=== PATIENT | male | born 1955 | race Caucasian/White ===

== ENCOUNTER 2020-05-14 10:18 | Outpatient (REF) | payer OTHER, SELFPAY ==
[2020-05-14 10:55] LABS: Estimated Average Glucose 203 mg/dL; Hemoglobin A1c % 8.7 %
[2020-05-14 10:59] LABS: Hematocrit 45.4 % (42-52); Hemoglobin 14.9 g/dl (14.0-18.0); Mean Corpuscular HGB Conc 32.8 g/dl (31.0-36.0); Mean Corpuscular Hemoglobin 29.9 pg (27.0-33.0); Mean Corpuscular Volume 91.2 fL (80-98); Mean Platelet Volume 10.9 fL (9.4-12.4); Platelet Count 226 X10*3/uL (160-400); Red Blood Count 4.98 X10*6/uL (4.60-5.80); Red Cell Distribution Width 12.8 % (11.0-16.0); White Blood Count 10.4 X10*3/uL (4.8-10.8)
[2020-05-14 11:17] LABS: Alanine Aminotransferase 12 U/L (0-40); Alkaline Phosphatase 54 U/L (39-117); Anion Gap 12 (12-20); Aspartate Amino Transferase 12 U/L (5-37); Bilirubin Direct 0.2 mg/dL (0.0-0.5); Bilirubin Total 0.5 mg/dL (0.0-1.0); Blood Urea Nitrogen 17 mg/dL (9-16); Calcium 9.2 mg/dL (8.4-10.2); Carbon Dioxide 31 mmol/L (22-29); Chloride 102 mmol/L (96-108); Cholesterol 140 mg/dL; Estimated Glomerular Filt Rate > 60; Glucose Random 136 mg/dL (60-115); HDL Cholesterol 31 mg/dL; LDL Cholesterol Calculated 84 mg/dl; Potassium 4.4 mmol/L (3.3-5.1); Sodium 141 mmol/L (135-145); Triglycerides 128 mg/dL
[2020-05-14 11:25] LABS: Thyroid Stimulating Hormone 2.67 uIU/mL (0.32-4.0)
[2020-05-19 13:22] LABS: Vitamin D 25-OH, D2 <4 ng/mL; Vitamin D 25-OH, D3 13 ng/mL; Vitamin D 25-OH, Total 13 ng/mL (30-100)
== END 2020-05-14 10:19 | disposition home or self-care (01) ==
LOC: HO.LAB 10:18
PROVIDERS: PCP Internal Medicine; Visit Provider Internal Medicine
DX: I10 Essential (primary) hypertension (principal); E11.39 Type 2 diabetes mellitus with other diabetic ophthalmic complication; E11.65 Type 2 diabetes mellitus with hyperglycemia; F41.9 Anxiety disorder, unspecified; K21.9 Gastro-esophageal reflux disease without esophagitis
CPT/HCPCS: 36415; 80048; 80061; 80076; 82306; 83036; 84443; 85027

== ENCOUNTER → 2020-06-28 08:31 | Outpatient (BNVA) | payer OTHER, SELFPAY | PROVIDERS: PCP Internal Medicine; Visit Provider Internal Medicine | DX: S50.11XA Contusion of right forearm, initial encounter (principal); S50.811A Abrasion of right forearm, initial encounter; W22.8XXA Striking against or struck by other objects, initial encounter | CPT/HCPCS: 73090; 99203 ==

== ENCOUNTER 2020-07-30 16:01 | Outpatient (REF) | payer OTHER, SELFPAY ==
[2020-07-31 11:27] LABS: Immunoglobulin A 297 mg/dL (70-320)
[2020-08-01 21:51] LABS: Transglutaminase Ab IgG 1 U/mL; Transglutaminase IgA 1 U/mL
[2020-08-01 22:42] LABS: Gliadin Deamidated IgA Ab 4 Units; Gliadin Deamidated IgG Ab 2 Units
[2020-08-05 12:06] LABS: Endomysial IgA Antibody Negative (Negative)
== END 2020-07-30 16:02 | disposition home or self-care (01) ==
LOC: HO.LAB 16:01
PROVIDERS: PCP Internal Medicine; Visit Provider Internal Medicine
DX: R19.7 Diarrhea, unspecified (principal)
CPT/HCPCS: 36415; 82784; 83516; 86255; 86256

== ENCOUNTER 2020-08-23 10:14 | Day surgery (SDC) | payer OTHER, SELFPAY ==
--- NOTE | 2020-08-22 10:27 | P.CONAN_ITS ---
Documented by User: Alondra Monzon 08/22/20 10:29 HPI - Anesthesia Eval Consult details Narrative: 65yo M for Upper Endoscopy with Balloon Dilitation and Colonoscopy Eliquis for afib PMFSH Active Problems Active Problems: All Active Problems (Updated 08/19/20 @ 11:42 by Viviane Sneed) Preoperative clearance (Acute) Abrasion forearm (Acute) Fecal incontinence (Acute) GERD (gastroesophageal reflux disease) (Acute) Anxiety (Acute) Benign essential HTN (Acute) Past Medical History Medical History (Updated 08/22/20 @ 10:28 by Alondra Monzon) AA (alcohol abuse) Anxiety B12 deficiency Benign essential HTN Benign prostatic hyperplasia without lower urinary tract symptoms Body mass index [BMI] 38.0-38.9, adult DM (diabetes mellitus) type II uncontrolled with eye manifestation Fecal incontinence GERD (gastroesophageal reflux disease) Hiatal hernia History of cardioversion Hypercholesterolemia Morbid (severe) obesity due to excess calories On anticoagulant therapy On beta nga at home FLORES (obstructive sleep apnea) Paroxysmal atrial fibrillation Type 2 diabetes mellitus with diabetic autonomic (poly)neuropathy Family History Family History Father No problems noted. Mother Asthma Brother No problems noted. Brother No problems noted. Brother No problems noted. Sister No problems noted. Sister No problems noted. Surgical History Surgical History (Updated 08/19/20 @ 11:35 by Viviane Sneed) Deficient knowledge of leg surgery H/O left inguinal hernia repair History of amputation of toe History of cataract surgery History of esophagogastroduodenoscopy (EGD) History of hip surgery History of surgery History of tonsillectomy Hx of colonoscopy Social History Social History Alcohol intake: former Patient Tobacco Use Status: Never used Tobacco Second Hand Smoke Exposure: No Use of substances other than those prescribed or required for medical reasons: Yes Are you DNR?: No Advance Directives: No Advance Directives Information Provided: Yes Advance Directives on File: No Meds Allergies Allergy/AdvReac Type Severity Reaction Status Date / Time No Known Allergies Allergy Unknown unknown Verified 05/14/20 09:15 [NO KNOWN ALLERGIES] Home Medications Medication Instructions Recorded Confirmed Last Taken Type atorvastatin 10 mg tablet 10 mg PO DAILY 12/19/19 08/19/20 Unknown History omeprazole 20 mg capsule,delayed 20 mg PO QAM 12/19/19 08/19/20 Unknown History release pen needle, diabetic 31 gauge x #1200 ea 12/19/19 05/14/20 Unknown History 07/21 trazodone 100 mg tablet 100 mg PO BEDTIME 12/19/19 08/19/20 Unknown History Exam Exam Date and Time: August 22, 2020 1027 Pertinent Lab Results Pertinent Lab Results: Laboratory Tests 05/14/20 05/14/20 10:26 10:26 WBC 10.4 Hgb 14.9 Hct 45.4 Plt Count 226 Sodium 141 Potassium 4.4 Chloride 102 Carbon Dioxide 31 H BUN 17 H Creatinine 1.02 Assessment and Plan Assessment Anesthesia Assessment: Chart Reviewed Documented by User: Dyana Arrington 08/23/20 11:49 [facility] Past Medical History Medical History (Updated 08/22/20 @ 10:28 by Alondra Monzon) AA (alcohol abuse) Anxiety B12 deficiency Benign essential HTN Benign prostatic hyperplasia without lower urinary tract symptoms Body mass index [BMI] 38.0-38.9, adult DM (diabetes mellitus) type II uncontrolled with eye manifestation Fecal incontinence GERD (gastroesophageal reflux disease) Hiatal hernia History of cardioversion Hypercholesterolemia Morbid (severe) obesity due to excess calories On anticoagulant therapy On beta nga at home FLORES (obstructive sleep apnea) Paroxysmal atrial fibrillation Type 2 diabetes mellitus with diabetic autonomic (poly)neuropathy Family History Family History Father No problems noted. Mother Asthma Brother No problems noted. Brother No problems noted. Brother No problems noted. Sister No problems noted. Sister No problems noted. Surgical History Surgical History (Updated 08/19/20 @ 11:35 by Viviane Sneed) Deficient knowledge of leg surgery H/O left inguinal hernia repair History of amputation of toe History of cataract surgery History of esophagogastroduodenoscopy (EGD) History of hip surgery History of surgery History of tonsillectomy Hx of colonoscopy Social History Social History Alcohol intake: former Patient Tobacco Use Status: Never used Tobacco Second Hand Smoke Exposure: No Use of substances other than those prescribed or required for medical reasons: Yes Are you DNR?: No Advance Directives: No Advance Directives Information Provided: Yes Advance Directives on File: No Meds Allergies Allergy/AdvReac Type Severity Reaction Status Date / Time No Known Allergies Allergy Unknown unknown Verified 05/14/20 09:15 [NO KNOWN ALLERGIES] Home Medications Medication Instructions Recorded Confirmed Last Taken Type atorvastatin 10 mg tablet 10 mg PO DAILY 12/19/19 08/19/20 Unknown History omeprazole 20 mg capsule,delayed 20 mg PO QAM 12/19/19 08/19/20 Unknown History release pen needle, diabetic 31 gauge x #1200 ea 12/19/19 05/14/20 Unknown History 16 trazodone 100 mg tablet 100 mg PO BEDTIME 12/19/19 08/19/20 Unknown History Exam Airway Mallampati Class: II (Missing multiple teeth) TM Dist: >3cm Neck ROM: Full Heart: rrr Lungs: cta Assessment and Plan Assessment Anesthesia Assessment: Anesthesia Plan Discussed and Chart Reviewed Final Anesthetic Review NPO: Yes ASA Class: III Final Preanesthetic Review: No Changes in Pt Med Stat and Consent Obtaine d/Reviewed Patient Risk: Intermediate Procedure Risk: Intermediate Anesthetic Plan Anesthetic Plan: MAC: Disposition: Standard PACU
[2020-08-23 10:28] VITALS: BMI 33.4
[2020-08-23 10:44] VITALS: BP 140/87; PULSE 101; RESP 20; TEMP 36.3; O2SAT 95
[2020-08-23 10:47] LABS: Glucose, Whole Blood 103 mg/dL (60-115)
[2020-08-23] MEDS: Lactated Ringers 1,000 ML 100 ML IVCONT (10:51)
[2020-08-23 12:53] VITALS: BP 141/82; PULSE 105; RESP 16; TEMP 36.7; O2SAT 93
--- NOTE | 2020-08-23 12:59 | P.BOP_ITS ---
Brief Operative Note Date of Service: 08/23/20 Pre-op diagnosis: GERD, Dysphagia, Diarrhea, Rectal Bleeding Post-op diagnosis: other (Esophageal stricture, Hiatal hernia, Diverticulosis, Internal hemorrhoids) Procedure: EGD with Balloon dilation and biopsies, Colonoscopy to the cecum and TI with biopsies Surgeon: Erik Gong Anesthesia: MAC Was an Fixture Builder used for this Procedure?: No Estimated blood loss (mL): 4.0 Pathology: other (A. Descending duodenum B. Ascending colon C. Descending colon) Condition: stable Disposition: PACU
[2020-08-23 13:11] VITALS: BP 130/86; PULSE 91; RESP 18; TEMP 36.7; O2SAT 96
--- NOTE | 2020-08-23 14:30 | OP_ITS ---
SURGEON: Erik Gong MD INDICATIONS: Full consent has been obtained from him for this, including risks of bleeding and perforation. PREOPERATIVE DIAGNOSIS: POSTOPERATIVE DIAGNOSIS: PROCEDURE PERFORMED: Esophagogastroduodenoscopy with biopsies and balloon dilation of esophageal stricture, and colonoscopy to cecum and terminal ileum with biopsies. ESTIMATED BLOOD LOSS: COMPLICATIONS: ANESTHESIA: Monitored anesthesia care. ASSISTANTS: SPECIMENS: PREOPERATIVE DIAGNOSES: Gastroesophageal reflux, dysphagia, change in bowel habits with associated rectal bleeding and diarrhea. POSTOPERATIVE DIAGNOSES: Gastroesophageal reflux, dysphagia, change in bowel habits with associated rectal bleeding and diarrhea, hiatal hernia, mild distal esophageal stricture, rule out celiac disease, rule out microscopic colitis, diverticulosis, and internal hemorrhoids. DESCRIPTION OF PROCEDURE: The patient was placed in the left lateral decubitus position. The Olympus video gastroscope was passed in the posterior oropharynx and upper esophagus under direct vision. The scope was passed slowly into the distal esophagus. The gastroesophageal junction appeared at 35 cm. With insufflation of air, this opened well, although there did appear to be a very mild fibrotic esophageal stricture. The scope easily passed this into a moderate-sized hiatal hernia. The scope was advanced to the pylorus and the duodenum was cannulated to the descending portion. The duodenum including the bulb appeared normal without mass or ulceration. Biopsies were obtained from the descending portion of the duodenum to rule out celiac disease. The scope was withdrawn back into the stomach. The gastric antrum and body appeared normal with good peristalsis. The scope was retroflexed visualizing the proximal stomach carefully, which appeared normal, without any sign of mass or ulceration. The scope was straightened out and withdrawn back into the esophagus. I did use a [employer] incremental balloon to dilate the mild stricture at 35 cm with an 18 mm and 19 mm balloon at the recommended pressure for between 30 and 60 seconds each. Post dilation, the ring was definitely disrupted. The esophageal mucosa proximal to this appeared normal. The scope was withdrawn from the patient. He was turned around for the colonoscopy. The digital rectal exam revealed no abnormalities. The Olympus video pediatric colonoscope was entered into the rectum and advanced easily to the cecum. Once in the cecum, I did identify normal-appearing cecal pouch with appendiceal orifice and a normal-appearing ileocecal valve. The terminal ileum was cannulated and appeared normal. The scope was withdrawn back in the colon. The entire cecum and ileocecal valve appeared normal. The scope was then slowly withdrawn assessing all mucosal surfaces carefully. Preparation was excellent. I did not visualize any sign of polyps, colitis, nor angiodysplasia. There was a mild amount of sigmoid diverticulosis. I did obtain random biopsies in the ascending and descending colon. In the rectum, scope was retroflexed visualizing internal hemorrhoids, but no other pathology. The rectal mucosa appeared normal. The scope was straightened out and withdrawn from the patient. He tolerated the procedure well and was returned to the recovery area in stable condition. IMPRESSION: 1. Hiatal hernia. 2. Esophageal stricture, status post balloon dilation. 3. Rule out celiac disease. 4. Diverticulosis. 5. Rule out microscopic colitis. 6. Internal hemorrhoids. PLAN: The results of the biopsies will be checked. He will continue his daily omeprazole. He will continue his Imodium for relief of any loose bowel movements. He does report that since eliminating dairy from his diet, he has been feeling better in regard to the loose bowel movements. I did advise him to stay on a relatively lactose-free diet. I would recommend a repeat colonoscopy in 10 years for further screening given an otherwise negative exam today and the negative exam in 2015. He was advised not to use any aspirin and NSAIDs for 1 week. If things are stable, he will see me on a p.r.n. basis. MD AKBAR Michaels/BONITA / [phone]
== END 2020-08-23 14:05 | disposition home or self-care (01) ==
PROVIDERS: PCP Internal Medicine; Visit Provider Internal Medicine
PROC: (CPT 45380; principal; 2020-08-23 11:30)
PROC: 0DJD8ZZ Inspection of Lower Intestinal Tract, Via Natural or Artificial Opening Endoscopic (ICD-10-PCS; CPT 45378; 2020-08-23 11:30)
DX: K62.5 Hemorrhage of anus and rectum (principal); R19.7 Diarrhea, unspecified; K57.30 Diverticulosis of large intestine without perforation or abscess without bleeding; K64.8 Other hemorrhoids; K22.2 Esophageal obstruction; K44.9 Diaphragmatic hernia without obstruction or gangrene; K21.9 Gastro-esophageal reflux disease without esophagitis; I10 Essential (primary) hypertension; E11.9 Type 2 diabetes mellitus without complications; I48.0 Paroxysmal atrial fibrillation; G47.33 Obstructive sleep apnea (adult) (pediatric); Z79.01 Long term (current) use of anticoagulants; Z79.4 Long term (current) use of insulin; Z79.899 Other long term (current) drug therapy
CPT/HCPCS: 45380; 43249; 43239; 82947; 88305; C1726; J3010

== ENCOUNTER 2020-08-27 16:22 | Outpatient (REF) | payer OTHER, SELFPAY ==
[2020-08-27 16:56] LABS: Hematocrit 42.8 % (42-52); Hemoglobin 14.2 g/dl (14.0-18.0); Mean Corpuscular HGB Conc 33.2 g/dl (31.0-36.0); Mean Corpuscular Volume 90.3 fL (80-98); Mean Platelet Volume 10.7 fL (9.4-12.4); Platelet Count 225 X10*3/uL (160-400); Red Blood Count 4.74 X10*6/uL (4.60-5.80); Red Cell Distribution Width 13.2 % (11.0-16.0); White Blood Count 10.7 X10*3/uL (4.8-10.8)
[2020-08-27 17:03] LABS: Estimated Average Glucose 186 mg/dL; Hemoglobin A1c % 8.1 %
[2020-08-27 17:25] LABS: Alanine Aminotransferase 9 U/L (0-40); Albumin Level 4.1 g/dL (3.5-5.0); Alkaline Phosphatase 60 U/L (39-117); Aspartate Amino Transferase 16 U/L (5-37); Bilirubin Direct 0.3 mg/dL (0.0-0.5); Bilirubin Total 0.8 mg/dL (0.0-1.0); Cholesterol 132 mg/dL; HDL Cholesterol 30 mg/dL; LDL Cholesterol Calculated 75 mg/dl; Triglycerides 137 mg/dL
[2020-08-27 17:33] LABS: Creatinine Urine 246.99 mg/dL; Microalbum/Creatinine Ratio Ur 25.5 ug/mg cr
[2020-08-31 16:37] LABS: Testosterone, Free 67.6 pg/mL (35.0-155.0); Testosterone, Total 457 ng/dL (250-1100)
== END 2020-08-27 16:23 | disposition home or self-care (01) ==
LOC: HO.LAB 16:22
PROVIDERS: PCP Internal Medicine; Visit Provider Internal Medicine
DX: E11.621 Type 2 diabetes mellitus with foot ulcer (principal); L97.529 Non-pressure chronic ulcer of other part of left foot with unspecified severity; E11.39 Type 2 diabetes mellitus with other diabetic ophthalmic complication; E11.65 Type 2 diabetes mellitus with hyperglycemia
CPT/HCPCS: 36415; 80061; 80076; 82043; 83036; 84402; 84403; 85027

== ENCOUNTER 2020-08-29 08:29 | Outpatient (RCR) | payer OTHER, SELFPAY | END 2020-09-18 14:00 | disposition home or self-care (01) | LOC: HO.WCC 08:29 | PROVIDERS: PCP Internal Medicine; Visit Provider Surgery | DX: E11.622 Type 2 diabetes mellitus with other skin ulcer (principal); L97.322 Non-pressure chronic ulcer of left ankle with fat layer exposed; E11.59 Type 2 diabetes mellitus with other circulatory complications; E11.40 Type 2 diabetes mellitus with diabetic neuropathy, unspecified; E11.51 Type 2 diabetes mellitus with diabetic peripheral angiopathy without gangrene; F12.90 Cannabis use, unspecified, uncomplicated; I10 Essential (primary) hypertension; Z79.4 Long term (current) use of insulin | CPT/HCPCS: 11042; 97597; 99212; 99213; 99214 ==

== ENCOUNTER → 2020-11-18 12:12 | Outpatient (BNVA) | payer OTHER, SELFPAY | PROVIDERS: PCP Internal Medicine; Referring Provider Internal Medicine; Visit Provider Internal Medicine | DX: I48.19 Other persistent atrial fibrillation (principal); I10 Essential (primary) hypertension; G47.33 Obstructive sleep apnea (adult) (pediatric) | CPT/HCPCS: 93005 ==

== ENCOUNTER 2021-03-01 04:36 | Emergency (ER) | payer OTHER, SELFPAY ==
--- NOTE | 2021-03-01 | ECG_ITS ---
Test Reason : DIZZINESS Blood Pressure : / mmHG Vent. Rate : 082 BPM Atrial Rate : 000 BPM P-R Int : 000 ms QRS Dur : 080 ms QT Int : 356 ms P-R-T Axes : 000 028 027 degrees QTc Int : 415 ms Atrial fibrillation Abnormal ECG When compared with ECG of 05-MAR-2019 20:54, Atrial fibrillation has replaced Atrial flutter Referred By: Generic ED Physician Electronically Signed By:TIO SEQUEIRA
--- NOTE | ~2021-03-01 | CT_ITS ---
EXAMINATION: CT HEAD WITHOUT CONTRAST CLINICAL INFORMATION: Fall with right-sided head injury. COMPARISON: CT head 03/06/2019. TECHNIQUE: Contiguous axial imaging was performed from the skull base to vertex without intravenous administration of contrast. This CT examination was performed using dose optimization techniques as appropriate, variously including the following: *Automated exposure control *Adjustment of mA and/or kV according to patient size (this includes techniques or standardized protocols for targeted exams where dose is matched to indication/reason for exam; i.e. extremities or head) *Use of iterative reconstruction technique DLP: 780 mGy-cm FINDINGS: Mild diffuse commensurate prominence of ventricles and sulci is noted. Mild periventricular and subcortical white matter patchy hypodensities are visualized and may represent mild chronic microangiopathic ischemic changes. No intracranial hemorrhage, tumors or acute infarcts are noted. Bilateral ocular lens extractions are noted. No orbital emphysema noted. No significant opacification of the visualized paranasal sinuses, mastoid air cells and middle ear cavities. CT/CT head/brain wo con IMPRESSION: *No acute intracranial abnormalities.
[2021-03-01 04:45] VITALS: BP 119/61; PULSE 89; RESP 18; TEMP 36.6; O2SAT 96; BMI 38.0
[2021-03-01 06:33] LABS: Basophils Percent Auto 0.3 % (0-2); Eosinophils Absolute Auto 0.1 X10*3/uL (0.0-0.4); Eosinophils Percent Auto 1.6 % (0-4); Hematocrit 40.3 % (42.0-52.0); Hemoglobin 13.1 g/dl (14.0-18.0); Imm Gran Abs Auto 0.09 X10*3/uL (0.00-0.03); Lymphocytes Absolute Auto 1.7 X10*3/uL (1.2-4.9); Lymphocytes Percent Auto 18.7 % (20-40); MANUAL DIFF FLAG NO; Mean Corpuscular HGB Conc 32.5 g/dl (31.0-36.0); Mean Corpuscular Hemoglobin 31.5 pg (27.0-33.0); Mean Corpuscular Volume 96.9 fL (80.0-98.0); Mean Platelet Volume 10.2 fL (9.4-12.4); Monocytes Absolute Auto 0.9 X10*3/uL (0.1-1.2); Monocytes Percent Auto 10.2 % (2-11); Neutrophils Absolute Auto 6.1 x10*3/uL (2.0-8.3); Neutrophils Percent Auto 68.2 % (45-73); Platelet Count 210 X10*3/uL (160-400); Red Blood Count 4.16 X10*6/uL (4.60-5.80); Red Cell Distribution Width 13.7 % (11.0-16.0)
[2021-03-01 06:56] LABS: Troponin-I High Sensitivity 4.4 ng/L (<3.5-35.0)
[2021-03-01 07:03] LABS: Alanine Aminotransferase 18 U/L (0-40); Albumin Level 3.7 g/dL (3.5-5.0); Alkaline Phosphatase 55 U/L (39-117); Anion Gap 13 (12-20); Aspartate Amino Transferase 17 U/L (5-37); Bilirubin Total 0.4 mg/dL (0.0-1.0); Blood Urea Nitrogen 23 mg/dL (9-16); Calcium 9.3 mg/dL (8.4-10.2); Carbon Dioxide 31 mmol/L (22-29); Chloride 104 mmol/L (96-108); Creatinine Clr Calc Pharmacy 72.8; Estimated Glomerular Filt Rate 57; Glucose Random 183 mg/dL (60-115); Potassium 5.4 mmol/L (3.3-5.1); Sodium 143 mmol/L (135-145); Total Protein 6.6 g/dL (6.5-8.0)
[2021-03-01 07:14] LABS: Influenza A PCR NEGATIVE (Negative); Influenza B PCR NEGATIVE (Negative); Resp Syncy Virus RNA Qual PCR NEGATIVE (Negative); SARS COV2 PCR INHOUSE NEGATIVE (Negative)
--- NOTE | 2021-03-01 07:43 | ED_ITS ---
HPI - General Adult General Chief complaint: General Medical Stated complaint: diabetic, stroke concerns ? Time Seen by Provider: 03/01/21 07:43 Source: patient Mode of arrival: ambulatory Limitations: no limitations History of Present Illness HPI narrative: 65-year-old male who presents emergency department for evaluation of dizziness, feeling off balance, nausea and weakness. The patient states that he felt fine yesterday. He states that at 2:00 a.m. on the day of arrival he woke up and felt very dizzy. He states that he had difficulty walking had to hold onto dick. He also felt like he was going to pass out. He had associated nausea but no vomiting. He states that he had a similar presentation 2 years prior and was told that was secondary to his alcohol use. Patient states that does drink alcohol mainly on the weekends. He states that he did have 3-4 beers to drink last night. The patient states that he did drink too much a week prior and fell striking the right side of his head. He states that he had bleeding from a small laceration but does not believe that he passed out. He was not seen at that time from the fall. He denied associated chest pain but he states that his right arm did feel tingly and numb and this is resolved. He did get diaphoretic with his symptoms. He denied fever, chills, states that he has a cough it is unchanged from his baseline, he denied change in his bowel movements or change in his urinary frequency. Patient states he has received a 2 shot COVID vaccine. Related Data Home Medications Medication Instructions Recorded Confirmed omeprazole 20 mg capsule,delayed 20 mg PO QAM 12/19/19 11/18/20 release pen needle, diabetic 31 gauge x #1200 ea 12/19/19 11/18/2007/21 trazodone 100 mg tablet 100 mg PO BEDTIME 12/19/19 11/18/20 cholecalciferol (vitamin D3) 25 25 mcg PO DAILY 10/14/20 11/18/20 mcg (1,000 unit) tablet Previous Rx's Medication Instructions Recorded pen needle, diabetic 29 gauge x #100 ea 12/12/1903/09 (Ultra-Thin II Insulin Pen [place]) folic acid 1 mg tablet 1 mg PO DAILY #90 tab 09/04/20 pioglitazone 30 mg tablet 30 mg PO DAILY #90 tab 09/11/20 citalopram 10 mg tablet 10 mg PO DAILY #90 tab 10/29/20 metoprolol tartrate 100 mg tablet 100 mg PO BID #180 cap 12/02/20 simvastatin 20 mg tablet 20 mg PO QPM #90 cap 01/04/21 metformin 1,000 mg tablet 1,000 mg PO BID #180 cap 01/10/21 blood sugar diagnostic #100 ea 01/11/21 apixaban 5 mg tablet (Eliquis) 5 mg PO BID 90 Days #180 tab 01/23/21 insulin glargine 100 unit/mL (3 40 unit (0.4 mL) SUBCUT BEDTIME 02/12/21 mL) subcutaneous pen (Lantus #15 ml Solostar U-100 Insulin) Allergies Allergy/AdvReac Type Severity Reaction Status Date / Time No Known Allergies Allergy Unknown unknown Verified 03/01/21 06:34 [NO KNOWN ALLERGIES] Review of Systems Review of Systems: Yes all other systems are reviewed and are negative [facility] Past Medical History [facility] Narrative: Past social history: The patient denies tobacco use. He does drink he states he mainly drinks on the weekend. He did have at least 3-4 beers to drink last night. He states that he smokes 2 joints of marijuana daily. Medical History AA (alcohol abuse) Anxiety B12 deficiency Benign essential HTN Benign prostatic hyperplasia without lower urinary tract symptoms Body mass index [BMI] 38.0-38.9, adult DM (diabetes mellitus) type II uncontrolled with eye manifestation Fecal incontinence Foot ulcer, left GERD (gastroesophageal reflux disease) Hiatal hernia History of cardioversion Hypercholesterolemia Morbid (severe) obesity due to excess calories On anticoagulant therapy On beta nga at home FLORES (obstructive sleep apnea) Paroxysmal atrial fibrillation Type 2 diabetes mellitus with diabetic autonomic (poly)neuropathy Surgical History Deficient knowledge of leg surgery H/O left inguinal hernia repair History of amputation of toe History of cataract surgery History of esophagogastroduodenoscopy (EGD) History of hip surgery History of surgery History of tonsillectomy Hx of colonoscopy Family History Family History Father No problems noted. Mother Asthma Brother No problems noted. Brother No problems noted. Brother No problems noted. Sister No problems noted. Sister No problems noted. Social History Social History Housing: Apartment Alcohol intake: current Alcohol intake frequency: 3 or more drinks per day Alcohol type: beer Patient Tobacco Use Status: Never used Tobacco e-Cigarette/Vaping Use: Never Used Second Hand Smoke Exposure: No Use of substances other than those prescribed or required for medical reasons: Yes Substance Use Type: Marijuana Advance Directives: No Advance Directives Information Provided: Yes service: No Current occupational status: retired Cognitive needs: No Hearing needs: No Vision needs: Yes (Reading Glasses) Physical Exam Vital Signs: Vital Signs: Last Vital Signs Temp 97.9 F 03/01/21 04:45 Pulse 84 03/01/21 08:21 Resp 20 03/01/21 08:21 BP 147/82 H 03/01/21 08:21 Pulse Ox 96 03/01/21 08:21 BMI result Body Mass Index 38.0 Const: General: cooperative and no acute distress Orientation/consciousness: oriented to person and oriented to place Limitations: no limitations HENMT: Other: Abrasion to right forehead with a small hematoma, this is old and is healing, there is no tenderness palpation of this area Head: Yes normal to inspection and Yes normocephalic Ears: external ears normal General nose exam: Normal external nose present Face and sinus: Yes normal facial exam Mouth: Normal oral and palatal mucosa present Throat: Yes posterior oropharynx normal Eyes: General: appearance normal, both eyes and all related structures Pupils: Equal, round and reactive pupils present Neck: Neck: Yes normal visual inspection, Yes no lymphadenopathy, Yes trachea midline and Yes supple Chest: Chest palpation & inspection: normal inspection of the chest and normal palpation of entire chest wall Resp: Effort & Inspection: normal respiratory effort and able to speak in complete sentences Auscultation: clear to auscultation bilaterally Cardio: Rate: regular rate Rhythm: regular rhythm Heart sounds: S1 normal heart sound present, S2 normal heart sound present and no murmurs GI: Inspection: Yes normal to inspection Palpation (GI): Soft to palpation, nontender and no guarding Auscultation: normal bowel sounds : General: Yes no CVA tenderness Back/Spine/Pelvis: Back: no CVA tenderness Skin: General skin exam: no rashes or lesions noted Neuro: General: oriented to person and oriented to place Cranial nerves: Yes CN's II-XII intact bilaterally and Yes Equal, round and reactive pupils present Cognition (Neuro): normal cognition Motor exam (neuro): 5/5 motor strength present throughout Coordination: [id number] test normal and [id number] test normal Extrem: General: Yes normal to inspection Psych: Appearance: grossly normal Speech and movement: Normal speech and movement present Affect: normal affect Attitude: cooperative Thought process: Normal thought process present Thought content: Normal thought content present Course Course Course Narrative: 65-year-old male who presents emergency department for evaluation of sudden onset dizziness with off balance sensation which occurred at 2:00 a.m.. He had associated diaphoresis, nausea and right arm tingling otherwise no other symptoms. The patient states that his symptoms have resolved. The patient did have a fall 1 week prior with a head injury. He states that he had similar symptoms 2 years prior and was told that it was secondary to his alcohol consumption. The patient's vital signs were normal. Physical examination did reveal an abrasion with the healing hematoma to the right forehead from his fall 1 week prior. His neurologic exam was otherwise nonfocal with good finger to nose finger and heel to palmer. I ordered a CBC, CM P, troponin, COVID/influenza/RSV test, CT scan of the brain without IV contrast. Patient was ordered to get normal saline IV x1 L and Zofran 4 mg IV. 0815: Laboratory evaluation: CBC normal. CMP elevated potassium 5.4, elevated bicarb 31, elevated BUN 23 with a normal creatinine of 1.27, elevated glucose 183. High sensitivity troponin I was detectable but not elevated at 4.4. COVID-19/influenza/RSV were negative. Twelve EKG was unremarkable. 1051: The patient's repeat 3 hour troponin was lower at 3.6. Patient is feeling better after receiving IV fluid. Patient's symptoms are most likely secondary to dehydration/volume depletion. I did discuss this with him. He was advised to increase his fluid intake today, increase his fluid intake and to follow-up his glucose. The patient was given printed and verbal instructions. Medical Decision Making Lab Data Result diagrams: 03/01/21 06:27 03/01/21 06:27 Labs: Lab Results 03/01/21 03/01/21 03/01/21 Range/Units 06:27 06:27 06:27 WBC 9.0 (4.8-10.8) X10*3/uL RBC 4.16 L (4.60-5.80) X10*6/uL Hgb 13.1 L (14.0-18.0) g/dl Hct 40.3 L (42.0-52.0) % MCV 96.9 (80.0-98.0) fL MCH 31.5 (27.0-33.0) pg MCHC 32.5 (31.0-36.0) g/dl RDW 13.7 (11.0-16.0) % Plt Count 210 (160-400) X10*3/uL MPV 10.2 (9.4-12.4) fL Immature Gran % (Auto) 1.0 H (0.0-0.4) % Neut % (Auto) 68.2 (45-73) % Lymph % (Auto) 18.7 L (20-40) % [place] % (Auto) 10.2 (2-11) % Eos % (Auto) 1.6 (0-4) % Baso % (Auto) 0.3 (0-2) % Lymph # (Auto) 1.7 (1.2-4.9) X10*3/uL [place] # (Auto) 0.9 (0.1-1.2) X10*3/uL Eos # (Auto) 0.1 (0.0-0.4) X10*3/uL Baso # (Auto) 0.0 (0.0-0.2) X10*3/uL Abs Immat Gran (auto) 0.09 H (0.00-0.03) X10*3/uL Absolute Neuts (auto) 6.1 (2.0-8.3) x10*3/uL Absolute Nucleated RBC 0.000 (0.0-0.012) X10*3/uL Nucleated RBC % (auto) 0.0 (0.0-0.2) /100WBC Sodium 143 (135-145) mmol/L Potassium 5.4 H D (3.3-5.1) mmol/L Chloride 104 (96-108) mmol/L Carbon Dioxide 31 H (22-29) mmol/L Anion Gap 13 (12-20) BUN 23 H (9-16) mg/dL Creatinine 1.27 (0.5-1.4) mg/dL Estim Creat Clear Calc 72.8 Estimated GFR 57 Random Glucose 183 H (60-115) mg/dL Calcium 9.3 (8.4-10.2) mg/dL Total Bilirubin 0.4 (0.0-1.0) mg/dL AST 17 (5-37) U/L ALT 18 (0-40) U/L Alkaline Phosphatase 55 (39-117) U/L Troponin I High Sens (<3.5-35.0) ng/L Total Protein 6.6 (6.5-8.0) g/dL Albumin 3.7 (3.5-5.0) g/dL Influenza Type A (PCR) NEGATIVE (Negative) Influenza Type B (PCR) NEGATIVE (Negative) RSV RNA Qual (PCR) NEGATIVE (Negative) SARS-CoV-2 RNA (RT-PCR) NEGATIVE (Negative) 03/01/21 03/01/21 Range/Units 06:27 10:08 WBC (4.8-10.8) X10*3/uL RBC (4.60-5.80) X10*6/uL Hgb (14.0-18.0) g/dl Hct (42.0-52.0) % MCV (80.0-98.0) fL MCH (27.0-33.0) pg MCHC (31.0-36.0) g/dl RDW (11.0-16.0) % Plt Count (160-400) X10*3/uL MPV (9.4-12.4) fL Immature Gran % (Auto) (0.0-0.4) % Neut % (Auto) (45-73) % Lymph % (Auto) (20-40) % [place] % (Auto) (2-11) % Eos % (Auto) (0-4) % Baso % (Auto) (0-2) % Lymph # (Auto) (1.2-4.9) X10*3/uL [place] # (Auto) (0.1-1.2) X10*3/uL Eos # (Auto) (0.0-0.4) X10*3/uL Baso # (Auto) (0.0-0.2) X10*3/uL Abs Immat Gran (auto) (0.00-0.03) X10*3/uL Absolute Neuts (auto) (2.0-8.3) x10*3/uL Absolute Nucleated RBC (0.0-0.012) X10*3/uL Nucleated RBC % (auto) (0.0-0.2) /100WBC Sodium (135-145) mmol/L Potassium (3.3-5.1) mmol/L Chloride (96-108) mmol/L Carbon Dioxide (22-29) mmol/L Anion Gap (12-20) BUN (9-16) mg/dL Creatinine (0.5-1.4) mg/dL Estim Creat Clear Calc Estimated GFR Random Glucose (60-115) mg/dL Calcium (8.4-10.2) mg/dL Total Bilirubin (0.0-1.0) mg/dL AST (5-37) U/L ALT (0-40) U/L Alkaline Phosphatase (39-117) U/L Troponin I High Sens 4.4 3.6 (<3.5-35.0) ng/L Total Protein (6.5-8.0) g/dL Albumin (3.5-5.0) g/dL Influenza Type A (PCR) (Negative) Influenza Type B (PCR) (Negative) RSV RNA Qual (PCR) (Negative) SARS-CoV-2 RNA (RT-PCR) (Negative) ECG Data Attestation: I personally reviewed and interpreted this ECG as follows: Interpretation: 0630: Atrial fibrillation with a rate of 82, normal QRS duration and QTC interval. no ST segment elevation, no ST segment depression, no PVCs, inverted T-wave in lead 3. Normal QRS and QTC intervals. Discharge Plan Discharge Clinical Impression: Dizziness, Acute dehydration Patient Disposition: Home, Self-Care Instructions: Dehydration (ED) Additional Instructions: Your laboratory evaluation revealed a detectable but not elevated troponin (marker of heart damage/heart attack) Your troponin initially was 4.4 and then 3 hours later who was only 3.6, this is reassuring and suggests that you did not have a heart attack is the cause of your symptoms. Usually with heart damage last heart attack your troponin is greater than 30. Your other blood work was unremarkable. The CT scan of your head revealed no fracture and no bleeding in your head from your fall last week. Your COVID-19, influenza and RSV virus tests were all negative. At this time, I believe that your symptoms are caused by dehydration. Make sure you increase your fluid intake throughout the day today. You should also follow your glucose 2 to 3 times a day and if it is low you need to eat more food or drink juice to increase your sugar. Follow-up with your doctor in 2 days. Please return to the emergency department if your symptoms get worse or if you develop any symptoms that are concerning to you. Prescriptions: No Action (DME) pen needle, diabetic [Ultra-Thin II Ins Pen [place]] 29 gauge x 1/2 needle See Rx Instructions .ROUTE .MEDSUPPLY Qty: 100 RF: 1 folic acid 1 mg tablet 1 mg PO DAILY Qty: 90 RF: 1 pioglitazone 30 mg tablet 30 mg PO DAILY Qty: 90 RF: 1 citalopram 10 mg tablet 10 mg PO DAILY Qty: 90 RF: 1 metoprolol tartrate 100 mg tablet 100 mg PO BID Qty: 180 RF: 1 simvastatin 20 mg tablet 20 mg PO QPM Qty: 90 RF: 1 metformin 1,000 mg tablet 1,000 mg PO BID Qty: 180 RF: 1 (DME) blood sugar diagnostic Strip See Rx Instructions ea .ROUTE TID Qty: 100 RF: 6 Lantus Solostar U-100 Insulin 100 unit/mL (3 mL) insulin pen 40 unit subcut BEDTIME Qty: 15 RF: 1 cholecalciferol (vitamin D3) 25 mcg (1,000 unit) tablet 25 mcg PO DAILY RF: 0 Eliquis 5 mg tablet 5 mg PO BID 90 Days Qty: 180 RF: 0 Hold Instructions: Doctor's Order omeprazole 20 mg capsule,delayed release(DR/EC) 20 mg PO QAM RF: 0 trazodone 100 mg tablet 100 mg PO BEDTIME RF: 0 (DME) pen needle, diabetic 31 gauge x 5/16 needle See Rx Instructions ea subcut DAILY Qty: 1200 RF: 0
[2021-03-01] MEDS: ondansetron HCL 4 MG/2 ML VIAL IVPUSH (08:20)
[2021-03-01] MEDS: 0.9 % Sodium Chloride 1,000 ML 999 ML IV (08:20)
[2021-03-01 08:21] VITALS: BP 147/82; PULSE 84; RESP 20; O2SAT 96
[2021-03-01 10:34] LABS: Troponin-I High Sensitivity 3.6 ng/L (<3.5-35.0)
[2021-03-01 11:03] VITALS: BP 144/71; PULSE 778; RESP 18; O2SAT 96
[2021-03-03 09:09] LABS: Glucose, Whole Blood 131 mg/dL (60-115)
== END 2021-03-01 11:05 | disposition home or self-care (01) ==
PROVIDERS: Emergency Provider Emergency Medicine Emergency Medical Services; PCP Internal Medicine
DX: R42 Dizziness and giddiness (principal); E86.0 Dehydration; I48.0 Paroxysmal atrial fibrillation; I10 Essential (primary) hypertension; E11.9 Type 2 diabetes mellitus without complications; Z79.01 Long term (current) use of anticoagulants; Z79.899 Other long term (current) drug therapy; Z20.822 Contact with and (suspected) exposure to COVID-19
CPT/HCPCS: 0241U; 36415; 70450; 80053; 82947; 84484; 85025; 93005; 96361; 96374; 99284; J2405

== ENCOUNTER 2021-04-24 08:43 | Outpatient (REF) | payer OTHER, SELFPAY ==
--- NOTE | ~2021-04-24 | XR_ITS ---
EXAMINATION: XR HIP, RIGHT CLINICAL INFORMATION: Unilateral lateral primary osteoarthritis right hip COMPARISON: None TECHNIQUE: Two views of the right hip. FINDINGS: AP pelvis, AP and frog-leg views right hip reveals a 18 link metal plate stabilizing posterior acetabular rim fracture. There is no acute fracture or dislocation seen. The soft tissues are normal. Right foot: There is no visible acute fracture, dislocation or subluxation seen. The soft tissues are normal. The ankle mortise and subtalar joints are normal. XR/XR hip RT w [id number] IMPRESSION: Unremarkable AP pelvis exam. Unremarkable right foot exam
[2021-04-24 09:52] LABS: Hematocrit 40.4 % (42.0-52.0); Hemoglobin 12.8 g/dl (14.0-18.0); Mean Corpuscular HGB Conc 31.7 g/dl (31.0-36.0); Mean Corpuscular Hemoglobin 30.5 pg (27.0-33.0); Mean Corpuscular Volume 96.2 fL (80.0-98.0); Mean Platelet Volume 10.2 fL (9.4-12.4); Platelet Count 250 X10*3/uL (160-400); Red Cell Distribution Width 13.3 % (11.0-16.0); White Blood Count 8.6 X10*3/uL (4.8-10.8)
[2021-04-24 10:19] LABS: Estimated Average Glucose 146 mg/dL; Hemoglobin A1c % 6.7 %
[2021-04-24 10:34] LABS: Thyroid Stimulating Hormone 5.19 uIU/mL (0.32-4.0)
[2021-04-24 10:40] LABS: Alanine Aminotransferase 15 U/L (0-40); Albumin Level 3.8 g/dL (3.5-5.0); Alkaline Phosphatase 55 U/L (39-117); Aspartate Amino Transferase 20 U/L (5-37); Bilirubin Direct 0.2 mg/dL (0.0-0.5); Bilirubin Total 0.5 mg/dL (0.0-1.0); Cholesterol 129 mg/dL; HDL Cholesterol 31 mg/dL; LDL Cholesterol Calculated 69 mg/dl; Total Protein 6.8 g/dL (6.5-8.0); Triglycerides 148 mg/dL
[2021-04-29 11:42] LABS: Vitamin D 25-OH, D2 <4 ng/mL; Vitamin D 25-OH, D3 23 ng/mL; Vitamin D 25-OH, Total 23 ng/mL (30-100)
== END 2021-04-24 08:44 | disposition home or self-care (01) ==
LOC: HO.LAB 08:43
PROVIDERS: PCP Internal Medicine; Visit Provider Internal Medicine
DX: M16.11 Unilateral primary osteoarthritis, right hip (principal); E11.39 Type 2 diabetes mellitus with other diabetic ophthalmic complication; E11.65 Type 2 diabetes mellitus with hyperglycemia; E66.01 Morbid (severe) obesity due to excess calories; I10 Essential (primary) hypertension; I48.19 Other persistent atrial fibrillation; M16.12 Unilateral primary osteoarthritis, left hip
CPT/HCPCS: 36415; 73502; 80061; 80076; 82306; 83036; 84443; 85027

== ENCOUNTER 2021-05-12 14:50 | Emergency (ER) | payer OTHER, SELFPAY ==
--- NOTE | ~2021-05-12 | CT_ITS ---
EXAMINATION: CT HEAD WITHOUT CONTRAST CLINICAL INFORMATION: Headache and dizziness COMPARISON: Previous head CT February 2021 TECHNIQUE: Contiguous axial imaging was performed from the skull base to vertex without intravenous administration of contrast. This CT examination was performed using dose optimization techniques as appropriate, variously including the following: *Automated exposure control *Adjustment of mA and/or kV according to patient size (this includes techniques or standardized protocols for targeted exams where dose is matched to indication/reason for exam; i.e. extremities or head) *Use of iterative reconstruction technique DLP: 793 mGy-cm FINDINGS: There is no evidence of an extra-axial collection. There is no evidence of intra-axial or extra-axial hemorrhage. There is age-related prominence of the ventricles and extra-axial CSF spaces. There is mild nonspecific periventricular white matter disease. No mass, mass effect or infarct is seen. Review of bone windows is normal. No skull fracture is seen. Visualized paranasal sinuses, mastoid air cells and middle ears are clear. CT/CT head/brain wo con IMPRESSION: No acute intracranial pathology.
--- NOTE | ~2021-05-12 | XR_ITS ---
EXAMINATION: XR CHEST CLINICAL INFORMATION: Shortness of breath COMPARISON: 03/05/2019 TECHNIQUE: Frontal view of the chest was obtained. FINDINGS: The cardiomediastinal silhouette is stable. No vascular congestion or edema. The lungs are mildly hypoexpanded. No consolidation. There is a small left pleural effusion. No pneumothorax. There is a possible nondisplaced fracture of the left there is a nondisplaced fracture of the left seventh rib. XR/XR chest 1V IMPRESSION: Question nondisplaced fracture of the left seventh rib and small left pleural effusion. No pneumothorax.
[2021-05-12 14:53] VITALS: BP 129/83; PULSE 94; RESP 19; TEMP 36.8; O2SAT 97; BMI 39.5
--- NOTE | 2021-05-12 15:09 | PC.NURSE ---
Addendum entered by Gabriel Garcia RN 05/12/21 15:22: pt given aspirin by ems during transport to ed, no effect on the reported chest pain. Original Note: pt alert and oriented, vss, he reports 4/10 sharp chest pain that comes and goes. he also reports sob with exertion. pt states that the pain started after he got off the bus and began walking home from probation. he also reports headache/dizziness and general weakness. he reports past history of the same.
--- NOTE | 2021-05-12 15:10 | ED_ITS ---
HPI - Chest Pain General Chief Complaint: Chest Pain Stated Complaint: WEAK,DIZZY,CP X'S 3 HOURS PER EMS Time Seen by Provider: 05/12/21 15:10 Source: patient and EMS Mode of arrival: EMS Limitations: no limitations History of Present Illness HPI narrative: This is a 65-year-old male past medical history significant for hypertension, atrial fibrillation on eliquis, diabetes, GERD presenting to the emergency depar tment with dizziness, chest pain, headache and shortness of breath all for 1 day. Patient tells me this started after he was walking out of court he had been walking for a few minutes and all these symptoms came on suddenly. He tells me the dizziness is described as disequilibrium, he can not catch his balance he feels like he is falling over. Chest pain substernal and nonradiating, he describes as a pressure/discomfort. He tells me he has a generalized headache feels like his typical. And he feels short of breath particularly with exertion. He denies weakness, nausea, vomiting, vision c hanges, neck pain, fevers, chills. MD complaint: chest pain Onset (ago): hour(s) (1) Related Data Home Medications Medication Instructions Recorded Confirmed omeprazole 20 mg capsule,delayed 20 mg PO QAM 12/19/19 05/12/21 release pen needle, diabetic 31 gauge x #1200 ea 12/19/19 11/18/2007/21 cholecalciferol (vitamin D3) 25 25 mcg PO DAILY 10/14/20 05/12/21 mcg (1,000 unit) tablet Previous Rx's Medication Instructions Recorded pen needle, diabetic 29 gauge x #100 ea 12/12/1903/09 (Ultra-Thin II Insulin Pen [place]) metoprolol tartrate 100 mg tablet 100 mg PO BID #180 cap 12/02/20 metformin 1,000 mg tablet 1,000 mg PO BID #180 cap 01/10/21 blood sugar diagnostic #100 ea 01/11/21 insulin glargine 100 unit/mL (3 40 unit (0.4 mL) SUBCUT BEDTIME 02/12/21 mL) subcutaneous pen (Lantus #15 ml Solostar U-100 Insulin) apixaban 5 mg tablet (Eliquis) 5 mg PO BID 90 Days #180 tab 03/03/21 folic acid 1 mg tablet 1 mg PO DAILY #90 tab 03/18/21 pioglitazone 30 mg tablet 30 mg PO DAILY #90 tab 03/18/21 simvastatin 20 mg tablet 20 mg PO QPM #90 cap 04/07/21 levothyroxine 25 mcg tablet 25 mcg PO DAILY #90 tab 04/25/21 (Synthroid) citalopram 10 mg tablet 10 mg PO DAILY #90 tab 05/07/21 Allergies Allergy/AdvReac Type Severity Reaction Status Date / Time No Known Allergies Allergy Unknown unknown Verified 04/24/21 08:09 [NO KNOWN ALLERGIES] Review of Systems Review of Systems: Constitutional : No Weight loss, No Fever, No Chills, No Fatigue, No Malaise ENT/Mouth : No sore throat, No Rhinorrhea Eyes: No Eye Pain, No Swelling, No Redness Cardiovascular : No Chest Pain, No SOB, No Dyspnea on Exertion, No Orthopnea, No Edema, No Palpitations Respiratory : No Cough, No Sputum, No Wheezing Gastrointestinal : No Nausea, No Vomiting, No Diarrhea, No Constipation, No a bdominal Pain, No Hematochezia, No Melena Genitourinary : No Dysuria, No Urinary Frequency, No Hematuria, Musculoskeletal : No joint pain, No Myalgias, No Joint Swelling Skin : No Skin Lesions, No rash Neuro : No Weakness, No Numbness, No Dizziness, No Headache Psych : No Anxiety/Panic, No Depression All other systems reviewed and are negative Yes all other systems are reviewed and are negative [facility] Past Medical History Attestation statement: The following information was validated with the patient. Source: old records reviewed and nursing notes reviewed Medical History AA (alcohol abuse) Anxiety B12 deficiency Benign essential HTN Benign prostatic hyperplasia without lower urinary tract symptoms Body mass index [BMI] 38.0-38.9, adult DM (diabetes mellitus) type II uncontrolled with eye manifestation Fecal incontinence Foot ulcer, left GERD (gastroesophageal reflux disease) Hiatal hernia History of cardioversion Hypercholesterolemia Morbid (severe) obesity due to excess calories On anticoagulant therapy On beta nga at home FLORES (obstructive sleep apnea) Paroxysmal atrial fibrillation Type 2 diabetes mellitus with diabetic autonomic (poly)neuropathy Surgical History Deficient knowledge of leg surgery H/O left inguinal hernia repair History of amputation of toe History of cataract surgery History of esophagogastroduodenoscopy (EGD) History of hip surgery History of surgery History of tonsillectomy Hx of colonoscopy Family History Family History Father No problems noted. Mother Asthma Brother No problems noted. Brother No problems noted. Brother No problems noted. Sister No problems noted. Sister No problems noted. Social History Social History Housing: Apartment Alcohol intake: current Alcohol intake frequency: 3 or more drinks per day Alc ohol type: beer Patient Tobacco Use Status: Never used Tobacco e-Cigarette/Vaping Use: Never Used Second Hand Smoke Exposure: No Substance Use Type: Marijuana Advance Directives: No Advance Directives Information Provided: No service: No Current occupational status: retired Cognitive needs: No Hearing needs: No Vision needs: Yes (Reading Glasses) Physical Exam Vital Signs: Vital Signs: Last Vital Signs Temp 98.7 F 05/12/21 16:40 Pulse 87 05/12/21 16:40 Resp 20 05/12/21 16:40 BP 138/69 05/12/21 16:40 Pulse Ox 95 05/12/21 21:34 BMI result Body Mass Index 39.5 VSS Appearance: Alert.? Oriented X3.? No acute distress.? Head: Normocephalic, atraumatic, no step-offs or deformities Eyes: Pupils equal, round and reactive to light.? ENT: Pharynx normal.? Neck: Normal inspection.? Neck supple.? CVS: Normal heart rate and rhythm.? Pulses normal.? Respiratory: No respiratory distress.?+ diminished breath sounds Abdomen: Soft and nontender.?+ distention Skin: Skin warm and dry.? Normal skin color.? Normal skin turgor.? Extremities: No lower extremity edema.? No calf ttp. 5/5 strength to bilateral upper and lower extremities Back: No midline tenderness, no C-spine tenderness, full range of motion, no CVA tenderness bilaterally Neuro: Oriented X 3.? No motor deficit.? No sensory deficit. CN 2-12 intact Course Reevaluation(s) Reevaluation #1: Patient has a slight leukocytosis, a baseline anemia. Patient's BUN slightly elevated likely secondary to poor p.o. intake. Magnesium low 1.0 will be repleted at this time with IV magnesium. Troponin 4.3. BNP slightly elevated 141. Spoke to patient has some or any tells me that he did have a fall yesterday, he fell and hit his side and maybe his head on a curb. He tells me he was feeling dizzy at that time as well. Time: 17:56 Reevaluation #2: Ambulatory O2 steadily at 95% on room air. X-ray shows small left pleural effusion, and question nondisplaced left 7th rib. Patient has no pain to p alpation of left thorax/ribs. Patient telling me feels much better. She 2nd troponin negative. Unlikely that this is ACS. Unlikely CHF. Head CT with no acute intracranial pathology. Time: 22:05 Reevaluation #3: Patient is refusing to stay for magnesium level, and possible hospitalization if needed. I explained to patient that this could potentially be life- threatening, could cause lethal dysrhythmia as, good decreased quality of life could cause heart attack, stroke and potentially . Patient agrees to leaving against medical advice at this time. Patient tells me he is feeling better and does not feel like he needs to be hospitalized. At this time I do not feel comfortable with patient going home however patient will be leaving against medical advice. Time: 22:17 MDM - Chest Pain MDM Narrative Medical decision making narrative: 1511 65 yo m pmhx hypertension, atrial fibrillation on eliquis, diabetes, GERD presenting to the emergency department with disequilibrium, chest pain, headache and shortness of breath all for 1 day, began while ambulating PE at for diminished breath sounds bilaterally, distended abdomen. Plan at this time labs, imaging, troponin, EKG, UA. Medical Records Data Attestation: I reviewed the patient's medical records. Lab Data Attestation: I reviewed the patient's lab results. Result diagrams: 05/12/21 16:39 05/12/21 19:48 Labs: Lab Results 05/12/21 05/12/21 05/12/21 Range/Units 16:39 16:39 16:39 WBC 11.0 H (4.8-10.8) X10*3/uL RBC 4.13 L (4.60-5.80) X10*6/uL Hgb 12.5 L (14.0-18.0) g/dl Hct 38.5 L (42.0-52.0) % MCV 93.2 (80.0-98.0) fL MCH 30.3 (27.0-33.0) pg MCHC 32.5 (31.0-36.0) g/dl RDW 13.2 (11.0-16.0) % Plt Count 195 (160-400) X10*3/uL MPV 10.6 (9.4-12.4) fL Immature Gran % (Auto) 0.8 H (0.0-0.4) % Neut % (Auto) 65.2 (45-73) % Lymph % (Auto) 22.4 (20-40) % [place] % (Auto) 10.0 (2-11) % Eos % (Auto) 1.3 (0-4) % Baso % (Auto) 0.3 (0-2) % Lymph # (Auto) 2.5 (1.2-4.9) X10*3/uL [place] # (Auto) 1.1 (0.1-1.2) X10*3/uL Eos # (Auto) 0.1 (0.0-0.4) X10*3/uL Baso # (Auto) 0.0 (0.0-0.2) X10*3/uL Abs Immat Gran (auto) 0.09 H (0.00-0.03) X10*3/uL Absolute Neuts (auto) 7.2 (2.0-8.3) x10*3/uL Absolute Nucleated RBC 0.000 (0.0-0.012) X10*3/uL Nucleated RBC % (auto) 0.0 (0.0-0.2) /100WBC Sodium 137 (135-145) mmol/L Potassium 4.2 D (3.3-5.1) mmol/L Chloride 98 (96-108) mmol/L Carbon Dioxide 31 H (22-29) mmol/L Anion Gap 12 (12-20) BUN 22 H (9-16) mg/dL Creatinine 1.14 (0.5-1.4) mg/dL Estim Creat Clear Calc 82.7 Estimated GFR > 60 POC Glucose (60-115) mg/dL Random Glucose 123 H (60-115) mg/dL Calcium 9.0 (8.4-10.2) mg/dL Magnesium 1.0 L* (1.6-2.6) mg/dL Total Bilirubin 0.6 (0.0-1.0) mg/dL AST 18 (5-37) U/L ALT 14 (0-40) U/L Alkaline Phosphatase 51 (39-117) U/L Troponin I High Sens 4.3 (<3.5-35.0) ng/L B-Natriuretic Peptide (<100) pg/mL Total Protein 6.7 (6.5-8.0) g/dL Albumin 3.9 (3.5-5.0) g/dL Urine Color Urine Appearance Urine pH (5.0-8.0) Ur Specific [place] (1.005-1.025) Urine Protein (NEG-TRACE) MG/DL Urine Glucose (UA) (NEG) MG/DL Urine Ketones (NEG) MG/DL Urine Blood (NEG) Urine Nitrite (NEG) Ur Leukocyte Esterase (NEG) Urine RBC (0) /HPF Urine WBC (0-4) /HPF Ur Squamous Epith Cells /LPF Urine Bacteria /LPF Urine Opiates Screen (Not Detect) Urine Fentanyl Screen (Not Detect) Ur Barbiturates Screen (Not Detect) Ur Phencyclidine Scrn (Not Detect) Ur Amphetamines Screen (Not Detect) U Benzodiazepines Scrn (Not Detect) Urine Cocaine Screen (Not Detect) U Marijuana (THC) Screen (Not Detect) Ethyl Alcohol mg/dL COVID-19 (RONNI) (Negative) COVID-19 Clin Com 05/12/21 05/12/21 05/12/21 Range/Units 16:39 16:39 16:39 WBC (4.8-10.8) X10*3/uL RBC (4.60-5.80) X10*6/uL Hgb (14.0-18.0) g/dl Hct (42.0-52.0) % MCV (80.0-98.0) fL MCH (27.0-33.0) pg MCHC (31.0-36.0) g/dl RDW (11.0-16.0) % Plt Count (160-400) X10*3/uL MPV (9.4-12.4) fL Immature Gran % (Auto) (0.0-0.4) % Neut % (Auto) (45-73) % Lymph % (Auto) (20-40) % [place] % (Auto) (2-11) % Eos % (Auto) (0-4) % Baso % (Auto) (0-2) % Lymph # (Auto) (1.2-4.9) X10*3/uL [place] # (Auto) (0.1-1.2) X10*3/uL Eos # (Auto) (0.0-0.4) X10*3/uL Baso # (Auto) (0.0-0.2) X10*3/uL Abs Immat Gran (auto) (0.00-0.03) X10*3/uL Absolute Neuts (auto) (2.0-8.3) x10*3/uL Absolute Nucleated RBC (0.0-0.012) X10*3/uL Nucleated RBC % (auto) (0.0-0.2) /100WBC Sodium (135-145) mmol/L Potassium (3.3-5.1) mmol/L Chloride (96-108) mmol/L Carbon Dioxide (22-29) mmol/L Anion Gap (12-20) BUN (9-16) mg/dL Creatinine (0.5-1.4) mg/dL Estim Creat Clear Calc Estimated GFR POC Glucose (60-115) mg/dL Random Glucose (60-115) mg/dL Calcium (8.4-10.2) mg/dL Magnesium (1.6-2.6) mg/dL Total Bilirubin (0.0-1.0) mg/dL AST (5-37) U/L ALT (0-40) U/L Alkaline Phosphatase (39-117) U/L Troponin I High Sens (<3.5-35.0) ng/L B-Natriuretic Peptide 141 H (<100) pg/mL Total Protein (6.5-8.0) g/dL Albumin (3.5-5.0) g/dL Urine Color Urine Appearance Urine pH (5.0-8.0) Ur Specific [place] (1.005-1.025) Urine Protein (NEG-TRACE) MG/DL Urine Glucose (UA) (NEG) MG/DL Urine Ketones (NEG) MG/DL Urine Blood (NEG) Urine Nitrite (NEG) Ur Leukocyte Esterase (NEG) Urine RBC (0) /HPF Urine WBC (0-4) /HPF Ur Squamous Epith Cells /LPF Urine Bacteria /LPF Urine Opiates Screen (Not Detect) Urine Fentanyl Screen (Not Detect) Ur Barbiturates Screen (Not Detect) Ur Phencyclidine Scrn (Not Detect) Ur Amphetamines Screen (Not Detect) U Benzodiazepines Scrn (Not Detect) Urine Cocaine Screen (Not Detect) U Marijuana (THC) Screen (Not Detect) Ethyl Alcohol < 10 mg/dL COVID-19 (RONNI) Negative (Negative) COVID-19 Clin Com See Note 05/12/21 05/12/21 05/12/21 Range/Units 18:23 19:48 19:48 WBC (4.8-10.8) X10*3/uL RBC (4.60-5.80) X10*6/uL Hgb (14.0-18.0) g/dl Hct (42.0-52.0) % MCV (80.0-98.0) fL MCH (27.0-33.0) pg MCHC (31.0-36.0) g/dl RDW (11.0-16.0) % Plt Count (160-400) X10*3/uL MPV (9.4-12.4) fL Immature Gran % (Auto) (0.0-0.4) % Neut % (Auto) (45-73) % Lymph % (Auto) (20-40) % [place] % (Auto) (2-11) % Eos % (Auto) (0-4) % Baso % (Auto) (0-2) % Lymph # (Auto) (1.2-4.9) X10*3/uL [place] # (Auto) (0.1-1.2) X10*3/uL Eos # (Auto) (0.0-0.4) X10*3/uL Baso # (Auto) (0.0-0.2) X10*3/uL Abs Immat Gran (auto) (0.00-0.03) X10*3/uL Absolute Neuts (auto) (2.0-8.3) x10*3/uL Absolute Nucleated RBC (0.0-0.012) X10*3/uL Nucleated RBC % (auto) (0.0-0.2) /100WBC Sodium 137 (135-145) mmol/L Potassium 3.8 (3.3-5.1) mmol/L Chloride 98 (96-108) mmol/L Carbon Dioxide 30 H (22-29) mmol/L Anion Gap 13 (12-20) BUN 21 H (9-16) mg/dL Creatinine 1.22 (0.5-1.4) mg/dL Estim Creat Clear Calc 77.3 Estimated GFR 60 POC Glucose 94 (60-115) mg/dL Random Glucose 195 H D (60-115) mg/dL Calcium 8.8 (8.4-10.2) mg/dL Magnesium (1.6-2.6) mg/dL Total Bilirubin (0.0-1.0) mg/dL AST (5-37) U/L ALT (0-40) U/L Alkaline Phosphatase (39-117) U/L Troponin I High Sens 4.8 (<3.5-35.0) ng/L B-Natriuretic Peptide (<100) pg/mL Total Protein (6.5-8.0) g/dL Albumin (3.5-5.0) g/dL Urine Color Urine Appearance Urine pH (5.0-8.0) Ur Specific [place] (1.005-1.025) Urine Protein (NEG-TRACE) MG/DL Urine Glucose (UA) (NEG) MG/DL Urine Ketones (NEG) MG/DL Urine Blood (NEG) Urine Nitrite (NEG) Ur Leukocyte Esterase (NEG) Urine RBC (0) /HPF Urine WBC (0-4) /HPF Ur Squamous Epith Cells /LPF Urine Bacteria /LPF Urine Opiates Screen (Not Detect) Urine Fentanyl Screen (Not Detect) Ur Barbiturates Screen (Not Detect) Ur Phencyclidine Scrn (Not Detect) Ur Amphetamines Screen (Not Detect) U Benzodiazepines Scrn (Not Detect) Urine Cocaine Screen (Not Detect) U Marijuana (THC) Screen (Not Detect) Ethyl Alcohol mg/dL COVID-19 (RONNI) (Negative) COVID-19 Clin Com 05/12/21 05/12/21 Range/Units 19:48 19:48 WBC (4.8-10.8) X10*3/uL RBC (4.60-5.80) X10*6/uL Hgb (14.0-18.0) g/dl Hct (42.0-52.0) % MCV (80.0-98.0) fL MCH (27.0-33.0) pg MCHC (31.0-36.0) g/dl RDW (11.0-16.0) % Plt Count (160-400) X10*3/uL MPV (9.4-12.4) fL Immature Gran % (Auto) (0.0-0.4) % Neut % (Auto) (45-73) % Lymph % (Auto) (20-40) % [place] % (Auto) (2-11) % Eos % (Auto) (0-4) % Baso % (Auto) (0-2) % Lymph # (Auto) (1.2-4.9) X10*3/uL [place] # (Auto) (0.1-1.2) X10*3/uL Eos # (Auto) (0.0-0.4) X10*3/uL Baso # (Auto) (0.0-0.2) X10*3/uL Abs Immat Gran (auto) (0.00-0.03) X10*3/uL Absolute Neuts (auto) (2.0-8.3) x10*3/uL Absolute Nucleated RBC (0.0-0.012) X10*3/uL Nucleated RBC % (auto) (0.0-0.2) /100WBC Sodium (135-145) mmol/L Potassium (3.3-5.1) mmol/L Chloride (96-108) mmol/L Carbon Dioxide (22-29) mmol/L Anion Gap (12-20) BUN (9-16) mg/dL Creatinine (0.5-1.4) mg/dL Estim Creat Clear Calc Estimated GFR POC Glucose (60-115) mg/dL Random Glucose (60-115) mg/dL Calcium (8.4-10.2) mg/dL Magnesium (1.6-2.6) mg/dL Total Bilirubin (0.0-1.0) mg/dL AST (5-37) U/L ALT (0-40) U/L Alkaline Phosphatase (39-117) U/L Troponin I High Sens (<3.5-35.0) ng/L B-Natriuretic Peptide (<100) pg/mL Total Protein (6.5-8.0) g/dL Albumin (3.5-5.0) g/dL Urine Color STRAW Urine Appearance CLEAR Urine pH 5.5 (5.0-8.0) Ur Specific [place] 1.010 (1.005-1.025) Urine Protein NEG (NEG-TRACE) MG/DL Urine Glucose (UA) NEG (NEG) MG/DL Urine Ketones NEG (NEG) MG/DL Urine Blood TRACE (NEG) Urine Nitrite NEG (NEG) Ur Leukocyte Esterase NEG (NEG) Urine RBC 0-2 (0) /HPF Urine WBC 0 (0-4) /HPF Ur Squamous Epith Cells TRACE /LPF Urine Bacteria NONE /LPF Urine Opiates Screen Not Detected (Not Detect) Urine Fentanyl Screen Not Detected (Not Detect) Ur Barbiturates Screen Not Detected (Not Detect) Ur Phencyclidine Scrn Not Detected (Not Detect) Ur Amphetamines Screen Not Detected (Not Detect) U Benzodiazepines Scrn Not Detected (Not Detect) Urine Cocaine Screen Not Detected (Not Detect) U Marijuana (THC) Screen Not Detected (Not Detect) Ethyl Alcohol mg/dL COVID-19 (RONNI) (Negative) COVID-19 Clin Com ECG Data ECG #1: Attestation: I personally reviewed and interpreted this ECG as follows: ECG interpretation date: 05/12/21 ECG interpretation time: 17:44 Prior ECG tracings: available for review Interpretation: Ventricular rate of 90, PA varies, QRS normal, QT/QTC normal. EKG shows atrial fibrillation. No significant changes when compared to EKG from February 2021. No signs of acute ischemia. Critical Care Time Critical Care Time Critical Care Time: No Discharge Plan Discharge Clinical Impression: Hypomagnesemia, Chest pain, Dizziness, Headache, Fall, Mild shortness of breath, Left against medical advice Patient Disposition: Left Against Medical Advice Instructions: Chest Pain (DC), Acute Headache (DC), Hypomagnesemia (ED), Dizziness (ED), Fall Prevention (ED) Additional Instructions: Take your medications as prescribed. If you were prescribed antibiotics today, it is important that you take your medication to their entirety, do not skip any doses, do not finish them early. Follow-up with your primary care provider this week. Follow-up with Cardiology if symptoms do not improve within a week. Return to the emergency department with new or worsening symptoms. Such as fevers, chills, chest pain, shortness of breath, nausea, vomiting, dizziness, headache, vision changes, lethargy In case of emergency call 911 You decided to leave against medical advice. Risks include decreased quality of life, worsening pain, infection/sepsis, heart attack, stroke, . If you change your mind and want to come back for re-evaluation I highly recommend this. Prescriptions: No Action (DME) pen needle, diabetic [Ultra-Thin II Ins Pen [place]] 29 gauge x 1/2 needle See Rx Instructions .ROUTE .MEDSUPPLY Qty: 100 1RF Rx Instructions: 1 per day metoprolol tartrate 100 mg tablet 100 mg PO BID Qty: 180 1RF metformin 1,000 mg tablet 1,000 mg PO BID Qty: 180 1RF (DME) blood sugar diagnostic Strip See Rx Instructions ea .ROUTE TID Qty: 100 6RF Rx Instructions: Test 3 times daily Lantus Solostar U-100 Insulin 100 unit/mL (3 mL) insulin pen 40 unit subcut BEDTIME Qty: 15 1RF Eliquis 5 mg tablet 5 mg PO BID 90 Days Qty: 180 0RF Hold Instructions: Doctor's Order Rx Instructions: Must make an appt for refills folic acid 1 mg tablet 1 mg PO DAILY Qty: 90 1RF pioglitazone 30 mg tablet 30 mg PO DAILY Qty: 90 1RF simvastatin 20 mg tablet 20 mg PO QPM Qty: 90 1RF levothyroxine [Synthroid] 25 mcg tablet 25 mcg PO DAILY Qty: 90 0RF citalopram 10 mg tablet 10 mg PO DAILY Qty: 90 1RF cholecalciferol (vitamin D3) 25 mcg (1,000 unit) tablet 25 mcg PO DAILY 0RF omeprazole 20 mg capsule,delayed release(DR/EC) 20 mg PO QAM 0RF (DME) pen needle, diabetic 31 gauge x 5/16 needle See Rx Instructions ea subcut DAILY Qty: 1200 0RF Rx Instructions: As directed Referrals: Tomi Redman MD [Primary Care Provider] - 2 days Stand Alone Forms: Against Medical Advice
--- NOTE | 2021-05-12 15:11 | ECG_ITS ---
Test Reason : CHEST PAIN Blood Pressure : / mmHG Vent. Rate : 090 BPM Atrial Rate : 000 BPM P-R Int : 000 ms QRS Dur : 078 ms QT Int : 366 ms P-R-T Axes : 000 026 007 degrees QTc Int : 447 ms Atrial fibrillation Abnormal ECG When compared with ECG of 01-MAR-2021 06:30, No significant change was found Referred By: Joce Beck Electronically Signed By:TAVON DUQUE MD
[2021-05-12 16:40] VITALS: BP 138/69; PULSE 87; RESP 20; TEMP 37.1; O2SAT 95
[2021-05-12 16:45] LABS: MANUAL DIFF FLAG NO
[2021-05-12 16:56] LABS: Basophils Percent Auto 0.3 % (0-2); Eosinophils Absolute Auto 0.1 X10*3/uL (0.0-0.4); Eosinophils Percent Auto 1.3 % (0-4); Hematocrit 38.5 % (42.0-52.0); Hemoglobin 12.5 g/dl (14.0-18.0); Imm Gran Abs Auto 0.09 X10*3/uL (0.00-0.03); Imm Gran Pct Auto 0.8 % (0.0-0.4); Lymphocytes Absolute Auto 2.5 X10*3/uL (1.2-4.9); Lymphocytes Percent Auto 22.4 % (20-40); Mean Corpuscular HGB Conc 32.5 g/dl (31.0-36.0); Mean Corpuscular Hemoglobin 30.3 pg (27.0-33.0); Mean Corpuscular Volume 93.2 fL (80.0-98.0); Mean Platelet Volume 10.6 fL (9.4-12.4); Monocytes Absolute Auto 1.1 X10*3/uL (0.1-1.2); Neutrophils Absolute Auto 7.2 x10*3/uL (2.0-8.3); Neutrophils Percent Auto 65.2 % (45-73); Platelet Count 195 X10*3/uL (160-400); Red Blood Count 4.13 X10*6/uL (4.60-5.80); Red Cell Distribution Width 13.2 % (11.0-16.0)
[2021-05-12 16:58] LABS: Ethanol < 10 mg/dL
[2021-05-12 17:02] LABS: COVID-19 Test Negative (Negative); IDNOW Serial# 16C4AD1C
[2021-05-12 17:07] LABS: Alanine Aminotransferase 14 U/L (0-40); Albumin Level 3.9 g/dL (3.5-5.0); Alkaline Phosphatase 51 U/L (39-117); Anion Gap 12 (12-20); Aspartate Amino Transferase 18 U/L (5-37); Bilirubin Total 0.6 mg/dL (0.0-1.0); Blood Urea Nitrogen 22 mg/dL (9-16); Carbon Dioxide 31 mmol/L (22-29); Chloride 98 mmol/L (96-108); Creatinine Clr Calc Pharmacy 82.7; Estimated Glomerular Filt Rate > 60; Glucose Random 123 mg/dL (60-115); Potassium 4.2 mmol/L (3.3-5.1); Sodium 137 mmol/L (135-145); Total Protein 6.7 g/dL (6.5-8.0); Troponin-I High Sensitivity 4.3 ng/L (<3.5-35.0)
[2021-05-12 17:08] LABS: B Type Natriuretic Peptide 141 pg/mL (<100)
[2021-05-12] MEDS: Magnesium Sulfate/H2O 2 GM/50 ML PIGGYBACK IV (18:00)
--- NOTE | 2021-05-12 18:14 | PC.NURSE ---
iv med infusing as documented. vss, denies pain. no apparent distress noted, pt resting quietly.
[2021-05-12 18:31] LABS: Glucose, Whole Blood 94 mg/dL (60-115)
--- NOTE | 2021-05-12 18:43 | PC.NURSE ---
poc 94. pt given meal. iv med running as documented.
--- NOTE | 2021-05-12 19:55 | PC.NURSE ---
pt medicated as per emar. Mag infused w/o difficulty. Repeat Troponin drawn to lab. pt denies any complaints will continue to monitor pt. Pt remains alert, respirations easy, n/l. skin w/d.
[2021-05-12 19:56] LABS: Appearance Urine CLEAR; Color Urine STRAW; Glucose Urine UA NEG (NEG); Leukocyte Esterase Urine NEG (NEG); Nitrite Urine NEG (NEG); PH 5.5 (5.0-8.0); UACC Culture Trigger NO; Urine Blood TRACE (NEG); Urine Ketones NEG (NEG); Urine Protein NEG (NEG-TRACE)
[2021-05-12 20:07] LABS: Anion Gap 13 (12-20); Blood Urea Nitrogen 21 mg/dL (9-16); Calcium 8.8 mg/dL (8.4-10.2); Carbon Dioxide 30 mmol/L (22-29); Chloride 98 mmol/L (96-108); Creatinine Clr Calc Pharmacy 77.3; Estimated Glomerular Filt Rate 60; Glucose Random 195 mg/dL (60-115); Potassium 3.8 mmol/L (3.3-5.1); Sodium 137 mmol/L (135-145)
[2021-05-12 20:09] LABS: RBC Urine 0-2 /HPF (0); Squamous Epithelial Cell Urine TRACE /LPF; WBC Urine 0 /HPF (0-4)
[2021-05-12 20:13] LABS: Amphetamine Screen Urine Not Detected (Not Detect); Barbiturates, Urine Not Detected (Not Detect); Benzodiazepines Screen Urine Not Detected (Not Detect); Cannabinoid Screen Urine Not Detected (Not Detect); Cocaine Screen Urine Not Detected (Not Detect); Fentanyl, urine Not Detected (Not Detect); Opiate Screen Urine Not Detected (Not Detect); Phencyclidine Screen Urine Not Detected (Not Detect)
[2021-05-12 20:15] LABS: Troponin-I High Sensitivity 4.8 ng/L (<3.5-35.0)
[2021-05-12 21:34] VITALS: O2SAT 95
[2021-05-12 22:23] LABS: Magnesium 1.6 mg/dL (1.6-2.6)
== END 2021-05-12 22:27 | disposition left against medical advice (07) ==
PROVIDERS: Physician Assistant; Emergency Provider Emergency Medicine; PCP Internal Medicine
DX: R07.9 Chest pain, unspecified (principal); E83.42 Hypomagnesemia; R42 Dizziness and giddiness; R51.9 Headache, unspecified; R06.02 Shortness of breath; Z91.81 History of falling; Z20.822 Contact with and (suspected) exposure to COVID-19; I10 Essential (primary) hypertension; I48.92 Unspecified atrial flutter; I48.0 Paroxysmal atrial fibrillation; E11.9 Type 2 diabetes mellitus without complications; Z79.4 Long term (current) use of insulin; Z79.01 Long term (current) use of anticoagulants; Z79.02 Long term (current) use of antithrombotics/antiplatelets; Z79.899 Other long term (current) drug therapy
CPT/HCPCS: 36415; 70450; 71045; 80048; 80053; 80307; 81001; 82077; 82947; 83735; 83880; 84484; 85025; 87635; 93005; 96365; 96366; 99284; 99285; J3475

== ENCOUNTER 2021-07-31 11:30 | Emergency (ER) | payer OTHER, SELFPAY ==
--- NOTE | ~2021-07-31 | MR_ITS ---
EXAMINATION: MR BRAIN WITHOUT CONTRAST CLINICAL INFORMATION: Mental status change. COMPARISON: Head CT 07/31/2021. TECHNIQUE: Limited sequence brain MRI utilizing axial diffusion axial FLAIR was performed. Some diagnostic information was obtained. MR/MR head/brain wo con FINDINGS/IMPRESSION: There is no acute infarction on the diffusion sequence. On the FLAIR acquisition there are patchy foci of hyperintensity most likely representing changes of chronic microangiopathy. There is no mass effect or midline shift. There are bilateral mastoid effusions and mild paranasal sinus mucosal thickening.
--- NOTE | ~2021-07-31 | XR_ITS ---
EXAMINATION: XR CHEST CLINICAL INFORMATION: Difficulty breathing COMPARISON: 05/12/2021 TECHNIQUE: Frontal view of the chest was obtained. FINDINGS: Poor inspiratory effort. There is minor atelectasis at the lung bases. Lungs otherwise are grossly clear. Heart size borderline with normal caliber pulmonary vessels. XR/XR chest 1V IMPRESSION: No active disease. When clinically feasible, a follow-up PA and lateral view would be helpful to better evaluate the lung bases.
--- NOTE | ~2021-07-31 | CT_ITS ---
EXAMINATION: CT HEAD WITHOUT CONTRAST (STROKE PROTOCOL) CLINICAL INFORMATION: Stroke protocol. Confusion COMPARISON: 05/12/2021 TECHNIQUE: Contiguous axial imaging was performed from the skull base to vertex without intravenous administration of contrast. This CT examination was performed using dose optimization techniques as appropriate, variously including the following: *Automated exposure control *Adjustment of mA and/or kV according to patient size (this includes techniques or standardized protocols for targeted exams where dose is matched to indication/reason for exam; i.e. extremities or head) *Use of iterative reconstruction technique DLP: 812 mGy-cm FINDINGS: No intra or extra-axial fluid collection, hemorrhage, mass, or mass effect. There is prominence to the sulci and ventricles with moderate deep white matter gliosis. Calvarium is intact. No change from the prior exam. CT/CT head for stroke IMPRESSION: No acute intracranial pathology. This critical result was discussed with the emergency room physician Dr. Hood at 11:57 AM hours on 07/31/2021. It was ascertained that the content and urgency of the report was understood at the time of direct communication.
[2021-07-31 11:36] VITALS: BP 110/72; PULSE 98; RESP 18; TEMP 37.1; O2SAT 98; BMI 39.7
[2021-07-31 11:39] LABS: Glucose, Whole Blood 169 mg/dL (60-115)
--- NOTE | 2021-07-31 11:39 | ECG_ITS ---
Test Reason : stroke Blood Pressure : / mmHG Vent. Rate : 111 BPM Atrial Rate : 000 BPM P-R Int : 000 ms QRS Dur : 084 ms QT Int : 344 ms P-R-T Axes : 000 012 007 degrees QTc Int : 467 ms Atrial fibrillation with rapid ventricular response with premature ventricular or aberrantly conducted complexes Abnormal ECG When compared with ECG of 12-MAY-2021 16:42, No significant change was found Referred By: Yunior Hood Electronically Signed By:Tom Carpenter
[2021-07-31 11:40] LABS: Prothrombin Time Whole Bld POC 13.4 sec (11.1-13.5); ~PT, ~INR - Anti Coag Clinic 1.1 (0.9-1.1)
--- NOTE | 2021-07-31 11:44 | ED_ITS ---
HPI - Neuro Symptoms/Deficit General Chief Complaint: Stroke Stated Complaint: stroke symptoms Time Seen by Provider: 07/31/21 11:38 Source: patient and family ( sister) Mode of arrival: ambulatory History of Present Illness HPI Narrative: 66-year-old male came in by his sister for evaluation of acute confusion and change mental status. Patient with history of DM on insulin, atrial fibrillation on Eliquis patient woke up this morning in normal status then sister started to notice around 08:00 the patient is confused and disoriented, sister drove the patient to the ED while in the waiting room patient noticed by triage nurse patient is confused, no focal neurological findings but noted to be pale symptoms improved as patient in the ED, initial blood sugar was 160, primary survey exam showed no acute focal neurological deficit. Patient declined any trauma to his head, complain of a mild headache but no nausea no vomiting. Patient had a long history of alcohol abuse patient quit drinking about 2 months ago, no known liver disease Or cirrhosis. Related Data Home Medications Medication Instructions Recorded Confirmed omeprazole 20 mg capsule,delayed 20 mg PO QAM 12/19/19 07/31/21 release pen needle, diabetic 31 gauge x #1200 ea 12/19/19 11/18/2007/21 cholecalciferol (vitamin D3) 25 25 mcg PO DAILY 10/14/20 07/31/21 mcg (1,000 unit) tablet Previous Rx's Medication Instructions Recorded pen needle, diabetic 29 gauge x #100 ea 12/12/1903/09 (Ultra-Thin II Insulin Pen [place]) blood sugar diagnostic #100 ea 01/11/21 folic acid 1 mg tablet 1 mg PO DAILY #90 tab 03/18/21 pioglitazone 30 mg tablet 30 mg PO DAILY #90 tab 03/18/21 simvastatin 20 mg tablet 20 mg PO QPM #90 cap 04/07/21 levothyroxine 25 mcg tablet 25 mcg PO DAILY #90 tab 04/25/21 (Synthroid) citalopram 10 mg tablet 10 mg PO DAILY #90 tab 05/07/21 metoprolol tartrate 100 mg tablet 100 mg PO BID #180 tab 06/16/21 metformin 1,000 mg tablet 1,000 mg PO BID #180 cap 07/16/21 insulin glargine 100 unit/mL (3 40 unit (0.4 mL) SUBCUT BEDTIME 07/25/21 mL) subcutaneous pen (Lantus #15 ml Solostar U-100 Insulin) apixaban 5 mg tablet (Eliquis) 5 mg PO BID 90 Days #180 tab 07/28/21 Allergies Allergy/AdvReac Type Severity Reaction Status Date / Time No Known Allergies Allergy Unknown unknown Verified 07/31/21 11:36 [NO KNOWN ALLERGIES] Review of Systems Review of Systems: All other systems are reviewed and are negative Constitutional: Reports as per HPI and Reports no additional constitutional complaints Eyes: Reports as per HPI and Reports no additional eye complaints Reports system reviewed and no additional complaints, except as documented Cardiovascular: Reports as per HPI and Reports no additional cardiovascular complaints Respiratory: Reports as per HPI and Reports no additional respiratory complaints Gastrointestinal: Reports as per HPI and Reports no additional gastrointestinal complaints Genitourinary: Reports no additional female genitourinary complaints Musculoskeletal: Reports no additional musculoskeletal complaints Skin/Breast: Reports system reviewed and no additional complaints, except as docu Psychiatric: Reports no additional psychiatric complaints Endocrine: Reports no additional endocrine complaints Hematologic/Lymphatic: Reports no additional hematologic/lymphatic complaints Allergic/Immunologic: Reports no additional allergic/immunologic complaints Reports system reviewed and no additional complaints, except as documented and Reports Abnormal speech present [facility] Past Medical History Medical History AA (alcohol abuse) Anxiety B12 deficiency Benign essential HTN Benign prostatic hyperplasia without lower urinary tract symptoms Body mass index [BMI] 38.0-38.9, adult DM (diabetes mellitus) type II uncontrolled with eye manifestation Fecal incontinence Foot ulcer, left GERD (gastroesophageal reflux disease) Hiatal hernia History of cardioversion Hypercholesterolemia Morbid (severe) obesity due to excess calories On anticoagulant therapy On beta nga at home FLORES (obstructive sleep apnea) Paroxysmal atrial fibrillation Type 2 diabetes mellitus with diabetic autonomic (poly)neuropathy Surgical History Deficient knowledge of leg surgery H/O left inguinal hernia repair History of amputation of toe History of cataract surgery History of esophagogastroduodenoscopy (EGD) History of hip surgery History of surgery History of tonsillectomy Hx of colonoscopy Family History Family History Father No problems noted. Mother Asthma Brother No problems noted. Brother No problems noted. Brother No problems noted. Sister No problems noted. Sister No problems noted. Social History Social History Housing: Apartment Alcohol intake: current Alcohol intake frequency: does not drink Alcohol type: beer Patient Tobacco Use Status: Never used Tobacco e-Cigarette/Vaping Use: Never Used Second Hand Smoke Exposure: No Substance Use Type: Marijuana Advance Directives: Yes Advance Directives Information Provided: No Advance Directives on File: No service: No Current occupational status: retired Cognitive needs: No Hearing needs: No Vision needs: Yes (Reading Glasses) Physical Exam Vital Signs: Vital Signs: Last Vital Signs Temp 98.7 F 07/31/21 11:36 Pulse 98 07/31/21 11:36 Resp 18 07/31/21 11:36 BP 110/72 07/31/21 11:36 Pulse Ox 98 07/31/21 11:36 BMI result Body Mass Index 39.7 vital signs have been reviewed as appeared to be correct. Blood pressure normal. Heart rate normal. Respiration rate normal. Temperature normal. Oxygen saturation normal. Appearance: Alert. Oriented X2 ( person and place). No acute distress. Head: Normal external exam. Normocephalic. Atraumatic. No Turcios signs noted. No raccoon eyes noted Eyes: PERRLA. EOMI. Conjunctiva and sclera normal. Eyelids normal. ENT: TM's Normal. Pharynx normal. Uvula midline. Moist mucous membranes. No trismus noted. No drooling noted. No muffled voice noted. Neck: Normal inspection. Neck supple. FROM. No adenopathy. Thyroid Normal. No meningeal signs. No neck mass noted. CVS: Normal heart rate and rhythm. Heart sound normal. No murmurs noted. Pulses normal throughout. Respiratory: No respiratory distress. Painless inspiration. Breath sounds normal. No wheezes/rales/rhonchi noted. Chest nontender. No accessory muscle usage noted or decreased air movement noted. Abdomen: Soft and nontender. Bowel sounds normal in all 4 quadrants. No distention noted. No organomegaly noted. No visible injury noted. Back: No CVA tenderness. Full range of motion noted. Skin: Skin warm and dry. Normal skin color. Normal skin turgor. No rashes/lesions/lacerations noted. Extremities: No lower extremity edema. Extremities exhibit normal range of motion. Extremities nontender. Neuro: Oriented X 2. Cranial nerve exam: II-XII are grossly intact No motor deficit. No sensory deficit. Reflexes normal. Course Course Course Narrative: Assessment and plan. 66-year-old male came in for change mental status and confusion, NIH score is 0, labs are unremarkable, no history of using new medication, CT head was unremarkable, MRI of the brain and UA is pending, case signed out to Dr. Ma for follow-up and reassess the patient. MDM - Neuro Symptoms/Deficit Lab Data Result diagrams: 07/31/21 12:12 07/31/21 12:12 Labs: Lab Results 07/31/21 07/31/21 07/31/21 Range/Units 11:33 11:36 12:12 WBC 11.8 H (4.8-10.8) X10*3/uL RBC 4.76 (4.60-5.80) X10*6/uL Hgb 14.0 (14.0-18.0) g/dl Hct 43.3 (42.0-52.0) % MCV 91.0 (80.0-98.0) fL MCH 29.4 (27.0-33.0) pg MCHC 32.3 (31.0-36.0) g/dl RDW 13.2 (11.0-16.0) % Plt Count 251 D (160-400) X10*3/uL MPV 10.3 (9.4-12.4) fL Immature Gran % (Auto) 0.6 H (0.0-0.4) % Neut % (Auto) 69.7 (45-73) % Lymph % (Auto) 19.2 L (20-40) % Conway % (Auto) 8.1 (2-11) % Eos % (Auto) 2.2 (0-4) % Baso % (Auto) 0.2 (0-2) % Lymph # (Auto) 2.3 (1.2-4.9) X10*3/uL Conway # (Auto) 1.0 (0.1-1.2) X10*3/uL Eos # (Auto) 0.3 (0.0-0.4) X10*3/uL Baso # (Auto) 0.0 (0.0-0.2) X10*3/uL Abs Immat Gran (auto) 0.07 H (0.00-0.03) X10*3/uL Absolute Neuts (auto) 8.3 (2.0-8.3) x10*3/uL Absolute Nucleated RBC 0.000 (0.0-0.012) X10*3/uL Nucleated RBC % (auto) 0.0 (0.0-0.2) /100WBC PT (9.9-13.0) SEC Whole Blood PT 13.4 (11.1-13.5) sec INR (0.9-1.1) Whole Blood INR 1.1 (0.9-1.1) Sodium (135-145) mmol/L Potassium (3.3-5.1) mmol/L Chloride (96-108) mmol/L Carbon Dioxide (22-29) mmol/L Anion Gap (12-20) BUN (9-16) mg/dL Creatinine (0.5-1.4) mg/dL Estim Creat Clear Calc Estimated GFR POC Glucose 169 H (60-115) mg/dL Random Glucose (60-115) mg/dL Lactic Acid (0.5-2.0) mmol/L Calcium (8.4-10.2) mg/dL Total Bilirubin (0.0-1.0) mg/dL Direct Bilirubin (0.0-0.5) mg/dL AST (5-37) U/L ALT (0-40) U/L Alkaline Phosphatase (39-117) U/L Ammonia (13-55) umol/L Troponin I High Sens (<3.5-35.0) ng/L B-Natriuretic Peptide (<100) pg/mL Total Protein (6.5-8.0) g/dL Albumin (3.5-5.0) g/dL Lipase (8-78) U/L Ethyl Alcohol mg/dL Influenza Type A (PCR) (Negative) Influenza Type B (PCR) (Negative) RSV RNA Qual (PCR) (Negative) SARS-CoV-2 RNA (RT-PCR) (Negative) 07/31/21 07/31/21 07/31/21 Range/Units 12:12 12:12 12:13 WBC (4.8-10.8) X10*3/uL RBC (4.60-5.80) X10*6/uL Hgb (14.0-18.0) g/dl Hct (42.0-52.0) % MCV (80.0-98.0) fL MCH (27.0-33.0) pg MCHC (31.0-36.0) g/dl RDW (11.0-16.0) % Plt Count (160-400) X10*3/uL MPV (9.4-12.4) fL Immature Gran % (Auto) (0.0-0.4) % Neut % (Auto) (45-73) % Lymph % (Auto) (20-40) % Conway % (Auto) (2-11) % Eos % (Auto) (0-4) % Baso % (Auto) (0-2) % Lymph # (Auto) (1.2-4.9) X10*3/uL [place] # (Auto) (0.1-1.2) X10*3/uL Eos # (Auto) (0.0-0.4) X10*3/uL Baso # (Auto) (0.0-0.2) X10*3/uL Abs Immat Gran (auto) (0.00-0.03) X10*3/uL Absolute Neuts (auto) (2.0-8.3) x10*3/uL Absolute Nucleated RBC (0.0-0.012) X10*3/uL Nucleated RBC % (auto) (0.0-0.2) /100WBC PT 14.2 H (9.9-13.0) SEC Whole Blood PT (11.1-13.5) sec INR 1.2 H (0.9-1.1) Whole Blood INR (0.9-1.1) Sodium 140 (135-145) mmol/L Potassium 4.0 (3.3-5.1) mmol/L Chloride 100 (96-108) mmol/L Carbon Dioxide 25 (22-29) mmol/L Anion Gap 19 (12-20) BUN 25 H (9-16) mg/dL Creatinine 1.81 H (0.5-1.4) mg/dL Estim Creat Clear Calc 50.0 Estimated GFR 38 POC Glucose (60-115) mg/dL Random Glucose 173 H (60-115) mg/dL Lactic Acid (0.5-2.0) mmol/L Calcium 10.3 H D (8.4-10.2) mg/dL Total Bilirubin 0.7 (0.0-1.0) mg/dL Direct Bilirubin 0.3 (0.0-0.5) mg/dL AST 20 (5-37) U/L ALT 20 (0-40) U/L Alkaline Phosphatase 58 (39-117) U/L Ammonia 23 (13-55) umol/L Troponin I High Sens (<3.5-35.0) ng/L B-Natriuretic Peptide (<100) pg/mL Total Protein 7.3 (6.5-8.0) g/dL Albumin 4.1 (3.5-5.0) g/dL Lipase 28 (8-78) U/L Ethyl Alcohol mg/dL Influenza Type A (PCR) (Negative) Influenza Type B (PCR) (Negative) RSV RNA Qual (PCR) (Negative) SARS-CoV-2 RNA (RT-PCR) (Negative) 07/31/21 07/31/21 07/31/21 Range/Units 12:13 12:14 13:27 WBC (4.8-10.8) X10*3/uL RBC (4.60-5.80) X10*6/uL Hgb (14.0-18.0) g/dl Hct (42.0-52.0) % MCV (80.0-98.0) fL MCH (27.0-33.0) pg MCHC (31.0-36.0) g/dl RDW (11.0-16.0) % Plt Count (160-400) X10*3/uL MPV (9.4-12.4) fL Immature Gran % (Auto) (0.0-0.4) % Neut % (Auto) (45-73) % Lymph % (Auto) (20-40) % Conway % (Auto) (2-11) % Eos % (Auto) (0-4) % Baso % (Auto) (0-2) % Lymph # (Auto) (1.2-4.9) X10*3/uL Conway # (Auto) (0.1-1.2) X10*3/uL Eos # (Auto) (0.0-0.4) X10*3/uL Baso # (Auto) (0.0-0.2) X10*3/uL Abs Immat Gran (auto) (0.00-0.03) X10*3/uL Absolute Neuts (auto) (2.0-8.3) x10*3/uL Absolute Nucleated RBC (0.0-0.012) X10*3/uL Nucleated RBC % (auto) (0.0-0.2) /100WBC PT (9.9-13.0) SEC Whole Blood PT (11.1-13.5) sec INR (0.9-1.1) Whole Blood INR (0.9-1.1) Sodium (135-145) mmol/L Potassium (3.3-5.1) mmol/L Chloride (96-108) mmol/L Carbon Dioxide (22-29) mmol/L Anion Gap (12-20) BUN (9-16) mg/dL Creatinine (0.5-1.4) mg/dL Estim Creat Clear Calc Estimated GFR POC Glucose (60-115) mg/dL Random Glucose (60-115) mg/dL Lactic Acid 2.2 H* (0.5-2.0) mmol/L Calcium (8.4-10.2) mg/dL Total Bilirubin (0.0-1.0) mg/dL Direct Bilirubin (0.0-0.5) mg/dL AST (5-37) U/L ALT (0-40) U/L Alkaline Phosphatase (39-117) U/L Ammonia (13-55) umol/L Troponin I High Sens 5.3 (<3.5-35.0) ng/L B-Natriuretic Peptide 75 (<100) pg/mL Total Protein (6.5-8.0) g/dL Albumin (3.5-5.0) g/dL Lipase (8-78) U/L Ethyl Alcohol < 10 mg/dL Influenza Type A (PCR) (Negative) Influenza Type B (PCR) (Negative) RSV RNA Qual (PCR) (Negative) SARS-CoV-2 RNA (RT-PCR) (Negative) 07/31/21 Range/Units Unknown WBC (4.8-10.8) X10*3/uL RBC (4.60-5.80) X10*6/uL Hgb (14.0-18.0) g/dl Hct (42.0-52.0) % MCV (80.0-98.0) fL MCH (27.0-33.0) pg MCHC (31.0-36.0) g/dl RDW (11.0-16.0) % Plt Count (160-400) X10*3/uL MPV (9.4-12.4) fL Immature Gran % (Auto) (0.0-0.4) % Neut % (Auto) (45-73) % Lymph % (Auto) (20-40) % Conway % (Auto) (2-11) % Eos % (Auto) (0-4) % Baso % (Auto) (0-2) % Lymph # (Auto) (1.2-4.9) X10*3/uL [place] # (Auto) (0.1-1.2) X10*3/uL Eos # (Auto) (0.0-0.4) X10*3/uL Baso # (Auto) (0.0-0.2) X10*3/uL Abs Immat Gran (auto) (0.00-0.03) X10*3/uL Absolute Neuts (auto) (2.0-8.3) x10*3/uL Absolute Nucleated RBC (0.0-0.012) X10*3/uL Nucleated RBC % (auto) (0.0-0.2) /100WBC PT (9.9-13.0) SEC Whole Blood PT (11.1-13.5) sec INR (0.9-1.1) Whole Blood INR (0.9-1.1) Sodium (135-145) mmol/L Potassium (3.3-5.1) mmol/L Chloride (96-108) mmol/L Carbon Dioxide (22-29) mmol/L Anion Gap (12-20) BUN (9-16) mg/dL Creatinine (0.5-1.4) mg/dL Estim Creat Clear Calc Estimated GFR POC Glucose (60-115) mg/dL Random Glucose (60-115) mg/dL Lactic Acid (0.5-2.0) mmol/L Calcium (8.4-10.2) mg/dL Total Bilirubin (0.0-1.0) mg/dL Direct Bilirubin (0.0-0.5) mg/dL AST (5-37) U/L ALT (0-40) U/L Alkaline Phosphatase (39-117) U/L Ammonia (13-55) umol/L Troponin I High Sens (<3.5-35.0) ng/L B-Natriuretic Peptide (<100) pg/mL Total Protein (6.5-8.0) g/dL Albumin (3.5-5.0) g/dL Lipase (8-78) U/L Ethyl Alcohol mg/dL Influenza Type A (PCR) NEGATIVE (Negative) Influenza Type B (PCR) NEGATIVE (Negative) RSV RNA Qual (PCR) NEGATIVE (Negative) SARS-CoV-2 RNA (RT-PCR) NEGATIVE (Negative) Discharge Plan Discharge Clinical Impression: Altered mental status Prescriptions: No Action (DME) pen needle, diabetic [Ultra-Thin II Ins Pen [place]] 29 gauge x 1/2 needle See Rx Instructions .ROUTE .MEDSUPPLY Qty: 100 1RF Rx Instructions: 1 per day (DME) blood sugar diagnostic Strip See Rx Instructions ea .ROUTE TID Qty: 100 6RF Rx Instructions: Test 3 times daily folic acid 1 mg tablet 1 mg PO DAILY Qty: 90 1RF pioglitazone 30 mg tablet 30 mg PO DAILY Qty: 90 1RF simvastatin 20 mg tablet 20 mg PO QPM Qty: 90 1RF levothyroxine [Synthroid] 25 mcg tablet 25 mcg PO DAILY Qty: 90 0RF citalopram 10 mg tablet 10 mg PO DAILY Qty: 90 1RF metoprolol tartrate 100 mg tablet 100 mg PO BID Qty: 180 0RF metformin 1,000 mg tablet 1,000 mg PO BID Qty: 180 1RF Lantus Solostar U-100 Insulin 100 unit/mL (3 mL) insulin pen 40 unit subcut BEDTIME Qty: 15 1RF Eliquis 5 mg tablet 5 mg PO BID 90 Days Qty: 180 1RF Hold Instructions: Doctor's Order cholecalciferol (vitamin D3) 25 mcg (1,000 unit) tablet 25 mcg PO DAILY 0RF omeprazole 20 mg capsule,delayed release(DR/EC) 20 mg PO QAM 0RF (DME) pen needle, diabetic 31 gauge x 5/16 needle See Rx Instructions ea subcut DAILY Qty: 1200 0RF Rx Instructions: As directed
[2021-07-31 12:24] LABS: MANUAL DIFF FLAG NO
--- NOTE | 2021-07-31 12:24 | PHA.MEDREC ---
Pharmacy Consult ? Medication Reconciliation Pharmacy has completed the medication reconciliation. Patient is confused. Could not remember or recognize names of medications. Used claim history to complete med rec. Syl RouseD
[2021-07-31 12:26] LABS: Basophils Percent Auto 0.2 % (0-2); Eosinophils Absolute Auto 0.3 X10*3/uL (0.0-0.4); Eosinophils Percent Auto 2.2 % (0-4); Hematocrit 43.3 % (42.0-52.0); Imm Gran Abs Auto 0.07 X10*3/uL (0.00-0.03); Imm Gran Pct Auto 0.6 % (0.0-0.4); Lymphocytes Absolute Auto 2.3 X10*3/uL (1.2-4.9); Lymphocytes Percent Auto 19.2 % (20-40); Mean Corpuscular HGB Conc 32.3 g/dl (31.0-36.0); Mean Corpuscular Hemoglobin 29.4 pg (27.0-33.0); Mean Platelet Volume 10.3 fL (9.4-12.4); Monocytes Percent Auto 8.1 % (2-11); Neutrophils Absolute Auto 8.3 x10*3/uL (2.0-8.3); Neutrophils Percent Auto 69.7 % (45-73); Platelet Count 251 X10*3/uL (160-400); Red Blood Count 4.76 X10*6/uL (4.60-5.80); Red Cell Distribution Width 13.2 % (11.0-16.0); White Blood Count 11.8 X10*3/uL (4.8-10.8)
[2021-07-31 12:32] LABS: INTERNATIONAL NORM RATIO 1.2 (0.9-1.1); Prothrombin Time 14.2 SEC (9.9-13.0)
[2021-07-31 12:41] LABS: Ammonia 23 umol/L (13-55)
[2021-07-31 12:52] LABS: Alanine Aminotransferase 20 U/L (0-40); Albumin Level 4.1 g/dL (3.5-5.0); Alkaline Phosphatase 58 U/L (39-117); Anion Gap 19 (12-20); Aspartate Amino Transferase 20 U/L (5-37); Bilirubin Direct 0.3 mg/dL (0.0-0.5); Bilirubin Total 0.7 mg/dL (0.0-1.0); Blood Urea Nitrogen 25 mg/dL (9-16); Calcium 10.3 mg/dL (8.4-10.2); Carbon Dioxide 25 mmol/L (22-29); Chloride 100 mmol/L (96-108); Estimated Glomerular Filt Rate 38; Glucose Random 173 mg/dL (60-115); Lipase 28 U/L (8-78); Sodium 140 mmol/L (135-145); Total Protein 7.3 g/dL (6.5-8.0)
[2021-07-31 12:55] LABS: B Type Natriuretic Peptide 75 pg/mL (<100); Troponin-I High Sensitivity 5.3 ng/L (<3.5-35.0)
[2021-07-31 12:56] LABS: Lactic Acid 2.2 mmol/L (0.5-2.0)
[2021-07-31 13:39] LABS: Influenza A PCR NEGATIVE (Negative); Influenza B PCR NEGATIVE (Negative); Resp Syncy Virus RNA Qual PCR NEGATIVE (Negative); SARS COV2 PCR INHOUSE NEGATIVE (Negative)
[2021-07-31 13:46] LABS: Ethanol < 10 mg/dL
[2021-07-31 14:22] LABS: Reflex Lactate? Lactic Acid Added
[2021-07-31 16:12] LABS: ~Lactic Acid-LAB USE ONLY 2.2 mmol/L (0.5-2.0)
[2021-07-31] MEDS: 0.9 % Sodium Chloride 1,000 ML 999 ML IVCONT (17:33)
[2021-07-31] MEDS: Metoclopramide HCl 10 MG/2 ML VIAL IVPUSH (17:37)
[2021-07-31] MEDS: Morphine Sulfate 2 MG/ML CARTRIDGE 1 MG IVPUSH (17:38)
[2021-07-31 17:50] LABS: Reflex Lactate? 2 Y
[2021-07-31 18:08] VITALS: BP 146/89; PULSE 103; RESP 18; TEMP 36.9; O2SAT 97
[2021-07-31 20:07] LABS: ~Lactic Acid-LAB USE ONLY 1.1 mmol/L (0.5-2.0)
[2021-07-31 20:14] LABS: Appearance Urine CLEAR; Color Urine YELLOW; Glucose Urine UA 100 MG/DL (NEG); Leukocyte Esterase Urine NEG (NEG); Nitrite Urine NEG (NEG); PH 5.5 (5.0-8.0); Specific Gravity - Urine >= 1.030 (1.005-1.025); UACC Culture Trigger NO; Urine Blood TRACE (NEG); Urine Ketones 40 MG/DL (NEG); Urine Protein TRACE MG/DL (NEG-TRACE)
[2021-07-31 20:26] LABS: Mucus Urine TRACE /LPF; Squamous Epithelial Cell Urine TRACE /LPF; WBC Urine 0 /HPF (0-4)
[2021-07-31 20:27] LABS: Glucose, Whole Blood 114 mg/dL (60-115)
[2021-07-31 20:28] LABS: Amphetamine Screen Urine Not Detected (Not Detect); Barbiturates, Urine Not Detected (Not Detect); Benzodiazepines Screen Urine Not Detected (Not Detect); Cannabinoid Screen Urine Not Detected (Not Detect); Cocaine Screen Urine Not Detected (Not Detect); Fentanyl, urine Not Detected (Not Detect); Opiate Screen Urine POSITIVE (Not Detect); Phencyclidine Screen Urine Not Detected (Not Detect)
--- NOTE | 2021-07-31 20:41 | ED_ITS ---
HPI - Neuro Symptoms/Deficit General Chief Complaint: Stroke Stated Complaint: stroke symptoms Time Seen by Provider: 07/31/21 11:38 Source: patient and family ( sister) Mode of arrival: ambulatory Related Data Home Medications Medication Instructions Recorded Confirmed omeprazole 20 mg capsule,delayed 20 mg PO QAM 12/19/19 07/31/21 release pen needle, diabetic 31 gauge x #1200 ea 12/19/19 11/18/2007/21 cholecalciferol (vitamin D3) 25 25 mcg PO DAILY 10/14/20 07/31/21 mcg (1,000 unit) tablet Previous Rx's Medication Instructions Recorded pen needle, diabetic 29 gauge x #100 ea 12/12/1903/09 (Ultra-Thin II Insulin Pen [place]) blood sugar diagnostic #100 ea 01/11/21 folic acid 1 mg tablet 1 mg PO DAILY #90 tab 03/18/21 pioglitazone 30 mg tablet 30 mg PO DAILY #90 tab 03/18/21 simvastatin 20 mg tablet 20 mg PO QPM #90 cap 04/07/21 citalopram 10 mg tablet 10 mg PO DAILY #90 tab 05/07/21 metoprolol tartrate 100 mg tablet 100 mg PO BID #180 tab 06/16/21 metformin 1,000 mg tablet 1,000 mg PO BID #180 cap 07/16/21 insulin glargine 100 unit/mL (3 40 unit (0.4 mL) SUBCUT BEDTIME 07/25/21 mL) subcutaneous pen (Lantus #15 ml Solostar U-100 Insulin) apixaban 5 mg tablet (Eliquis) 5 mg PO BID 90 Days #180 tab 07/28/21 levothyroxine 25 mcg tablet 25 mcg PO DAILY #90 tab 07/31/21 (Synthroid) Allergies Allergy/AdvReac Type Severity Reaction Status Date / Time No Known Allergies Allergy Unknown unknown Verified 07/31/21 11:36 [NO KNOWN ALLERGIES] PMFSH Past Medical History Medical History AA (alcohol abuse) Anxiety B12 deficiency Benign essential HTN Benign prostatic hyperplasia without lower urinary tract symptoms Body mass index [BMI] 38.0-38.9, adult DM (diabetes mellitus) type II uncontrolled with eye manifestation Fecal incontinence Foot ulcer, left GERD (gastroesophageal reflux disease) Hiatal hernia History of cardioversion Hypercholesterolemia Morbid (severe) obesity due to excess calories On anticoagulant therapy On beta nga at home FLOERS (obstructive sleep apnea) Paroxysmal atrial fibrillation Type 2 diabetes mellitus with diabetic autonomic (poly)neuropathy Surgical History Deficient knowledge of leg surgery H/O left inguinal hernia repair History of amputation of toe History of cataract surgery History of esophagogastroduodenoscopy (EGD) History of hip surgery History of surgery History of tonsillectomy Hx of colonoscopy Family History Family History Father No problems noted. Mother Asthma Brother No problems noted. Brother No problems noted. Brother No problems noted. Sister No problems noted. Sister No problems noted. Social History Social History Housing: Apartment Alcohol intake: current Alcohol intake frequency: does not drink Alcohol type: beer Patient Tobacco Use Status: Never used Tobacco e-Cigarette/Vaping Use: Never Used Second Hand Smoke Exposure: No Substance Use Type: Marijuana Advance Directives: Yes Advance Directives Information Provided: No Advance Directives on File: No service: No Current occupational status: retired Cognitive needs: No Hearing needs: No Vision needs: Yes (Reading Glasses) Physical Exam Vital Signs: Vital Signs: Last Vital Signs Temp 98.4 F 07/31/21 18:08 Pulse 103 H 07/31/21 18:08 Resp 18 07/31/21 18:08 BP 146/89 H 07/31/21 18:08 Pulse Ox 97 07/31/21 18:08 BMI result Body Mass Index 39.7 MDM - Neuro Symptoms/Deficit Lab Data Result diagrams: 07/31/21 12:12 07/31/21 12:12 Labs: Lab Results 07/31/21 07/31/21 07/31/21 Range/Units 11:33 11:36 12:12 WBC 11.8 H (4.8-10.8) X10*3/uL RBC 4.76 (4.60-5.80) X10*6/uL Hgb 14.0 (14.0-18.0) g/dl Hct 43.3 (42.0-52.0) % MCV 91.0 (80.0-98.0) fL MCH 29.4 (27.0-33.0) pg MCHC 32.3 (31.0-36.0) g/dl RDW 13.2 (11.0-16.0) % Plt Count 251 D (160-400) X10*3/uL MPV 10.3 (9.4-12.4) fL Immature Gran % (Auto) 0.6 H (0.0-0.4) % Neut % (Auto) 69.7 (45-73) % Lymph % (Auto) 19.2 L (20-40) % Travis % (Auto) 8.1 (2-11) % Eos % (Auto) 2.2 (0-4) % Baso % (Auto) 0.2 (0-2) % Lymph # (Auto) 2.3 (1.2-4.9) X10*3/uL Travis # (Auto) 1.0 (0.1-1.2) X10*3/uL Eos # (Auto) 0.3 (0.0-0.4) X10*3/uL Baso # (Auto) 0.0 (0.0-0.2) X10*3/uL Abs Immat Gran (auto) 0.07 H (0.00-0.03) X10*3/uL Absolute Neuts (auto) 8.3 (2.0-8.3) x10*3/uL Absolute Nucleated RBC 0.000 (0.0-0.012) X10*3/uL Nucleated RBC % (auto) 0.0 (0.0-0.2) /100WBC PT (9.9-13.0) SEC Whole Blood PT 13.4 (11.1-13.5) sec INR (0.9-1.1) Whole Blood INR 1.1 (0.9-1.1) Sodium (135-145) mmol/L Potassium (3.3-5.1) mmol/L Chloride (96-108) mmol/L Carbon Dioxide (22-29) mmol/L Anion Gap (12-20) BUN (9-16) mg/dL Creatinine (0.5-1.4) mg/dL Estim Creat Clear Calc Estimated GFR POC Glucose 169 H (60-115) mg/dL Random Glucose (60-115) mg/dL Lactic Acid (0.5-2.0) mmol/L Lactic Acid F/U @ 2Hr (0.5-2.0) mmol/L Lactic Acid F/U @ 4Hr (0.5-2.0) mmol/L Calcium (8.4-10.2) mg/dL Total Bilirubin (0.0-1.0) mg/dL Direct Bilirubin (0.0-0.5) mg/dL AST (5-37) U/L ALT (0-40) U/L Alkaline Phosphatase (39-117) U/L Ammonia (13-55) umol/L Troponin I High Sens (<3.5-35.0) ng/L B-Natriuretic Peptide (<100) pg/mL Total Protein (6.5-8.0) g/dL Albumin (3.5-5.0) g/dL Lipase (8-78) U/L Urine Color Urine Appearance Urine pH (5.0-8.0) Ur Specific [place] (1.005-1.025) Urine Protein (NEG-TRACE) MG/DL Urine Glucose (UA) (NEG) MG/DL Urine Ketones (NEG) MG/DL Urine Blood (NEG) Urine Nitrite (NEG) Ur Leukocyte Esterase (NEG) Urine RBC (0) /HPF Urine WBC (0-4) /HPF Ur Squamous Epith Cells /LPF Urine Bacteria /LPF Hyaline Casts /LPF Urine Mucus /LPF Urine Opiates Screen (Not Detect) Urine Fentanyl Screen (Not Detect) Ur Barbiturates Screen (Not Detect) Ur Phencyclidine Scrn (Not Detect) Ur Amphetamines Screen (Not Detect) U Benzodiazepines Scrn (Not Detect) Urine Cocaine Screen (Not Detect) U Marijuana (THC) Screen (Not Detect) Ethyl Alcohol mg/dL Influenza Type A (PCR) (Negative) Influenza Type B (PCR) (Negative) RSV RNA Qual (PCR) (Negative) SARS-CoV-2 RNA (RT-PCR) (Negative) 07/31/21 07/31/21 07/31/21 Range/Units 12:12 12:12 12:13 WBC (4.8-10.8) X10*3/uL RBC (4.60-5.80) X10*6/uL Hgb (14.0-18.0) g/dl Hct (42.0-52.0) % MCV (80.0-98.0) fL MCH (27.0-33.0) pg MCHC (31.0-36.0) g/dl RDW (11.0-16.0) % Plt Count (160-400) X10*3/uL MPV (9.4-12.4) fL Immature Gran % (Auto) (0.0-0.4) % Neut % (Auto) (45-73) % Lymph % (Auto) (20-40) % Travis % (Auto) (2-11) % Eos % (Auto) (0-4) % Baso % (Auto) (0-2) % Lymph # (Auto) (1.2-4.9) X10*3/uL Travis # (Auto) (0.1-1.2) X10*3/uL Eos # (Auto) (0.0-0.4) X10*3/uL Baso # (Auto) (0.0-0.2) X10*3/uL Abs Immat Gran (auto) (0.00-0.03) X10*3/uL Absolute Neuts (auto) (2.0-8.3) x10*3/uL Absolute Nucleated RBC (0.0-0.012) X10*3/uL Nucleated RBC % (auto) (0.0-0.2) /100WBC PT 14.2 H (9.9-13.0) SEC Whole Blood PT (11.1-13.5) sec INR 1.2 H (0.9-1.1) Whole Blood INR (0.9-1.1) Sodium 140 (135-145) mmol/L Potassium 4.0 (3.3-5.1) mmol/L Chloride 100 (96-108) mmol/L Carbon Dioxide 25 (22-29) mmol/L Anion Gap 19 (12-20) BUN 25 H (9-16) mg/dL Creatinine 1.81 H (0.5-1.4) mg/dL Estim Creat Clear Calc 50.0 Estimated GFR 38 POC Glucose (60-115) mg/dL Random Glucose 173 H (60-115) mg/dL Lactic Acid (0.5-2.0) mmol/L Lactic Acid F/U @ 2Hr (0.5-2.0) mmol/L Lactic Acid F/U @ 4Hr (0.5-2.0) mmol/L Calcium 10.3 H D (8.4-10.2) mg/dL Total Bilirubin 0.7 (0.0-1.0) mg/dL Direct Bilirubin 0.3 (0.0-0.5) mg/dL AST 20 (5-37) U/L ALT 20 (0-40) U/L Alkaline Phosphatase 58 (39-117) U/L Ammonia 23 (13-55) umol/L Troponin I High Sens (<3.5-35.0) ng/L B-Natriuretic Peptide (<100) pg/mL Total Protein 7.3 (6.5-8.0) g/dL Albumin 4.1 (3.5-5.0) g/dL Lipase 28 (8-78) U/L Urine Color Urine Appearance Urine pH (5.0-8.0) Ur Specific [place] (1.005-1.025) Urine Protein (NEG-TRACE) MG/DL Urine Glucose (UA) (NEG) MG/DL Urine Ketones (NEG) MG/DL Urine Blood (NEG) Urine Nitrite (NEG) Ur Leukocyte Esterase (NEG) Urine RBC (0) /HPF Urine WBC (0-4) /HPF Ur Squamous Epith Cells /LPF Urine Bacteria /LPF Hyaline Casts /LPF Urine Mucus /LPF Urine Opiates Screen (Not Detect) Urine Fentanyl Screen (Not Detect) Ur Barbiturates Screen (Not Detect) Ur Phencyclidine Scrn (Not Detect) Ur Amphetamines Screen (Not Detect) U Benzodiazepines Scrn (Not Detect) Urine Cocaine Screen (Not Detect) U Marijuana (THC) Screen (Not Detect) Ethyl Alcohol mg/dL Influenza Type A (PCR) (Negative) Influenza Type B (PCR) (Negative) RSV RNA Qual (PCR) (Negative) SARS-CoV-2 RNA (RT-PCR) (Negative) 07/31/21 07/31/21 07/31/21 Range/Units 12:13 12:14 13:27 WBC (4.8-10.8) X10*3/uL RBC (4.60-5.80) X10*6/uL Hgb (14.0-18.0) g/dl Hct (42.0-52.0) % MCV (80.0-98.0) fL MCH (27.0-33.0) pg MCHC (31.0-36.0) g/dl RDW (11.0-16.0) % Plt Count (160-400) X10*3/uL MPV (9.4-12.4) fL Immature Gran % (Auto) (0.0-0.4) % Neut % (Auto) (45-73) % Lymph % (Auto) (20-40) % Travis % (Auto) (2-11) % Eos % (Auto) (0-4) % Baso % (Auto) (0-2) % Lymph # (Auto) (1.2-4.9) X10*3/uL [place] # (Auto) (0.1-1.2) X10*3/uL Eos # (Auto) (0.0-0.4) X10*3/uL Baso # (Auto) (0.0-0.2) X10*3/uL Abs Immat Gran (auto) (0.00-0.03) X10*3/uL Absolute Neuts (auto) (2.0-8.3) x10*3/uL Absolute Nucleated RBC (0.0-0.012) X10*3/uL Nucleated RBC % (auto) (0.0-0.2) /100WBC PT (9.9-13.0) SEC Whole Blood PT (11.1-13.5) sec INR (0.9-1.1) Whole Blood INR (0.9-1.1) Sodium (135-145) mmol/L Potassium (3.3-5.1) mmol/L Chloride (96-108) mmol/L Carbon Dioxide (22-29) mmol/L Anion Gap (12-20) BUN (9-16) mg/dL Creatinine (0.5-1.4) mg/dL Estim Creat Clear Calc Estimated GFR POC Glucose (60-115) mg/dL Random Glucose (60-115) mg/dL Lactic Acid 2.2 H* (0.5-2.0) mmol/L Lactic Acid F/U @ 2Hr (0.5-2.0) mmol/L Lactic Acid F/U @ 4Hr (0.5-2.0) mmol/L Calcium (8.4-10.2) mg/dL Total Bilirubin (0.0-1.0) mg/dL Direct Bilirubin (0.0-0.5) mg/dL AST (5-37) U/L ALT (0-40) U/L Alkaline Phosphatase (39-117) U/L Ammonia (13-55) umol/L Troponin I High Sens 5.3 (<3.5-35.0) ng/L B-Natriuretic Peptide 75 (<100) pg/mL Total Protein (6.5-8.0) g/dL Albumin (3.5-5.0) g/dL Lipase (8-78) U/L Urine Color Urine Appearance Urine pH (5.0-8.0) Ur Specific [place] (1.005-1.025) Urine Protein (NEG-TRACE) MG/DL Urine Glucose (UA) (NEG) MG/DL Urine Ketones (NEG) MG/DL Urine Blood (NEG) Urine Nitrite (NEG) Ur Leukocyte Esterase (NEG) Urine RBC (0) /HPF Urine WBC (0-4) /HPF Ur Squamous Epith Cells /LPF Urine Bacteria /LPF Hyaline Casts /LPF Urine Mucus /LPF Urine Opiates Screen (Not Detect) Urine Fentanyl Screen (Not Detect) Ur Barbiturates Screen (Not Detect) Ur Phencyclidine Scrn (Not Detect) Ur Amphetamines Screen (Not Detect) U Benzodiazepines Scrn (Not Detect) Urine Cocaine Screen (Not Detect) U Marijuana (THC) Screen (Not Detect) Ethyl Alcohol < 10 mg/dL Influenza Type A (PCR) (Negative) Influenza Type B (PCR) (Negative) RSV RNA Qual (PCR) (Negative) SARS-CoV-2 RNA (RT-PCR) (Negative) 07/31/21 07/31/21 07/31/21 Range/Units 15:45 19:52 19:56 WBC (4.8-10.8) X10*3/uL RBC (4.60-5.80) X10*6/uL Hgb (14.0-18.0) g/dl Hct (42.0-52.0) % MCV (80.0-98.0) fL MCH (27.0-33.0) pg MCHC (31.0-36.0) g/dl RDW (11.0-16.0) % Plt Count (160-400) X10*3/uL MPV (9.4-12.4) fL Immature Gran % (Auto) (0.0-0.4) % Neut % (Auto) (45-73) % Lymph % (Auto) (20-40) % Travis % (Auto) (2-11) % Eos % (Auto) (0-4) % Baso % (Auto) (0-2) % Lymph # (Auto) (1.2-4.9) X10*3/uL [place] # (Auto) (0.1-1.2) X10*3/uL Eos # (Auto) (0.0-0.4) X10*3/uL Baso # (Auto) (0.0-0.2) X10*3/uL Abs Immat Gran (auto) (0.00-0.03) X10*3/uL Absolute Neuts (auto) (2.0-8.3) x10*3/uL Absolute Nucleated RBC (0.0-0.012) X10*3/uL Nucleated RBC % (auto) (0.0-0.2) /100WBC PT (9.9-13.0) SEC Whole Blood PT (11.1-13.5) sec INR (0.9-1.1) Whole Blood INR (0.9-1.1) Sodium (135-145) mmol/L Potassium (3.3-5.1) mmol/L Chloride (96-108) mmol/L Carbon Dioxide (22-29) mmol/L Anion Gap (12-20) BUN (9-16) mg/dL Creatinine (0.5-1.4) mg/dL Estim Creat Clear Calc Estimated GFR POC Glucose 114 (60-115) mg/dL Random Glucose (60-115) mg/dL Lactic Acid (0.5-2.0) mmol/L Lactic Acid F/U @ 2Hr 2.2 H* (0.5-2.0) mmol/L Lactic Acid F/U @ 4Hr 1.1 (0.5-2.0) mmol/L Calcium (8.4-10.2) mg/dL Total Bilirubin (0.0-1.0) mg/dL Direct Bilirubin (0.0-0.5) mg/dL AST (5-37) U/L ALT (0-40) U/L Alkaline Phosphatase (39-117) U/L Ammonia (13-55) umol/L Troponin I High Sens (<3.5-35.0) ng/L B-Natriuretic Peptide (<100) pg/mL Total Protein (6.5-8.0) g/dL Albumin (3.5-5.0) g/dL Lipase (8-78) U/L Urine Color Urine Appearance Urine pH (5.0-8.0) Ur Specific [place] (1.005-1.025) Urine Protein (NEG-TRACE) MG/DL Urine Glucose (UA) (NEG) MG/DL Urine Ketones (NEG) MG/DL Urine Blood (NEG) Urine Nitrite (NEG) Ur Leukocyte Esterase (NEG) Urine RBC (0) /HPF Urine WBC (0-4) /HPF Ur Squamous Epith Cells /LPF Urine Bacteria /LPF Hyaline Casts /LPF Urine Mucus /LPF Urine Opiates Screen (Not Detect) Urine Fentanyl Screen (Not Detect) Ur Barbiturates Screen (Not Detect) Ur Phencyclidine Scrn (Not Detect) Ur Amphetamines Screen (Not Detect) U Benzodiazepines Scrn (Not Detect) Urine Cocaine Screen (Not Detect) U Marijuana (THC) Screen (Not Detect) Ethyl Alcohol mg/dL Influenza Type A (PCR) (Negative) Influenza Type B (PCR) (Negative) RSV RNA Qual (PCR) (Negative) SARS-CoV-2 RNA (RT-PCR) (Negative) 07/31/21 07/31/21 07/31/21 Range/Units 20:07 20:07 Unknown WBC (4.8-10.8) X10*3/uL RBC (4.60-5.80) X10*6/uL Hgb (14.0-18.0) g/dl Hct (42.0-52.0) % MCV (80.0-98.0) fL MCH (27.0-33.0) pg MCHC (31.0-36.0) g/dl RDW (11.0-16.0) % Plt Count (160-400) X10*3/uL MPV (9.4-12.4) fL Immature Gran % (Auto) (0.0-0.4) % Neut % (Auto) (45-73) % Lymph % (Auto) (20-40) % Travis % (Auto) (2-11) % Eos % (Auto) (0-4) % Baso % (Auto) (0-2) % Lymph # (Auto) (1.2-4.9) X10*3/uL [place] # (Auto) (0.1-1.2) X10*3/uL Eos # (Auto) (0.0-0.4) X10*3/uL Baso # (Auto) (0.0-0.2) X10*3/uL Abs Immat Gran (auto) (0.00-0.03) X10*3/uL Absolute Neuts (auto) (2.0-8.3) x10*3/uL Absolute Nucleated RBC (0.0-0.012) X10*3/uL Nucleated RBC % (auto) (0.0-0.2) /100WBC PT (9.9-13.0) SEC Whole Blood PT (11.1-13.5) sec INR (0.9-1.1) Whole Blood INR (0.9-1.1) Sodium (135-145) mmol/L Potassium (3.3-5.1) mmol/L Chloride (96-108) mmol/L Carbon Dioxide (22-29) mmol/L Anion Gap (12-20) BUN (9-16) mg/dL Creatinine (0.5-1.4) mg/dL Estim Creat Clear Calc Estimated GFR POC Glucose (60-115) mg/dL Random Glucose (60-115) mg/dL Lactic Acid (0.5-2.0) mmol/L Lactic Acid F/U @ 2Hr (0.5-2.0) mmol/L Lactic Acid F/U @ 4Hr (0.5-2.0) mmol/L Calcium (8.4-10.2) mg/dL Total Bilirubin (0.0-1.0) mg/dL Direct Bilirubin (0.0-0.5) mg/dL AST (5-37) U/L ALT (0-40) U/L Alkaline Phosphatase (39-117) U/L Ammonia (13-55) umol/L Troponin I High Sens (<3.5-35.0) ng/L B-Natriuretic Peptide (<100) pg/mL Total Protein (6.5-8.0) g/dL Albumin (3.5-5.0) g/dL Lipase (8-78) U/L Urine Color YELLOW Urine Appearance CLEAR Urine pH 5.5 (5.0-8.0) Ur Specific [place] >= 1.030 H (1.005-1.025) Urine Protein TRACE (NEG-TRACE) MG/DL Urine Glucose (UA) 100 H (NEG) MG/DL Urine Ketones 40 (NEG) MG/DL Urine Blood TRACE (NEG) Urine Nitrite NEG (NEG) Ur Leukocyte Esterase NEG (NEG) Urine RBC 1-4 (0) /HPF Urine WBC 0 (0-4) /HPF Ur Squamous Epith Cells TRACE /LPF Urine Bacteria NONE /LPF Hyaline Casts 1-4 /LPF Urine Mucus TRACE /LPF Urine Opiates Screen POSITIVE H (Not Detect) Urine Fentanyl Screen Not Detected (Not Detect) Ur Barbiturates Screen Not Detected (Not Detect) Ur Phencyclidine Scrn Not Detected (Not Detect) Ur Amphetamines Screen Not Detected (Not Detect) U Benzodiazepines Scrn Not Detected (Not Detect) Urine Cocaine Screen Not Detected (Not Detect) U Marijuana (THC) Screen Not Detected (Not Detect) Ethyl Alcohol mg/dL Influenza Type A (PCR) NEGATIVE (Negative) Influenza Type B (PCR) NEGATIVE (Negative) RSV RNA Qual (PCR) NEGATIVE (Negative) SARS-CoV-2 RNA (RT-PCR) NEGATIVE (Negative) Discharge Plan Discharge Clinical Impression: Altered mental status Prescriptions: No Action (DME) pen needle, diabetic [Ultra-Thin II Ins Pen [place]] 29 gauge x 1/2 needle See Rx Instructions .ROUTE .MEDSUPPLY Qty: 100 1RF Rx Instructions: 1 per day (DME) blood sugar diagnostic Strip See Rx Instructions ea .ROUTE TID Qty: 100 6RF Rx Instructions: Test 3 times daily folic acid 1 mg tablet 1 mg PO DAILY Qty: 90 1RF pioglitazone 30 mg tablet 30 mg PO DAILY Qty: 90 1RF simvastatin 20 mg tablet 20 mg PO QPM Qty: 90 1RF citalopram 10 mg tablet 10 mg PO DAILY Qty: 90 1RF metoprolol tartrate 100 mg tablet 100 mg PO BID Qty: 180 0RF metformin 1,000 mg tablet 1,000 mg PO BID Qty: 180 1RF Lantus Solostar U-100 Insulin 100 unit/mL (3 mL) insulin pen 40 unit subcut BEDTIME Qty: 15 1RF Eliquis 5 mg tablet 5 mg PO BID 90 Days Qty: 180 1RF Hold Instructions: Doctor's Order levothyroxine [Synthroid] 25 mcg tablet 25 mcg PO DAILY Qty: 90 0RF cholecalciferol (vitamin D3) 25 mcg (1,000 unit) tablet 25 mcg PO DAILY 0RF omeprazole 20 mg capsule,delayed release(DR/EC) 20 mg PO QAM 0RF (DME) pen needle, diabetic 31 gauge x 5/16 needle See Rx Instructions ea subcut DAILY Qty: 1200 0RF Rx Instructions: As directed
[2021-07-31 22:21] LABS: Anion Gap 17 (12-20); Blood Urea Nitrogen 26 mg/dL (9-16); Calcium 9.4 mg/dL (8.4-10.2); Carbon Dioxide 26 mmol/L (22-29); Chloride 101 mmol/L (96-108); Creatinine Clr Calc Pharmacy 68.5; Estimated Glomerular Filt Rate 55; Glucose Random 196 mg/dL (60-115); Potassium 3.6 mmol/L (3.3-5.1); Sodium 140 mmol/L (135-145)
== END 2021-08-01 00:54 | disposition home or self-care (01) ==
PROVIDERS: Emergency Medicine; Emergency Provider Emergency Medicine
DX: R41.82 Altered mental status, unspecified (principal); R51.9 Headache, unspecified; Z20.822 Contact with and (suspected) exposure to COVID-19; E11.9 Type 2 diabetes mellitus without complications; I48.91 Unspecified atrial fibrillation; I10 Essential (primary) hypertension; Z79.4 Long term (current) use of insulin; Z79.01 Long term (current) use of anticoagulants; Z79.899 Other long term (current) drug therapy
CPT/HCPCS: 0241U; 36415; 70450; 70551; 71045; 80048; 80076; 80307; 81001; 82077; 82140; 82947; 83605; 83690; 83880; 84484; 85025; 85610; 87040; 93005; 96361; 96374; 96375; 99284; 99285; J2270; J2765

== ENCOUNTER 2021-09-24 11:21 | Outpatient (REF) | payer OTHER, SELFPAY ==
[2021-09-24 12:44] LABS: Appearance Urine CLEAR; Color Urine YELLOW; Glucose Urine UA 500 MG/DL (NEG); Leukocyte Esterase Urine NEG (NEG); Nitrite Urine NEG (NEG); Specific Gravity - Urine >= 1.030 (1.005-1.025); Urine Blood TRACE (NEG); Urine Ketones 5 MG/DL (NEG); Urine Protein TRACE MG/DL (NEG-TRACE)
[2021-09-24 12:53] LABS: RBC Urine 0-2 /HPF (0); Squamous Epithelial Cell Urine TRACE /LPF; WBC Urine 0-2 /HPF (0-4)
[2021-09-24 14:42] LABS: Creatinine Urine 293.36 mg/dL; Microalbum/Creatinine Ratio Ur 27.2 ug/mg cr
== END 2021-09-24 11:22 | disposition home or self-care (01) ==
LOC: HO.LAB 11:21
PROVIDERS: PCP Internal Medicine; Visit Provider Internal Medicine
DX: E11.65 Type 2 diabetes mellitus with hyperglycemia (principal); E11.39 Type 2 diabetes mellitus with other diabetic ophthalmic complication; I10 Essential (primary) hypertension; I48.19 Other persistent atrial fibrillation; E66.01 Morbid (severe) obesity due to excess calories; M16.12 Unilateral primary osteoarthritis, left hip
CPT/HCPCS: 81001; 82043

== ENCOUNTER 2021-10-16 13:22 | Outpatient (REF) | payer OTHER, SELFPAY ==
--- NOTE | ~2021-10-16 | XR_ITS ---
EXAMINATION: XR LUMBOSACRAL SPINE CLINICAL INFORMATION: Low back pain COMPARISON: CT abdomen from 03/04/2015 TECHNIQUE: Three views of the lumbosacral spine. FINDINGS: There are 5 segmented vertebra of the lumbar spine. The vertebral body heights and alignment are well-preserved. The disc spaces are maintained. Small vertebral osteophytes are observed at multiple levels. The sacrum and sacroiliac joints are intact. No evidence of sacral fracture. No lytic or osteoblastic lesion. The fixation hardware at the level of the right acetabulum is partially included in the [id number]. There is dense atherosclerotic calcification of the abdominal aorta without aneurysm. XR/XR lumbar spine 2-3V IMPRESSION: Mild spondylosis of the lumbar spine. No significant radiographic findings of the lumbar spine. No fracture or malalignment.
--- NOTE | ~2021-10-16 | US_ITS ---
EXAMINATION: US RETROPERITONEAL LIMITED (RENAL ONLY) CLINICAL INFORMATION: Unspecified abdominal pain, benign hypertension. COMPARISON: CT abdomen and pelvis 03/04/2015. TECHNIQUE: Real-time imaging of the kidneys. FINDINGS: RIGHT KIDNEY: 11.2 x 6.1 x 5.6 cm (SAG x AP x TRV). The kidney is normal in size, contour, and echogenicity. Renal cortical thickness is normal. No calculi or focal parenchymal lesions. No hydronephrosis. A low-attenuation perinephric fluid collection is questioned. LEFT KIDNEY: 11.9 x 6.0 x 5.4 cm (SAG x AP x TRV). The kidney is normal in size, contour, and echogenicity. Renal cortical thickness is normal. No calculi or focal parenchymal lesions. No hydronephrosis. A low-attenuation perinephric fluid collection is questioned. US/US renal BI IMPRESSION: 1. No renal mass, calculus or hydronephrosis is seen bilaterally. 2. Low-attenuation bilateral perinephric collections are questioned, which can be more fully evaluated with CT, if clinically indicated.
== END 2021-10-16 13:23 | disposition home or self-care (01) ==
LOC: HO.US 13:22
PROVIDERS: Absent Provider Internal Medicine; PCP Internal Medicine; Visit Provider Physician Assistant
DX: R10.9 Unspecified abdominal pain (principal); M54.50 Low back pain, unspecified; I10 Essential (primary) hypertension
CPT/HCPCS: 72100; 76775

== ENCOUNTER 2021-11-26 12:28 | Outpatient (REF) | payer OTHER, SELFPAY ==
--- NOTE | ~2021-11-26 | CT_ITS ---
EXAMINATION: CT ABDOMEN AND PELVIS WITHOUT CONTRAST CLINICAL INFORMATION: Other specified disorder of kidney and ureter. Follow-up question perinephric collections on ultrasound COMPARISON: Previous renal ultrasound 10/16/[address] of the abdomen and pelvis February 2017 TECHNIQUE: Multidetector volumetric imaging was performed from the superior aspect of the liver through the pubic symphysis. Sagittal and coronal reformatted images were obtained on the technologist's workstation. This CT examination was performed using dose optimization techniques as appropriate, variously including the following: *Automated exposure control *Adjustment of mA and/or kV according to patient size (this includes techniques or standardized protocols for targeted exams where dose is matched to indication/reason for exam; i.e. extremities or head) *Use of iterative reconstruction technique DLP: 1523 mGy-cm FINDINGS: LUNG BASES: There are new clustered heterogeneous nodules in the right lower lobe, largest measuring 1 cm. LIVER, GALLBLADDER, AND BILIARY TREE: The liver is normal in size, shape, and attenuation. No focal hepatic lesion or biliary ductal dilatation is present. The gallbladder is unremarkable with no evidence of radiopaque gallstones, gallbladder wall thickening, or obvious pericholecystic inflammatory changes. PANCREAS: There is fatty infiltration of the pancreas. The pancreas is otherwise unremarkable. SPLEEN: Unremarkable. ADRENAL GLANDS: Unremarkable. KIDNEYS AND URETERS: The kidneys are normal in size, shape, and attenuation. No hydronephrosis, hydroureter, or calculi seen. There is bilateral perinephric stranding. This is slightly increased from 2015. No perinephric mass. BLADDER: Unremarkable. GASTROINTESTINAL TRACT: There is diverticulosis of the colon. No evidence of diverticulitis is seen. Small and large bowel is otherwise normal. The appendix is normal. The stomach is normal. ABDOMINAL WALL: Bilateral inguinal hernias containing fat. There is skin thickening and stranding of the subcutaneous fat in the periumbilical region. LYMPH NODES: Normal. VASCULAR: There is atherosclerotic disease. No aneurysm.. PELVIC VISCERA: Unremarkable. OSSEOUS STRUCTURES: Postsurgical changes to the right acetabulum. Mild degenerative changes of the spine and hip joints. CT/CT abdomen pelvis wo IV con IMPRESSION: Mild nonspecific perinephric fat stranding. No mass. Diverticulosis of the colon. New heterogeneous nodules in the right lower lobe, largest measuring 1 cm. Follow-up chest CT recommended. Fleischner guidelines were followed.
== END 2021-11-26 12:29 | disposition home or self-care (01) ==
LOC: HO.CT 12:28
PROVIDERS: PCP Internal Medicine; Visit Provider Physician Assistant
DX: N28.89 Other specified disorders of kidney and ureter (principal)
CPT/HCPCS: 74176

== ENCOUNTER → 2021-12-02 13:23 | Outpatient (BNVA) | payer OTHER, SELFPAY | PROVIDERS: PCP Internal Medicine; Referring Provider Internal Medicine; Visit Provider Internal Medicine | DX: I48.19 Other persistent atrial fibrillation (principal); I10 Essential (primary) hypertension; E11.65 Type 2 diabetes mellitus with hyperglycemia; G47.33 Obstructive sleep apnea (adult) (pediatric) | CPT/HCPCS: 93005 ==

== ENCOUNTER 2021-12-16 10:28 | Outpatient (REF) | payer OTHER, SELFPAY ==
[2021-12-16 11:51] LABS: Hemoglobin 14.4 g/dl (14.0-18.0); Mean Corpuscular Hemoglobin 29.2 pg (27.0-33.0); Mean Corpuscular Volume 91.3 fL (80.0-98.0); Platelet Count 263 X10*3/uL (160-400); Red Blood Count 4.93 X10*6/uL (4.60-5.80); Red Cell Distribution Width 13.3 % (11.0-16.0); White Blood Count 9.7 X10*3/uL (4.8-10.8)
[2021-12-16 11:52] LABS: Appearance Urine Clear; Color Urine Dark Yellow; Glucose Urine UA >=1000 mg/dL (Negative); Leukocyte Esterase Urine Negative (Negative); Nitrite Urine Negative (Negative); PH 5.5 (5.0-9.0); Specific Gravity - Urine >= 1.030 (1.005-1.025); UMIC TRIGGER UA YES; Urine Blood Negative (Negative); Urine Ketones Trace mg/dL (Negative); Urine Protein 100 (2+) mg/dL (Neg-Trace)
[2021-12-16 11:58] LABS: Bacteria Urine None Seen (None Seen); Hyaline Casts Urine 0-2 /LPF (0-2); RBC Urine 0-2 /HPF (0-2); Squamous Epithelial Cell Urine 0-2 /HPF (0-2); WBC Urine 0-5 /HPF (0-5)
[2021-12-16 12:19] LABS: Anion Gap 16 (12-20); Blood Urea Nitrogen 19 mg/dL (9-16); Calcium 9.4 mg/dL (8.4-10.2); Carbon Dioxide 29 mmol/L (22-29); Chloride 101 mmol/L (96-108); Estimated Glomerular Filt Rate 57; Glucose Random 217 mg/dL (60-115); Potassium 4.7 mmol/L (3.3-5.1); Sodium 141 mmol/L (135-145)
== END 2021-12-16 10:29 | disposition home or self-care (01) ==
LOC: HO.LAB 10:28
PROVIDERS: PCP Physician Assistant; Visit Provider Internal Medicine
DX: I10 Essential (primary) hypertension (principal)
CPT/HCPCS: 36415; 80048; 81001; 85027

== ENCOUNTER 2021-12-25 09:27 | Outpatient (REF) | payer OTHER, SELFPAY ==
--- NOTE | ~2021-12-25 | CT_ITS ---
EXAMINATION: CT CHEST WITH CONTRAST CLINICAL INFORMATION: Pulmonary nodule COMPARISON: Previous chest x-ray July 2021 and abdominal and pelvic CT scan November 2021 TECHNIQUE: Multidetector volumetric CT imaging of the chest was obtained after the administration of 65 mL of Omnipaque 350 intravenous contrast without immediate adverse reactions. Axial MIP volume rendering provided. Sagittal and coronal reformatted images were obtained. This CT examination was performed using dose optimization techniques as appropriate, variously including the following: *Automated exposure control *Adjustment of mA and/or kV according to patient size (this includes techniques or standardized protocols for targeted exams where dose is matched to indication/reason for exam; i.e. 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 The lungs are clear. MEDIASTINUM: There is mediastinal and bilateral hilar lymphadenopathy. Largest lymph nodes are upper normal in size, for example right hilar lymph node measuring 1 cm in short axis. No enlarged lymph nodes. The mediastinum is otherwise normal. CORONARY ARTERY CALCIFICATION: Moderate PLEURA: There is no pleural effusion. No pleural mass or thickening. AXILLA: No lymphadenopathy. There is a 1.5 x 2 cm low-attenuation cystic-appearing lesion just deep to the skin in the right upper anterior chest wall probably representing a sebaceous or epidermoid cyst. UPPER ABDOMEN: Unremarkable OSSEOUS STRUCTURES: There are old left lateral rib fractures. CT/CT chest w IV con IMPRESSION: Previously identified clustered semisolid right lower lobe nodules November [address] scan no longer seen. Upper normal-size mediastinal and bilateral hilar lymph nodes. Moderate coronary artery calcification. Fleischner guidelines were followed.
[2021-12-25] MEDS: iohexoL 350 MG/ML 100 ML INFUS..BTL IV (10:11)
== END 2021-12-25 09:28 | disposition home or self-care (01) ==
LOC: HO.CT 09:27
PROVIDERS: PCP Internal Medicine; Visit Provider Physician Assistant
DX: R91.1 Solitary pulmonary nodule (principal)
CPT/HCPCS: 71260; Q9967

== ENCOUNTER 2022-09-10 10:25 | Outpatient (AMB) | payer OTHER, SELFPAY ==
--- NOTE | 2022-09-10 10:33 | A.OFFPC_ITS ---
Vital Signs 09/10/22 10:35 Height 5 ft 7 in Weight 269 lb 2 oz BMI 42.1 BP 110/70 Blood Pressure Location Lt brachial Position Sitting Pulse 59 Pulse Source Pulse Oximeter Pulse Oximetry (%) 96 Oxygen Delivery Method Room Air Intake Visit Reasons: 3mth f/u Intake Note: Patient is here to follow up on DM, NICOLLE, Lumbar spine pain, PAF, and HTN. 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: No Drafter Detail: Not Required per policy Accompanied by: Self / Same As Patient Allergies No Known Allergies [NO KNOWN ALLERGIES] Allergy (Unknown, Verified 09/18/22 14:02) unknown Medication List - Last Reconciled 09/18/22 by Abe Yeager MD apixaban (Eliquis) 5 mg PO BID 90 days blood sugar diagnostic Test 3 times daily jkzdefq-hinfjywkx-rnbb 1 tab PO DAILY cholecalciferol (vitamin D3) 25 mcg PO DAILY citalopram 10 mg PO DAILY folic acid 1 mg PO DAILY insulin glargine (Lantus Solostar U-100 Insulin) 50 units subcut BEDTIME levothyroxine (Synthroid) 25 mcg PO DAILY metformin 1,000 mg PO BID metoprolol tartrate 100 mg PO BID omeprazole 20 mg PO QAM pen needle, diabetic As directed pen needle, diabetic (Ultra-Thin II Insulin Pen [place]) 1 per day pioglitazone 30 mg PO DAILY simvastatin 20 mg PO QPM tramadol 50 mg PO DAILY PRN Tobacco use date assessed: 09/10/22 Fall risk assessment: 1 Fall in past year Last assessed Fall Risk: 09/10/22 Dental Screening Dental Screen Date: 09/10/22 Did you have a dental visit in the last 12 months?: No Did you have a dental problem in the last 6 months where you did not have access to dental care?: Yes HPI 3mth f/u HPI Details 67-year-old male presents to the office to discuss his chronic medical conditions. Patient continues to be sober as per the requirements of the law for him. He has been compliant with medications. Not exercising or following any particular diet. He needs no refills today. Able to function and do activities of daily living. [facility] Medical History AA (alcohol abuse) Anxiety B12 deficiency Benign essential HTN Benign prostatic hyperplasia without lower urinary tract symptoms Body mass index [BMI] 38.0-38.9, adult DM (diabetes mellitus) type II uncontrolled with eye manifestation Fecal incontinence Foot ulcer, left GERD (gastroesophageal reflux disease) Hiatal hernia History of cardioversion Hypercholesterolemia Morbid (severe) obesity due to excess calories On anticoagulant therapy On beta gna at home FLORES (obstructive sleep apnea) Paroxysmal atrial fibrillation Type 2 diabetes mellitus with diabetic autonomic (poly)neuropathy Surgical History Deficient knowledge of leg surgery H/O left inguinal hernia repair History of amputation of toe History of cataract surgery History of esophagogastroduodenoscopy (EGD) History of hip surgery History of surgery History of tonsillectomy Hx of colonoscopy Family History Father No problems noted. Mother Asthma Brother No problems noted. Brother No problems noted. Brother No problems noted. Sister No problems noted. Sister No problems noted. Social History Housing: Apartment Alcohol intake: current Alcohol intake frequency: does not drink Alcohol type: beer Patient Tobacco Use Status: Never used Tobacco e-Cigarette/Vaping Use: Never Used Second Hand Smoke Exposure: No Substance Use Type: Marijuana service: No Current occupational status: retired Cognitive needs: No Hearing needs: No Vision needs: Yes (Reading Glasses) Questionnaire Thrive Questionnaire Date Thrive assessed: 06/04/22 ZACHERY-7 AMB Questionnaire ZACHERY-7 Date ZACHERY - 7 assessed: 06/04/22 Source: Developed by Drs. Erik Astorga, Neris Aragon, Jacob Hernandez and colleagues, with an educational lore from [employer]. Physical exam (Primary Care) Vital Signs: Last Vital Signs Pulse 59 09/10/22 10:35 BP 110/70 09/10/22 10:35 Pulse Ox 96 09/10/22 10:35 Oxygen Delivery Method Room Air 09/10/22 10:35 BMI result Body Mass Index 42.1 Tobacco/Smoking Status: Tobacco use Status Tobacco use date assessed 09/10/22 09/10/22 10:45 Patient Tobacco Use Status Never used Tobacco 09/10/22 10:45 e-Cigarette/Vaping Use Never Used 09/10/22 10:45 Thrive Assessment: Date of Thrive Assessment Date Thrive assessed 06/04/22 09/10/22 10:45 Const General: cooperative, healthy appearing and comfortable HENMT Head: Yes normal to inspection and Yes atraumatic Eyes General: appearance normal, both eyes and all related structures Neck Neck: Yes normal visual inspection and Yes full ROM Chest Chest palpation & inspection: normal inspection of the chest Resp Effort & Inspection: normal respiratory effort Auscultation: clear to auscultation bilaterally Cardio Jugular venous distension: no JVD Palpation: normal PMI Rate: regular rate Heart sounds: S1 normal heart sound present and S2 normal heart sound present GI Palpation (GI): Soft to palpation and No hepatosplenomegaly present Extrem General: Yes normal to inspection and Yes full ROM Results AMB Hemoglobin A1c AMB Hemoglobin A1c 9.4 % Last Edit by LIEN Gonsalez on 09/10/22 10:48 Results Reviewed Results Reviewed: Laboratory Last Values Hgb A1c (Clinic) 9.4 % (4.0-6.0) H 09/10/22 10:33 Assessment and Plan Assessment & Plan (1) Acute kidney injury: Code(s): N17.9 - Acute kidney failure, unspecified Plan: Condition is stable. Continue current medications. (2) Morbid (severe) obesity due to excess calories: Code(s): E66.01 - Morbid (severe) obesity due to excess calories Plan: Counseling on the importance of diet and exercise done. (3) DM (diabetes mellitus) type II uncontrolled with eye manifestation: Comment: IDDM Code(s): E11.39 - Type 2 diabetes mellitus with other diabetic ophthalmic complication; E11.65 - Type 2 diabetes mellitus with hyperglycemia Plan: A1c is not in range. Counseling on the importance of diet and exercise done. No medication dosages were altered. Orders: Orders Basic Metabolic Panel 09/10/22 N17.9 - Acute kidney failure, unspecified, E66.01 - Morbid (severe) obesity due to excess calories, E11.39 - Type 2 diabetes mellitus with other diabetic ophthalmic complication, E11.65 - Type 2 diabetes mellitus with hyperglycemia Lipid Panel 09/10/22 N17.9 - Acute kidney failure, unspecified, E66.01 - Morbid (severe) obesity due to excess calories, E11.39 - Type 2 diabetes mellitus with other diabetic ophthalmic complication, E11.65 - Type 2 diabetes mellitus with hyperglycemia Liver Panel 09/10/22 N17.9 - Acute kidney failure, unspecified, E66.01 - Morbid (severe) obesity due to excess calories, E11.39 - Type 2 diabetes mellitus with other diabetic ophthalmic complication, E11.65 - Type 2 diabetes mellitus with hyperglycemia Hemoglobin A1c 09/10/22 N17.9 - Acute kidney failure, unspecified, E66.01 - Morbid (severe) obesity due to excess calories, E11.39 - Type 2 diabetes mellitus with other diabetic ophthalmic complication, E11.65 - Type 2 diabetes mellitus with hyperglycemia Thyroid Stimulating Hormone 09/10/22 N17.9 - Acute kidney failure, unspecified, E66.01 - Morbid (severe) obesity due to excess calories, E11.39 - Type 2 diabetes mellitus with other diabetic ophthalmic complication, E11.65 - Type 2 diabetes mellitus with hyperglycemia Microalbumin, Random (w Creat) 09/10/22 N17.9 - Acute kidney failure, unspecified, E66.01 - Morbid (severe) obesity due to excess calories, E11.39 - Type 2 diabetes mellitus with other diabetic ophthalmic complication, E11.65 - Type 2 diabetes mellitus with hyperglycemia UA and rflx microscopic 09/10/22 N17.9 - Acute kidney failure, unspecified, E66.01 - Morbid (severe) obesity due to excess calories, E11.39 - Type 2 diabetes mellitus with other diabetic ophthalmic complication, E11.65 - Type 2 diabetes mellitus with hyperglycemia AMB Hemoglobin A1c 09/10/22 E11.65 - Type 2 diabetes mellitus with hyperglycemia Coding Level of Care Code Est Pt Level 4 (23049) Diagnoses Acute kidney injury N17.9 Morbid (severe) obesity due to excess calories E66.01 DM (diabetes mellitus) type II uncontrolled with eye manifestation E11.39; E11.65
[2022-09-10 10:35] VITALS: BP 110/70; PULSE 59; O2SAT 96; BMI 42.1
== END 2022-09-10 10:59 | disposition home or self-care (01) ==
PROVIDERS: PCP Internal Medicine; Visit Provider Internal Medicine
DX: E11.39 Type 2 diabetes mellitus with other diabetic ophthalmic complication; E11.65 Type 2 diabetes mellitus with hyperglycemia
CPT/HCPCS: 83036; 99214

== ENCOUNTER 2022-09-10 11:06 | Outpatient (REF) | payer OTHER, SELFPAY ==
[2022-09-10 12:38] LABS: Alanine Aminotransferase 10 U/L (0-40); Albumin Level 3.9 g/dL (3.5-5.0); Alkaline Phosphatase 67 U/L (39-117); Anion Gap 13 (12-20); Aspartate Amino Transferase 13 U/L (5-37); Bilirubin Direct 0.2 mg/dL (0.0-0.5); Bilirubin Total 0.7 mg/dL (0.0-1.0); Blood Urea Nitrogen 20 mg/dL (9-16); Calcium 9.5 mg/dL (8.4-10.2); Carbon Dioxide 30 mmol/L (22-29); Chloride 101 mmol/L (96-108); Cholesterol 160 mg/dL; Estimated Glomerular Filt Rate 58; Glucose Random 151 mg/dL (60-115); HDL Cholesterol 27 mg/dL; LDL Cholesterol Calculated 94 mg/dl; Potassium 4.4 mmol/L (3.3-5.1); Sodium 140 mmol/L (135-145); Total Protein 7.2 g/dL (6.5-8.0); Triglycerides 196 mg/dL
[2022-09-10 12:57] LABS: Thyroid Stimulating Hormone 3.47 uIU/mL (0.32-4.0)
== END 2022-09-10 11:07 | disposition home or self-care (01) ==
LOC: HO.LAB 11:06
PROVIDERS: PCP Internal Medicine; Visit Provider Internal Medicine
DX: E11.39 Type 2 diabetes mellitus with other diabetic ophthalmic complication (principal); E11.65 Type 2 diabetes mellitus with hyperglycemia; E66.01 Morbid (severe) obesity due to excess calories; N17.9 Acute kidney failure, unspecified
CPT/HCPCS: 36415; 80048; 80061; 80076; 83036; 84443

== ENCOUNTER 2022-12-09 12:26 | Outpatient (AMB) | payer OTHER, SELFPAY ==
--- NOTE | 2022-12-09 12:37 | MHC.OFFVIS ---
Intake Vital Signs 12/09/22 12:50 Height 5 ft 7 in Weight 264 lb 8.875 oz BMI 41.4 BP 100/64 Blood Pressure Location Lt brachial Position Sitting Pulse 62 Intake Visit Reasons: 1 yr f/up Intake Note: 1 year follow up w/ EKG Advertising Sales Assistant Required: No Accompanied by: self Allergies No Known Allergies [NO KNOWN ALLERGIES] Allergy (Unknown, Verified 12/09/22 12:53) unknown Medication List - Last Reconciled 12/09/22 by Roc Mann MD apixaban (Eliquis) 5 mg PO BID 90 days blood sugar diagnostic Test 3 times daily xzaourx-bzvthldwo-rtro 1 tab PO DAILY cholecalciferol (vitamin D3) 25 mcg PO DAILY citalopram 10 mg PO DAILY folic acid 1 mg PO DAILY insulin glargine (Lantus Solostar U-100 Insulin) 50 units (0.5 mL) subcut BEDTIME levothyroxine (Synthroid) 25 mcg PO DAILY metformin 1,000 mg PO BID metoprolol tartrate 100 mg PO BID omeprazole 20 mg PO QAM pen needle, diabetic As directed pen needle, diabetic (Ultra-Thin II Insulin Pen [place]) 1 per day pioglitazone 30 mg PO DAILY simvastatin 20 mg PO QPM tramadol 50 mg PO DAILY PRN HPI HPI Comments History of Present Illness Details Zack returns for follow-up regarding paroxysmal atrial fibrillation and flutter. He has tried and failed flecainide in the past. Has also tried Multaq, but that led to bradycardia requiring atropine and was also stopped. Now remains on metoprolol only. Previous cardioversions but nothing recently. However, by EKG he is in sinus rhythm today. He states that he has been getting short of breath recently. With activity like walking, he may feel short of breath. No angina however. No palpitations. [facility] Medical History AA (alcohol abuse) Anxiety B12 deficiency Benign essential HTN Benign prostatic hyperplasia without lower urinary tract symptoms Body mass index [BMI] 38.0-38.9, adult DM (diabetes mellitus) type II uncontrolled with eye manifestation Fecal incontinence Foot ulcer, left GERD (gastroesophageal reflux disease) Hiatal hernia History of cardioversion Hypercholesterolemia Morbid (severe) obesity due to excess calories On anticoagulant therapy On beta nga at home FLORES (obstructive sleep apnea) Paroxysmal atrial fibrillation Type 2 diabetes mellitus with diabetic autonomic (poly)neuropathy Surgical History H/O left inguinal hernia repair History of esophagogastroduodenoscopy (EGD) Hx of colonoscopy History of surgery Deficient knowledge of leg surgery History of hip surgery History of amputation of toe History of cataract surgery History of tonsillectomy Family History Father No problems noted. Mother Asthma Brother No problems noted. Brother No problems noted. Brother No problems noted. Sister No problems noted. Sister No problems noted. Social History Housing: Apartment Alcohol intake: current Alcohol intake frequency: does not drink Alcohol type: beer Patient Tobacco Use Status: Never used Tobacco e-Cigarette/Vaping Use: Never Used Second Hand Smoke Exposure: No Substance Use Type: Marijuana service: No Current occupational status: retired Cognitive needs: No Hearing needs: No Vision needs: Yes (Reading Glasses) Review of Systems Const Denies weakness ENT Denies dizziness Card Denies chest pain, Denies chest pain with activity, Denies syncope, Denies rapid heart rate, Denies pedal edema, Denies edema, Denies leg edema, Denies lightheadedness, Denies palpitations, Denies dyspnea, Denies dyspnea on exertion and Denies orthopnea Resp Denies cough, Denies dyspnea and Denies dyspnea on exertion GI Denies hematochezia and Denies change in stool character Musc Denies abnormal gait, Denies muscle cramps, Denies muscle weakness, Denies numbness, Denies radiating pain into limb and Denies tingling Neuro Denies abnormal gait, Denies dizziness, Denies syncope, Denies numbness, Denies tingling and Denies weakness Endo Denies palpitations Physical Exam Vital Signs: Last Vital Signs Pulse 62 12/09/22 12:50 BP 100/64 12/09/22 12:50 BMI result Body Mass Index 41.4 Const General: comfortable and no acute distress Orientation/consciousness: patient oriented x3 HEENT Other: Unremarkable Head: Yes normal to inspection Neck Neck: Yes normal visual inspection Chest Chest palpation & inspection: normal inspection of the chest Resp Auscultation: clear to auscultation bilaterally Cardio Palpation: normal PMI Heart sounds: S1 normal heart sound present, S2 normal heart sound present, no gallops, no murmurs and no rubs GI Palpation (GI): Soft to palpation Back/Spine/Pelvis Other: unremarkable Skin General skin exam: no rashes or lesions noted Neuro General: patient oriented x3 Extrem General: Yes normal to inspection Psych Mental Status: mental status grossly normal Office Procedures EKG Details: EKG with sinus rhythm at 62/Min; no significant ST-T changes and otherwise unremarkable. [place]. [id number], Complete Assessment & Plan Assessment & Plan (1) Shortness of breath: Code(s): R06.02 - Shortness of breath Plan: Will need to evaluate for cardiomyopathy as well as coronary disease. Obtain echocardiogram and stress test for further evaluation. (2) Paroxysmal atrial fibrillation: Code(s): I48.0 - Paroxysmal atrial fibrillation Plan: Last time, he was in atrial fibrillation but today he is in sinus rhythm by EKG. He has failed prior cardioversions as well as antiarrhythmics. May continue beta-blockers. Also on anticoagulation. (3) Essential hypertension: Code(s): I10 - Essential (primary) hypertension Plan: Stable. No changes. 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 Not well controlled. Most recent hemoglobin A1c is 9.5%. (5) FLORES (obstructive sleep apnea): Code(s): G47.33 - Obstructive sleep apnea (adult) (pediatric) Plan: Not using regularly. Orders: Orders CA echo transthoracic complete Today R06.02 - Shortness of breath CA lexiscan stress w meka Today I25.10 - Atherosclerotic heart disease of [place] coronary artery without angina pectoris, R06.02 - Shortness of breath NM cardiolite stress test Today I25.10 - Atherosclerotic heart disease of [place] coronary artery without angina pectoris, R06.02 - Shortness of breath Coding Level of Care Code Est Pt Level 4 (75369) Diagnoses Shortness of breath R06.02 Paroxysmal atrial fibrillation I48.0 Essential hypertension I10 Type 2 diabetes mellitus with hyperglycemia, with long-term current use of insulin E11.65; Z79.4 Diabetes mellitus type: type 2 Diabetes mellitus termite control service representative insulin use: with termite control service representative use FLORES (obstructive sleep apnea) G47.33 CPT Codes EKG - CPT: 56144-Izkebkpzsurlijqjt, Complete ([id number])
[2022-12-09 12:50] VITALS: BP 100/64; PULSE 62; BMI 41.4
== END 2022-12-09 13:22 | disposition home or self-care (01) ==
PROVIDERS: PCP Internal Medicine; Visit Provider Internal Medicine
DX: R06.02 Shortness of breath (principal); I48.0 Paroxysmal atrial fibrillation; I10 Essential (primary) hypertension; E11.65 Type 2 diabetes mellitus with hyperglycemia; Z79.4 Long term (current) use of insulin; G47.33 Obstructive sleep apnea (adult) (pediatric)
CPT/HCPCS: 93010; 99214

== ENCOUNTER → 2022-12-09 12:26 | Outpatient (BNVA) | payer OTHER, SELFPAY | PROVIDERS: PCP Internal Medicine; Visit Provider Internal Medicine | DX: I48.0 Paroxysmal atrial fibrillation (principal); I10 Essential (primary) hypertension; R06.02 Shortness of breath | CPT/HCPCS: 93005 ==

== ENCOUNTER → 2023-01-06 10:19 | Outpatient (REF) | payer OTHER, SELFPAY ==
--- NOTE | 2023-01-06 10:22 | CA_ITS ---
Transthoracic Echocardiogram Patient (Last, First, Middle): Zack Mills J Gender: Male Date of : 1955 Age: 67 Procedure Date: 01/06/2023 Procedure Type: Transthoracic Echocardiogram Location: OP Height: 172.72 cm Weight: 131.54 kg BSA: 2.39 m2 Heart Rate: 60 bpm BP: 138 / 80 mmHg Airport Guide: Referring MD: Roc Mann MD Lap Winding Machine Operator: Michel Gallegos MD Symptoms: R06.02 - Shortness of breath Study Quality: Adequate w Definity ECG Rhythm: Sinus Conclusions: - Essentially normal study Findings Left Ventricle Normal left ventricular size, thickness, and systolic function. The visually estimated ejection fraction is between 60-65%. Spectral Doppler is indicative of a normal filling pattern. Right Ventricle Normal right ventricular cavity size and systolic function. Atria The left atrium is normal in size. Interatrial shunt cannot be excluded. The right atrium was not well visualized. Aortic Valve The aortic valve structure and function is likely normal. There is no aortic valve stenosis. There is no aortic valve regurgitation. Mitral Valve Likely normal mitral valve structure and function. There is trace mitral valve regurgitation. There is no mitral valve stenosis. Pulmonic Valve The pulmonic valve was not well visualized. Tricuspid Valve Likely normal tricuspid valve structure and function. There is trace tricuspid valve regurgitation. The right ventricular systolic pressure is normal. The right ventricular systolic pressure is 18 mmHg. Normal right atrial pressure. There is no evidence of pulmonary hypertension. Great Vessels All visible segments of the aorta are normal in size. The pulmonary artery was not well visualized. Venous The inferior vena cava is normal in size and collapses greater than 50% with inspiration. Pericardium/Pleural There is no evidence of pericardial effusion. Measurements 2D Linear Measurements IVSd: 1.08 0.6-0.9/0.6-1.0 cm LVIDd: 4.79 3.9-5.3/4.2-5.9 cm LVIDd Index: 2.00 2.4-3.2/2.2-3.1 cm/m2 LVIDs: 3.09 2.0-3.6 cm LVPWd: 1.05 0.7-1.1 cm Ao Root: 3.50 2.1-3.5 cm LA Diam: 5.00 2.7-3.8/3.0-4.0 cm LAIDs Index: 2.09 1.5-2.3 cm/m2 LV Mass: 286.96 67-162/88-224 g LV Mass Index: 120.07 43-95/49-115 g/m2 LVOT Diam: 2.20 3.0+(-)1.3 cm Mitral Valve MV Pk E: 0.60 MV PK A: 0.41 MV Decel Time: 227.00 E/A: 1.50 E'Lateral: 10.80 E'Medial: 6.64 E/E' Med: 9.10 E/E' Lat: 5.60 PHT: 66.00 MVA PHT: 3.33 Decel [place]: 2.67 Aortic Valve AoV Pk Jackson: 1.33 AoV Mn Jackson: 0.78 AoV VTI: 0.29 AoV Pk Grad: 7.00 Aov Mn Grad: 3.00 INEZ Cont.VTI: 2.40 LVOT LVOT Pk Jackson: 0.75 LVOT Mn Jackson: 0.45 LVOT VTI: 0.18 LVOT Pk Grad: 2.00 LVOT Mn Grad: 1.00 LVOT Diam: 2.20 LVOT Area: 3.80 Diastolic Function MV Pk E: 0.60 MV Pk A: 0.41 E/A: 1.50 E'Medial: 6.64 E/E' Med: 9.10 E' Laterial: 10.80 E/E' Lat: 5.60 Right Ventricle TAPSE (mm): 25.00 TVS' Jackson: 15.00 Tricuspid Valve TR Pk Jackson: 1.93 TR Pk Grad: 15.00 RA Press: 3.00 RVSP: 18.00 Great Vessels Aorta Ao Root-2D: 3.50 2.0-3.7 cm Ao Asc: 3.40 2.1-3.4 cm Pulmonary Valve PV Pk Jackson: 0.82 Peak PV Grad: 3.00 Updated in Other Vendor System with Status of Final Michel Gallegos MD electronically signed on 01/07/2023 12:16:28 PM with status of Final
== END ==
LOC: HO.CARD 10:19
PROVIDERS: PCP Internal Medicine; Visit Provider Internal Medicine
DX: R06.02 Shortness of breath (principal)
CPT/HCPCS: 93306; Q9957

== ENCOUNTER → 2023-01-06 10:22 | Outpatient (BNV) | payer OTHER, SELFPAY | PROVIDERS: PCP Internal Medicine; Visit Provider Internal Medicine Cardiovascular Disease | DX: R06.02 Shortness of breath (principal) | CPT/HCPCS: 93306 ==

== ENCOUNTER → 2023-01-25 09:19 | Outpatient (REF) | payer OTHER, SELFPAY ==
--- NOTE | ~2023-01-25 | NM_ITS ---
Lexiscan Myocardial perfusion study Indication: Shortness of breath, assess for coronary disease. Technique: The patient was brought in for a Lexiscan perfusion study on 01/25/2023 and was injected 0.4 mg of Lexiscan intravenously. Within a minute of this injection 40 mCi of sestamibi was given intravenously. Images were obtained using the SPECT gamma camera interlaced with the gating device. Images were obtained in supine position. Resting perfusion study was performed on 02/02/2023. Patient was administered 40 mCi of sestamibi intravenously at rest. Images were then obtained in supine position. Images were processed with the software and compared side to side in short axis, horizontal long axis and vertical long axis views. Total DLP 183mGy-cm. Findings: Raw acquisition reviewed. Arms by the patient's side during rest. Possibly some motion artifact during stress as well as rest. The stress perfusion study showed no significant perfusion defects. Both uncorrected as well as CT attenuation corrected images were reviewed. The gated study shows normal LV systolic function with calculated LVEF of 72%. LV cavity is normal in size. The gated study shows normal wall thickening and contraction of segments. Resting study shows no significant perfusion defects. Gating at rest reveals normal wall motion with ejection fraction at 67 %. The findings are consistent with no clear evidence of any ischemia or infarction. NM/NM cardiolite stress test Impression: 1. Myocardial perfusion imaging study shows probably normal myocardial perfusion. No definitive findings to suggest ischemia or infarction. 2. Gated LVEF is 72% during stress and 67% during rest. 3. Transient ischemic dilatation not present. EKG component of the test reported separately.
--- NOTE | 2023-01-25 09:22 | CA_ITS ---
Acquisition Time: 2023-01-25 09:34:04 Total Exercise Time: 00:02:00 Test Indications: SOB,ASHD,SOB Medications: Protocol: LEXISCAN Max HR: 090 BPM 58% of Pred: 155 BPM Max BP: 128/070 mmHG Max Work Load: 1.0 METS Pharmacological stress test with Lexiscan injection while sitting, with mild SOB, no chest discomfort, without arrythmias, with normotensive response to injection, with nondiagnoisitic EKGs. Aminiohylline 75mg IVP given to reverse Lexiscan. Nuclear images pending. Test reviewed with Dr. Carpenter. Referred By: Roc Mann Overread By: Sari Rivas
== END ==
LOC: HO.CARD 09:19
PROVIDERS: PCP Internal Medicine; Visit Provider Internal Medicine
DX: R06.02 Shortness of breath (principal); I25.10 Atherosclerotic heart disease of native coronary artery without angina pectoris
CPT/HCPCS: 78452; 93017; A9500; J0280; J2785

== ENCOUNTER → 2023-01-25 09:22 | Outpatient (BNV) | payer OTHER, SELFPAY | PROVIDERS: PCP Internal Medicine; Visit Provider Nurse Practitioner | DX: R06.02 Shortness of breath (principal) | CPT/HCPCS: 78452; 93016; 93018 ==

== ENCOUNTER 2023-02-16 13:25 | Outpatient (AMB) | payer OTHER, SELFPAY ==
[2023-02-16 13:34] VITALS: BP 120/50; PULSE 73; BMI 41.6
--- NOTE | 2023-02-16 13:34 | A.OFFVIS_ITS ---
Intake Vital Signs 02/16/23 13:34 Height 5 ft 7 in Weight 265 lb 6.985 oz BMI 41.6 BP 120/50 L Blood Pressure Location Lt brachial Position Sitting Pulse 73 Pulse Source Monitor Intake Visit Reasons: f/up testing HS Community Resource Officer Required: No Allergies No Known Allergies [NO KNOWN ALLERGIES] Allergy (Unknown, Verified 02/16/23 13:37) unknown Medication List - Last Reconciled 02/16/23 by FRANCISCA Lopez apixaban (Eliquis) 5 mg PO BID 90 days blood sugar diagnostic Test 3 times daily olvspeo-clwrwnwnc-uoel 1 tab PO DAILY cholecalciferol (vitamin D3) 25 mcg PO DAILY citalopram 10 mg PO DAILY folic acid 1 mg PO DAILY insulin glargine (Lantus Solostar U-100 Insulin) 50 units (0.5 mL) subcut BEDTIME levothyroxine (Synthroid) 25 mcg PO DAILY metformin 1,000 mg PO BID metoprolol tartrate 100 mg PO BID omeprazole 20 mg PO QAM pen needle, diabetic As directed pen needle, diabetic (Ultra-Thin II Insulin Pen Valera) 1 per day pioglitazone 30 mg PO DAILY simvastatin 20 mg PO QPM tramadol 50 mg PO DAILY PRN HPI f/up testing HS HPI Details Zack is a 67-year-old male with past medical history paroxysmal atrial flutter and atrial fibrillation. He has failed flecainide in the past, Multaq lead to bradycardia requiring atropine in the past. He has failed cardioversion says in the. He is now on metoprolol for heart rate control, and Eliquis for anticoagulation. EKG done last visit showed sinus rhythm. He now presents for follow-up after recent echocardiogram and nuclear stress test. Today he reports that he was admitted to [facility] last week with increased shortness of breath. He was treated for fluid overload with improvement in his symptom. He was not discharged with diuretics. His breathing is better than when he went into the hospital but is still short of breath with activity. He says he does not have COPD. He did not have leg edema at the time of his hospital admission or now. He denies chest discomfort at rest or with activity. No heart palpitations, presyncope, syncope, PND, orthopnea. Does only light activity due to being short of breath. Takes his medications as directed. REPLACED BY [facility] Medical History Foot ulcer, left FLORES (obstructive sleep apnea) History of cardioversion Hiatal hernia On anticoagulant therapy On beta nga at home Fecal incontinence AA (alcohol abuse) Type 2 diabetes mellitus with diabetic autonomic (poly)neuropathy B12 deficiency Benign prostatic hyperplasia without lower urinary tract symptoms GERD (gastroesophageal reflux disease) Hypercholesterolemia Benign essential HTN Body mass index [BMI] 38.0-38.9, adult Morbid (severe) obesity due to excess calories Anxiety Paroxysmal atrial fibrillation DM (diabetes mellitus) type II uncontrolled with eye manifestation Surgical History H/O left inguinal hernia repair History of esophagogastroduodenoscopy (EGD) Hx of colonoscopy History of surgery Deficient knowledge of leg surgery History of hip surgery History of amputation of toe History of cataract surgery History of tonsillectomy Family History Father No problems noted. Mother Asthma Brother No problems noted. Brother No problems noted. Brother No problems noted. Sister No problems noted. Sister No problems noted. Social History Housing: Apartment Alcohol intake: current Alcohol intake frequency: does not drink Alcohol type: beer Patient Tobacco Use Status: Never used Tobacco e-Cigarette/Vaping Use: Never Used Second Hand Smoke Exposure: No Substance Use Type: Marijuana service: No Current occupational status: retired Cognitive needs: No Hearing needs: No Vision needs: Yes (Reading Glasses) Review of Systems Const All systems reviewed & are unremarkable except as noted in HPI and below ENT Denies dizziness Card Denies chest pain, Denies chest pain at rest, Denies chest pain with activity, Denies rapid heart rate, Denies pedal edema, Denies edema, Denies leg edema, Denies lightheadedness, Denies palpitations, Reports dyspnea, Reports dyspnea on exertion and Denies orthopnea Resp Denies cough, Reports dyspnea and Reports dyspnea on exertion GI Denies hematochezia and Denies change in stool character Musc Reports abnormal gait (limited by sob), Denies limited range of motion, Denies muscle cramps, Denies muscle weakness, Denies numbness, Denies radiating pain into limb, Denies stiffness and Denies tingling Neuro Reports abnormal gait (limited by sob), Denies dizziness, Denies numbness and Denies tingling Endo Denies palpitations Physical Exam Vital Signs: Last Vital Signs Pulse 73 02/16/23 13:34 BP 120/50 L 02/16/23 13:34 BMI result Body Mass Index 41.6 Const General: cooperative, healthy appearing, comfortable and no acute distress Orientation/consciousness: patient oriented x3 Neck Neck: Yes normal visual inspection Resp Effort & Inspection: normal respiratory effort Auscultation: clear to auscultation bilaterally, no crackles, no rales, no rhonchi and no wheezes Cardio Jugular venous distension: no JVD Rate: regular rate Rhythm: regular rhythm Heart sounds: S1 normal heart sound present, S2 normal heart sound present, no murmurs and no rubs Neuro General: patient oriented x3 Extrem General: Yes normal to inspection Psych Appearance: grossly normal Mental Status: mental status grossly normal Speech and movement: Normal speech and movement present Office Procedures EKG Details: Today, read by me, atrial flutter, variable AV block, rate 73, QTC 429 millisecond [id number], Complete Assessment & Plan Assessment & Plan (1) Shortness of breath: Code(s): R06.02 - Shortness of breath Plan: Cardiac testing for shortness of breath on 01/06/2023, echocardiogram showed normal study. Nuclear stress test done 01/25/2023 shows normal myocardial perfusion imaging. [facility] [place]08[place]23 with increased shortness of breath. Discharge note reviewed. No evidence of ACS, BNP elevated however not reliable given obesity. Chest x-ray was negative, CTA was negative for PE. He did have a small right greater than left pleural effusion with bilateral compressive atelectasis and diffuse ground-glass attenuation suggesting mild edema verses hypoaeration. They did treat him for congestive heart failure with IV Lasix. An echocardiogram showed EF 55-60%, no evidence of diastolic or systolic dysfunction. No recommends PFTs and sleep study as outpatient. At this time he continues to have shortness of breath with activity. He says this symptom is not new however it was worse at the time of his hospital admission. He denies any prior diagnosis of COPD. On examination his lungs are clear with good aeration down to his bases. No edema is noted. He does not appear fluid overloaded. Will hold off on the addition of diuretics. His shortness of breath had been labeled as Congestive heart failure however no echo findings to support. With his obesity he does have some degree of restrictive lung disease and he may have some COPD that is undiagnosed as of yet. His atrial fibrilla tion is not new and is seemingly asymptomatic. An EKG done today is showing a flutter, rate 73. Will check a pulmonary function test to evaluate for lung function. Will also check sleep study to evaluate for obstructive sleep apnea. Plan to refer to pulmonology if these tests are abnormal. Will call him with results. Cardiology follow-up 3 months, sooner if needed. (2) CHF (congestive heart failure): Code(s): I50.9 - Heart failure, unspecified Plan: As above (3) Paroxysmal atrial flutter: Code(s): I48.92 - Unspecified atrial flutter Plan: History of paroxysmal atrial fibrillation. Currently being treated with heart rate control using metoprolol. EKG today showing atrial flutter with controlled rate. He is on Eliquis for anticoagulation. No bleeding issues reported. No med changes made (4) FLORES (obstructive sleep apnea): Code(s): G47.33 - Obstructive sleep apnea (adult) (pediatric) Plan: He tells me he does have a history of having sleep apnea in the past and wore a mask many years ago. He has not had a test for this in over 10 years. He lik sandy does have sleep apnea but is unsure if he would use a mask again. Will start with a home sleep study. Plan to call him with results. (5) Morbid (severe) obesity due to excess calories: Code(s): E66.01 - Morbid (severe) obesity due to excess calories Plan: As above (6) Benign essential HTN: Code(s): I10 - Essential (primary) hypertension Plan: Well controlled at this time. No med changes made. (7) Hospital discharge follow-up: Code(s): Z09 - Encounter for follow-up examination after completed treatment for conditi ons other than malignant neoplasm Plan: [facility] admission 02/08- 02/12 for shortness of breath Plan Time spent on chart review, documentation, interview and assessment Orders: Orders PFT pulmonary function test Today I48.92 - Unspecified atrial flutter, R06.02 - Shortness of breath RT home sleep study Today G47.33 - Obstructive sleep apnea (adult) (pediatric) Coding Level of Care Code Est Pt Level 4 (62574) Diagnoses Shortness of breath R06.02 CHF (congestive heart failure) I50.9 Paroxysmal atrial flutter I48.92 FLORES (obstructive sleep apnea) G47.33 Morbid (severe) obesity due to excess calories E66.01 Benign essential HTN I10 Hospital discharge follow-up Z09 CPT Codes EKG - CPT: 44603-[id number], Complete ([id number]) Time Spent (min) 28
== END 2023-02-16 14:36 | disposition home or self-care (01) ==
PROVIDERS: PCP Internal Medicine; Visit Provider Nurse Practitioner Family
DX: R06.02 Shortness of breath (principal); I50.9 Heart failure, unspecified; I48.92 Unspecified atrial flutter; G47.33 Obstructive sleep apnea (adult) (pediatric); E66.01 Morbid (severe) obesity due to excess calories; I10 Essential (primary) hypertension; Z09 Encounter for follow-up examination after completed treatment for conditions other than malignant neoplasm
CPT/HCPCS: 93010; 99214

== ENCOUNTER → 2023-02-16 13:25 | Outpatient (BNVA) | payer OTHER, SELFPAY | PROVIDERS: PCP Internal Medicine; Visit Provider Nurse Practitioner Family | DX: I48.92 Unspecified atrial flutter (principal); I11.0 Hypertensive heart disease with heart failure; I50.9 Heart failure, unspecified; R06.02 Shortness of breath; G47.33 Obstructive sleep apnea (adult) (pediatric); E66.01 Morbid (severe) obesity due to excess calories; Z79.01 Long term (current) use of anticoagulants | CPT/HCPCS: 93005 ==

== ENCOUNTER 2023-03-17 11:28 | Outpatient (AMB) | payer OTHER, SELFPAY ==
--- NOTE | 2023-03-17 11:34 | MHC.PC.OV ---
Vital Signs 03/17/23 11:36 Height 5 ft 7 in Weight 119.351 kg BMI 41.2 BP 110/60 Blood Pressure Location Lt brachial Position Sitting Pulse 71 Pulse Source Pulse Oximeter Pulse Oximetry (%) 97 Oxygen Delivery Method Room Air Intake Visit Reasons: [facility] 02/08-02/12 Shortness of Breath Intake Note: Patient is here for hospital discharge follow up. Patient was [place] [facility] [place]. Manager Social Media Required: No [employer] Inspector: Not Required per policy Accompanied by: Self / Same As Patient Allergies No Known Allergies [NO KNOWN ALLERGIES] Allergy (Unknown, Verified 03/18/23 11:03) unknown Tobacco use date assessed: 03/17/23 Fall risk assessment: No Falls in past year Last assessed Fall Risk: 03/17/23 Dental Screening Dental Screen Date: 03/17/23 Did you have a dental visit in the last 12 months?: No Did you have a dental problem in the last 6 months where you did not have access to dental care?: No Was dental information given to patient?: No HPI HPI Comments History of Present Illness Details 67 year old male with history of paroxysmal atrial fibrillation anticoagulated with eliquis s/p cardioversion, htn, hld, insulin dependent type 2 diabetes, hypothyroidism, hx etoh use disorder, FLORES not on CPAP, who is morbidly obese with BMI >41 presents to the office for post hospital discharge follow up. Discharge medications reviewed and reconciled. Pt was admitted to [facility] from 02/08-02/12 due to acute respiratory distress with acute hypoxemic respiratory failure requiring supplemental O2 2-5L. CXR negative for any acute cardiopulmonary abnormality. Subsequent CTA chest negative for PE but did show small b/l pleural effusions R>L with adjacent bll compressive atelectasis. There was also diffuse groundglass attentuation throughout lung parenchyma possibly representing mild edema vs hypoaeration. Trops were flat, BNP elevated at 500 thoguh possibly unreliable given obesity. Initially concern for CHF exacerbation. No known history HF, with echo performed at [facility] showing normal LV systolic function wtih EF 55-60% with normal filling patterns. He was started on lasix 40mg but became orthostatic so fluid overload less likely, but pt did experience some symptomatic improvement with diuresis. It was also felt there may be some underlying COPD vs inflammatory process vs environmental exposure complicated by obesity hyperventilation syndrome and FLORES. Labs during admission otherwise unremarkable except for slight bump in creat following IV diuresis and hypomagnesemia which was repleted. Today he tells me he is still short of breath. This has been ongoing for a year and worsening. He states he is unable to walk 50 ft without becoming dyspneic. He denies any associated palpitations or chest pain. He follows [facility] cardiology and recently had nuclear stress test that was normal. No evidence of HF noted on echo cardiogram, though clinically seems HF seems possible. Afib is controlled. He has no history of cigarette smoking though did previously smoke MJ but quit several years ago. He is morbidly obese with significant central obesity. Would like to lose weight but struggles with activity. Feels he does follow a healthy diet. Fasting glucose levels around 160. He also has diagnosed FLORES but has not attempted CPAP in several years. States he was unable to tolerate the mask. [facility] Medical History (Updated 03/19/23 @ 12:24 by INA Hair) Foot ulcer, left FLORES (obstructive sleep apnea) History of cardioversion Hiatal hernia On anticoagulant therapy On beta nga at home Fecal incontinence AA (alcohol abuse) Type 2 diabetes mellitus with diabetic autonomic (poly)neuropathy B12 deficiency Benign prostatic hyperplasia without lower urinary tract symptoms GERD (gastroesophageal reflux disease) Hypercholesterolemia Benign essential HTN Body mass index [BMI] 38.0-38.9, adult Morbid (severe) obesity due to excess calories Anxiety Paroxysmal atrial fibrillation DM (diabetes mellitus) type II uncontrolled with eye manifestation Surgical History H/O left inguinal hernia repair History of esophagogastroduodenoscopy (EGD) Hx of colonoscopy History of surgery Deficient knowledge of leg surgery History of hip surgery History of amputation of toe History of cataract surgery History of tonsillectomy Family History Father No problems noted. Mother Asthma Brother No problems noted. Brother No problems noted. Brother No problems noted. Sister No problems noted. Sister No problems noted. Social History Housing: Apartment Alcohol intake: current Alcohol intake frequency: does not drink Alcohol type: beer Patient Tobacco Use Status: Never used Tobacco e-Cigarette/Vaping Use: Never Used Second Hand Smoke Exposure: No Substance Use Type: Marijuana service: No Current occupational status: retired Cognitive needs: No Hearing needs: No Vision needs: Yes (Reading Glasses) Questionnaire PHQ-9 Over the last 2 weeks, how often have you been bothered by any of the following problems? 1. Little interest or pleasure in doing things: several days 2. Feeling down, depressed, or hopeless: nearly every day 3. Trouble falling or staying asleep, or sleeping too much: nearly every day 4. Feeling tired or having little energy: nearly every day 5. Poor appetite or overeating: not at all 6. Feeling bad about yourself - or that you are a failure or have let yourself or your family down: several days 7. Trouble concentrating on things, such as reading the newspaper or watching television: several days 8. Moving or speaking so slowly that other people could have noticed. Or the opposite - being so fidgety or restless that you have been moving around a lot more than usual: not at all 9. Thoughts that you would be better off or of hurting yourself in some way: more than half the days Total score: 14 Source: Developed by Drs. Erik Astorga, Neris Aragon, Jacob Hernandez and colleagues, with an educational lore from [employer]. Thrive Questionnaire Date Thrive assessed: 03/17/23 I am a: Patient What is your living situation today?: I have a steady place to live Within the past 12 months, did the food you bought not last and you didn't have the money to get more?: Never true Within the past 12 months, did you worry whether your food would run out before you got money to buy more?: Never true Do you have trouble paying for medicines?: No Do you have trouble getting transportation to medical appointments?: No Do you have trouble paying your heating and electricity bill?: No Do you have trouble taking care of your child, family member or friend?: No Do you have trouble with day-to-day activities such as bathing, preparing meals, shopping, managing finances, etc.?: No Are you currently unemployed and looking for a job?: No Are you interested in more education?: No Currently or been in a relationship where the following occur: no concerns reported AUDIT C Alcohol Use Questionnaire (AUDIT-C) 1. How often do you have a drink containing alcohol?: Never Total Score: 0 ZACHERY-7 AMB Questionnaire ZACHERY-7 Date ZACHERY - 7 assessed: 03/17/23 Feeling nervous, anxious, or on edge: 0 = Not at all Not being able to stop or control worryin = Not at all Worrying too much about different things: 0 = Not at all Trouble relaxin = Not at all Being so restless that it is hard to sit still: 0 = Not at all Becoming easily annoyed or irritable: 0 = Not at all Feeling afraid as if something awful might happen: 0 = Not at all Total ZACHERY-7 score (0-4 normal; 5-9 mild; 10-14 moderate; 15-21 severe): 0 Source: Developed by Drs. Erik Astorga, Neris Aragon, Jacob Hernandez and colleagues, with an educational lore from [employer]. Review of Systems Const All systems reviewed & are unremarkable except as noted in HPI and below Physical exam (Primary Care) Vital Signs: Last Vital Signs Pulse 71 03/17/23 11:36 BP 110/60 03/17/23 11:36 Pulse Ox 97 03/17/23 11:36 Oxygen Delivery Method Room Air 03/17/23 11:36 BMI result Body Mass Index 41.2 Tobacco/Smoking Status: Tobacco use Status Tobacco use date assessed 03/17/23 03/17/23 11:45 Patient Tobacco Use Status Never used Tobacco 03/17/23 11:45 e-Cigarette/Vaping Use Never Used 03/17/23 11:45 PHQ-9: PHQ-9 Score PHQ-9: Total score 14 03/19/23 11:49 Thrive Assessment: Date of Thrive Assessment Date Thrive assessed 03/17/23 03/17/23 11:45 Currently or been in a relationship where the following occur: no concerns reported Const Other: Constitutional - Awake and Alert, No apparent distress Eyes - PERRLA, EOMI Cardiovascular - S1S2, RRR, No edema Respiratory - Normal lung expansion, Normal respiratory effort, No respiratory distress, CTA bilaterally Gastrointestinal - morbidly obese abdomen. NT / ND; +BS; No rebound or guarding Extremities - R sided calf tenderness bilaterally with slight swelling, no erythema Skin - Warm/Dry Neurological - Alert & oriented x3 Psychological - Appropriate affect Results AMB Hemoglobin A1c AMB Hemoglobin A1c 8.7 % Last Edit by LIEN Gonsalez on 03/17/23 12:11 Results Reviewed Results Reviewed: Laboratory Last Values Hgb A1c (Clinic) 8.7 % (4.0-6.0) H 03/17/23 11:59 cbc, bmp, cxr, cta chest, echo [facility], nuclear stress test [facility], cardiology office note, discharge summary, a1c Assessment and Plan Assessment & Plan (1) Shortness of breath: Code(s): R06.02 - Shortness of breath Plan: Etiology unclear. Possible underlying COPD with obesity hypoventilation syndrome with FLORES. Echo from [facility] reviewed without evidence of HF or pulmonary hypertension. No PE on CTA chest, but showed compressive atelectasis with small bilateral pleural effusions but no evidence of CHF. There were also diffuse groundglass opacities. REcent nuclear stress test was normal. Afib is well controlled. Discussed the importance of managing FLORES wtih CPAP compliance. He expresses understanding. He referred for home sleep study. Will also refer for PFT to evaluate for any underlying chronic lung disease. Discussed the role of obesity in hypoventilation resulting in significant dyspnea. Encouraged weight loss efforts. Given duration of symptoms significantly limiting patient's functioning/quality of life with negative cardiac workup and unclear etiology, he is also referred to pulmonology for further evaluation and management. (2) Obesity hypoventilation syndrome: Code(s): E66.2 - Morbid (severe) obesity with alveolar hypoventilation Plan: See above. Weight loss efforts encouraged. (3) DM (diabetes mellitus) type II uncontrolled with eye manifestation: Comment: IDDM Code(s): E11.39 - Type 2 diabetes mellitus with other diabetic ophthalmic complication; E11.65 - Type 2 diabetes mellitus with hyperglycemia Plan: POC hgb a1c in office slightly improved from last visit, but still uncontrolled at 8.4%. Discussed the importance of diabetes management/glucose control to prevent complications, some of which he is already experiencing. Fasting glucose is not at goal around 160, goal being between 90-130. Recommended trial of trulicity 0.75mg weekly to help manage glucose levels and possibly also help with weight loss which could help with his sob. Continue lantus 50 units nightly, metformin 100mg bid, and actos. Discussed compliance with diabetic diet. Pt would likely benefit from nutrition/dm education and referral to community navigation is placed. (4) Morbid obesity: Code(s): E66.01 - Morbid (severe) obesity due to excess calories Plan: Weight loss efforts encouraged. Ability to exercise is limited due to above. Discussed importance of healthy diet lower in calories especially sugars, refined carbohydrates, and processed foods. Prescribed trulicity as above which may also aid in weight loss. Weight loss will also help improve obesity related hypoventilation which is likely contributing to symptoms above. (5) Tenderness of right calf: Code(s): M79.661 - Pain in right lower leg Plan: Referred for venous duplex RLE. DVT less likely given anticoagulation, but not impossible, so will evaluate further. No PE noted on CTA chest from [facility] Orders: Orders AMB Hemoglobin A1c 03/17/23 E11.39 - Type 2 diabetes mellitus with other diabetic ophthalmic complication, E11.65 - Type 2 diabetes mellitus with hyperglycemia PFT pulmonary function test 03/17/23 R06.02 - Shortness of breath RT home sleep study 03/17/23 E11.39 - Type 2 diabetes mellitus with other diabetic ophthalmic complication, E11.65 - Type 2 diabetes mellitus with hyperglycemia, E66.2 - Morbid (severe) obesity with alveolar hypoventilation, R06.02 - Shortness of breath US venous duplex LE RT Today M79.661 - Pain in right lower leg Referrals Nurse Navigator Referral E11.39 - Type 2 diabetes mellitus with other diabetic ophthalmic complication, E11.65 - Type 2 diabetes mellitus with hyperglycemia, E66.01 - Morbid (severe) obesity due to excess calories Pulmonology Referral E66.2 - Morbid (severe) obesity with alveolar hypoventilation, G47.33 - Obstructive sleep apnea (adult) (pediatric), R06.02 - Shortness of breath Medications: New dulaglutide (Trulicity) 0.75 mg (0.5 mL) subcut QWEEK 2 mL 2RF Coding Level of Care Code Est Pt Level 5 (73689) Diagnoses Shortness of breath R06.02 Obesity hypoventilation syndrome E66.2 DM (diabetes mellitus) type II uncontrolled with eye manifestation E11.39; E11.65 Morbid obesity E66.01 Tenderness of right calf M79.661 Time Spent (min) 45 Comment reviewing as above, time interviewing/exam pt, documentation time
[2023-03-17 11:36] VITALS: BP 110/60; PULSE 71; O2SAT 97; BMI 41.2
== END 2023-03-17 12:27 | disposition home or self-care (01) ==
PROVIDERS: PCP Internal Medicine; Visit Provider Physician Assistant
DX: E11.39 Type 2 diabetes mellitus with other diabetic ophthalmic complication (principal); E11.65 Type 2 diabetes mellitus with hyperglycemia
CPT/HCPCS: 83036; 99215

== ENCOUNTER 2023-03-18 10:38 | Outpatient (AMB) | payer OTHER, SELFPAY ==
--- NOTE | 2023-03-18 11:01 | MHC.PC.OV ---
Vital Signs 03/18/23 11:03 Height 5 ft 7 in Weight 254 lb BMI 39.8 BP 138/70 Blood Pressure Location Rt brachial Position Sitting Pulse 85 Pulse Source Pulse Oximeter Pulse Oximetry (%) 96 Oxygen Delivery Method Room Air Intake Visit Reasons: 6mth f/u Intake Note: Patient is here to follow up on DM, CHF, NICOLLE, HTN, FLORES . 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 policy Accompanied by: Self / Same As Patient Allergies No Known Allergies [NO KNOWN ALLERGIES] Allergy (Unknown, Verified 03/23/23 11:16) unknown Medication List - Last Reconciled 03/23/23 by Abe Yeager MD apixaban (Eliquis) 5 mg PO BID 90 days blood sugar diagnostic Test 3 times daily flioyih-dsxcmxkqx-sdws 1 tab PO DAILY cholecalciferol (vitamin D3) 25 mcg PO DAILY citalopram 10 mg PO DAILY dulaglutide (Trulicity) 0.75 mg (0.5 mL) subcut QWEEK folic acid 1 mg PO DAILY insulin glargine (Lantus Solostar U-100 Insulin) 50 units (0.5 mL) subcut BEDTIME levothyroxine (Synthroid) 25 mcg PO DAILY metformin 1,000 mg PO BID metoprolol tartrate 100 mg PO BID omeprazole 20 mg PO QAM pen needle, diabetic As directed pen needle, diabetic (Ultra-Thin II Insulin Pen [place]) 1 per day pioglitazone 30 mg PO DAILY simvastatin 20 mg PO QPM tramadol 50 mg PO DAILY PRN Tobacco use date assessed: 03/17/23 HPI 6mth f/u HPI Details 67-year-old male presents to the office for a sick visit. Patient has not been feeling well for the past week or so. Sugars have been variable. He has not been compliant with his medications. Not checking his blood sugars frequently occasional dizziness. No no nausea or vomiting. [facility] Medical History (Updated 03/19/23 @ 12:24 by INA Hair) Foot ulcer, left FLORES (obstructive sleep apnea) History of cardioversion Hiatal hernia On anticoagulant therapy On beta nga at home Fecal incontinence AA (alcohol abuse) Type 2 diabetes mellitus with diabetic autonomic (poly)neuropathy B12 deficiency Benign prostatic hyperplasia without lower urinary tract symptoms GERD (gastroesophageal reflux disease) Hypercholesterolemia Benign essential HTN Body mass index [BMI] 38.0-38.9, adult Morbid (severe) obesity due to excess calories Anxiety Paroxysmal atrial fibrillation DM (diabetes mellitus) type II uncontrolled with eye manifestation Surgical History H/O left inguinal hernia repair History of esophagogastroduodenoscopy (EGD) Hx of colonoscopy History of surgery Deficient knowledge of leg surgery History of hip surgery History of amputation of toe History of cataract surgery History of tonsillectomy Family History Father No problems noted. Mother Asthma Brother No problems noted. Brother No problems noted. Brother No problems noted. Sister No problems noted. Sister No problems noted. Social History Housing: Apartment Alcohol intake: current Alcohol intake frequency: does not drink Alcohol type: beer Patient Tobacco Use Status: Never used Tobacco e-Cigarette/Vaping Use: Never Used Second Hand Smoke Exposure: No Substance Use Type: Marijuana service: No Current occupational status: retired Cognitive needs: No Hearing needs: No Vision needs: Yes (Reading Glasses) Questionnaire Thrive Questionnaire Date Thrive assessed: 03/17/23 ZACHERY-7 AMB Questionnaire ZACHERY-7 Date ZACHERY - 7 assessed: 03/17/23 Source: Developed by Drs. Erik Astorga, Neris Aragon, Jacob Hernandez and colleagues, with an educational lore from [employer]. Physical exam (Primary Care) Vital Signs: Last Vital Signs Pulse 85 03/18/23 11:03 BP 138/70 03/18/23 11:03 Pulse Ox 96 03/18/23 11:03 Oxygen Delivery Method Room Air 03/18/23 11:03 BMI result Body Mass Index 39.8 Tobacco/Smoking Status: Tobacco use Status Tobacco use date assessed 03/17/23 03/18/23 11:01 Patient Tobacco Use Status Never used Tobacco 03/18/23 11:01 e-Cigarette/Vaping Use Never Used 03/18/23 11:01 Thrive Assessment: Date of Thrive Assessment Date Thrive assessed 03/17/23 03/18/23 11:01 Const General: cooperative and healthy appearing Nutritional Appearance: well nourished Orientation/consciousness: patient oriented x3 Limitations: no limitations HENMT Head: Yes normal to inspection Eyes General: appearance normal, both eyes and all related structures Neck Neck: Yes normal visual inspection Chest Chest palpation & inspection: normal palpation of entire chest wall Resp Effort & Inspection: normal respiratory effort Neuro General: patient oriented x3 Results AMB Random Glucose (hemocue) AMB Random Glucose (hemocue) 139 mg/dL Last Edit by LIEN Gonsalez on 03/18/23 11:22 Results Reviewed Results Reviewed: Laboratory Last Values Random Glu (Clinic) 139 mg/dL 03/18/23 11:20 Assessment and Plan Assessment & Plan (1) Diabetes mellitus with hyperglycemia: Code(s): E11.65 - Type 2 diabetes mellitus with hyperglycemia Qualifiers: Diabetes mellitus type: type 2 Diabetes mellitus half-way insulin use: with salvage determiner use Qualified Code(s): E11.65 - Type 2 diabetes mellitus with hyperglycemia; 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 Patient was encouraged to be compliant with medications. Check blood sugars regularly. Orders: Orders AMB Random Glucose (hemocue) 03/18/23 E11.65 - Type 2 diabetes mellitus with hyperglycemia Coding Level of Care Code Est Pt Level 3 (73597) Diagnoses Type 2 diabetes mellitus with hyperglycemia, with long-term current use of insulin E11.65; Z79.4 Diabetes mellitus type: type 2 Diabetes mellitus half-way insulin use: with salvage determiner use
[2023-03-18 11:03] VITALS: BP 138/70; PULSE 85; O2SAT 96; BMI 39.8
== END 2023-03-18 12:00 | disposition home or self-care (01) ==
PROVIDERS: PCP Internal Medicine; Visit Provider Internal Medicine
DX: E11.65 Type 2 diabetes mellitus with hyperglycemia (principal)
CPT/HCPCS: 82948; 99213

== ENCOUNTER 2023-04-12 13:26 | Outpatient (REF) | payer OTHER, SELFPAY ==
--- NOTE | ~2023-04-12 | US_ITS ---
EXAMINATION: US VENOUS ULTRASOUND WITH DOPPLER LOWER EXTREMITY, RIGHT CLINICAL INFORMATION: Right leg pain COMPARISON: None available. TECHNIQUE: Ultrasound of the deep veins is performed from the hip to the calf with compression sonography and color and pulse Doppler assessment. Spectral analysis with color-flow imaging is performed. FINDINGS: There is normal venous compression and respiratory variation. The visualized common femoral vein, superficial femoral vein, profunda femoral vein, popliteal vein, and the posterior tibial and peroneal veins shows no evidence of deep venous thrombosis. The contralateral common femoral vein demonstrates normal respiratory variation. US/US venous duplex LE RT IMPRESSION: No DVT demonstrated in the right lower extremity.
== END 2023-04-12 13:27 | disposition home or self-care (01) ==
LOC: HO.US 13:26
PROVIDERS: PCP Internal Medicine; Visit Provider Physician Assistant
DX: M79.661 Pain in right lower leg (principal)
CPT/HCPCS: 93971

== ENCOUNTER 2023-09-28 09:09 | Outpatient (AMB) | payer SELFPAY ==
--- NOTE | 2023-09-28 09:15 | MHC.OFFVIS ---
Vital Signs 09/28/23 09:17 Height 5 ft 7 in Weight 220 lb 7.396 oz BMI 34.5 BP 100/62 Blood Pressure Location Lt brachial Position Sitting Pulse 57 Pulse Source Pulse Oximeter Intake Visit Reasons: overdue f/up s/p holter [facility] [employer] Supervisor Required: No Allergies No Known Allergies [NO KNOWN ALLERGIES] Allergy (Unknown, Verified 09/28/23 09:20) unknown Medication List - Last Reconciled 09/28/23 by FRANCISCA Lopez apixaban (Eliquis) 5 mg PO BID 90 days blood sugar diagnostic Test 3 times daily onfaeoh-deyyrpdil-zhms 1 tab PO DAILY cholecalciferol (vitamin D3) 25 mcg PO DAILY citalopram 10 mg PO DAILY dulaglutide (Trulicity) 0.75 mg (0.5 mL) subcut QWEEK folic acid 1 mg PO DAILY insulin glargine (Lantus Solostar U-100 Insulin) 50 units (0.5 mL) subcut BEDTIME levothyroxine (Synthroid) 25 mcg PO DAILY metformin 1,000 mg PO BID metoprolol tartrate 100 mg PO BID omeprazole 20 mg PO QAM pen needle, diabetic As directed pen needle, diabetic (Ultra-Thin II Insulin Pen [place]) 1 per day pioglitazone 30 mg PO DAILY simvastatin 20 mg PO QPM tramadol 50 mg PO DAILY PRN HPI HPI overdue f/up s/p holter [facility]: Details: Zack is a 67-year-old male with past medical history paroxysmal atrial flutter and atrial fibrillation. He has failed flecainide in the past, Multaq lead to bradycardia requiring atropine in the past. He has failed cardioversion says in the. He is now on metoprolol for heart rate control, and Eliquis for anticoagulation. Today he reports that he was seen at [facility] in June following a syncopal event. He describes having a few events around that time. He had been experiencing lightheadedness with quick position changes and standing. At [facility] he was found to have orthostatic hypotension and treated with IV fluids. He has had no recurrent syncope since then and has been trying to increase his fluid intake. He says his breathing has been stable. No PND, orthopnea or edema. No chest discomfort at rest or with activity, no heart palpitations. He is currently incarcerated and presents to this visit with 2 officers. He says he has been taking his medications as prescribed. There is a medical provider at the prison who sees him periodically. [facility] Medical History Foot ulcer, left FLORES (obstructive sleep apnea) History of cardioversion Hiatal hernia On anticoagulant therapy On beta nga at home Fecal incontinence AA (alcohol abuse) Type 2 diabetes mellitus with diabetic autonomic (poly)neuropathy B12 deficiency Benign prostatic hyperplasia without lower urinary tract symptoms GERD (gastroesophageal reflux disease) Hypercholesterolemia Benign essential HTN Body mass index [BMI] 38.0-38.9, adult Morbid (severe) obesity due to excess calories Anxiety Paroxysmal atrial fibrillation DM (diabetes mellitus) type II uncontrolled with eye manifestation Surgical History H/O left inguinal hernia repair History of esophagogastroduodenoscopy (EGD) Hx of colonoscopy History of surgery Deficient knowledge of leg surgery History of hip surgery History of amputation of toe History of cataract surgery History of tonsillectomy Family History Father No problems noted. Mother Asthma Brother No problems noted. Brother No problems noted. Brother No problems noted. Sister No problems noted. Sister No problems noted. Social History Housing: Apartment Alcohol intake: current Alcohol intake frequency: does not drink Alcohol type: beer Patient Tobacco Use Status: Never used Tobacco e-Cigarette/Vaping Use: Never Used Second Hand Smoke Exposure: No Substance Use Type: Marijuana service: No Current occupational status: retired Cognitive needs: No Hearing needs: No Vision needs: Yes (Reading Glasses) Review of Systems Const All systems reviewed & are unremarkable except as noted in HPI and below ENT Reports dizziness Card Denies chest pain, Denies chest pain at rest, Denies chest pain with activity, Denies rapid heart rate, Denies pedal edema, Denies edema, Denies leg edema, Denies lightheadedness, Denies palpitations, Denies dyspnea, Denies dyspnea on exertion and Denies orthopnea Resp Denies cough, Denies dyspnea and Denies dyspnea on exertion GI Denies hematochezia and Denies change in stool character Musc Denies abnormal gait, Denies limited range of motion, Denies muscle cramps, Denies muscle weakness, Denies numbness, Denies radiating pain into limb, Denies stiffness and Denies tingling Neuro Denies abnormal gait, Reports dizziness, Denies numbness and Denies tingling Endo Denies palpitations Physical Exam Vital Signs: Last Vital Signs Pulse 57 09/28/23 09:17 BP 100/62 09/28/23 09:17 BMI result Body Mass Index 34.5 Const General: cooperative, healthy appearing, comfortable and no acute distress Orientation/consciousness: patient oriented x3 Neck Neck: Yes normal visual inspection Resp Effort & Inspection: normal respiratory effort Auscultation: clear to auscultation bilaterally, no crackles, no rales, no rhonchi and no wheezes Cardio Jugular venous distension: no JVD Rate: regular rate Rhythm: regular rhythm Heart sounds: S1 normal heart sound present, S2 normal heart sound present, no murmurs and no rubs Neuro General: patient oriented x3 Extrem General: Yes normal to inspection, No no pedal edema and No calf tenderness Psych Appearance: grossly normal Mental Status: mental status grossly normal Speech and movement: Normal speech and movement present Assessment & Plan Assessment & Plan (1) Paroxysmal atrial flutter: Code(s): I48.92 - Unspecified atrial flutter Category: Medical Plan: History of paroxysmal atrial fibrillation. Currently being treated with heart rate control using metoprolol. EKG done during recent [facility] evaluation showed normal sinus rhythm. He did have a Holter monitor done as ordered by the provider at the prison, results reviewed by me showed sinus rhythm, no atrial fibrillation, average heart rate in the 80s. Previously had been on metoprolol as high as 100 mg b.i.d.. At some point his metoprolol dose was reduced and according to the paperwork with him it looks like he has been on metoprolol tartrate 25 mg b.i.d.. With his low blood pressure readings this is appropriate. He denies any issues with heart palpitations. He is on Eliquis for anticoagulation and denies any bleeding issues. Recent labs done at [facility] and in our system. No med changes made. Cardiology follow-up in 6 months, sooner if needed. (2) CHF (congestive heart failure): Code(s): I50.9 - Heart failure, unspecified Category: Medical Plan: No clinical signs of heart failure on examination today. His last echocardiogram was done 01/06/2023 which showed normal study. A pharmacological nuclear stress test was done on 01/25/2023 showing no definitive findings suggesting ischemia or infarct. For his shortness of breath on last visit a sleep study and pulmonary function test was ordered however patient did not complete these tests. He is currently incarcerated. (3) Benign essential HTN: Code(s): I10 - Essential (primary) hypertension Category: Medical Plan: History of hypertension. [facility] evaluation in June for syncope and treated for orthostatic hypotension. Since then he has not had recurrent syncope. He has had lightheadedness with quick position changes. Blood pressure is low today at 100/62. Recheck done by me, sitting 88/40, standing 92/60. Not orthostatic at this time however hypotensive. Informed him of this. Will have him continue on the same metoprolol which is 25 mg b.i.d. to help prevent recurrent PAF. Instructed to increase his fluid intake which he has not been able to do easily in his current living situation. Recommended that he drink greater than 48 oz daily, this information was written on his paperwork for the prison. Use caution when sitting to standing, sit down if feeling lightheaded. (4) FLORES (obstructive sleep apnea): Code(s): G47.33 - Obstructive sleep apnea (adult) (pediatric) Category: Medical Plan: He tells me he does have a history of having sleep apnea in the past and wore a mask many years ago. He has not had a test for this in over 10 years. He likely does have sleep apnea but is unsure if he would use a mask again. Home sleep study was ordered last visit. Not completed, as above (5) Morbid (severe) obesity due to excess calories: Code(s): E66.01 - Morbid (severe) obesity due to excess calories Category: Medical Plan: His weight is down 24 lb since his an office visit in March. Plan Time spent on chart review, documentation, interview and assessment Coding Level of Care Code Est Pt Level 4 (74097) Diagnoses Paroxysmal atrial flutter I48.92 CHF (congestive heart failure) I50.9 Benign essential HTN I10 FLORES (obstructive sleep apnea) G47.33 Morbid (severe) obesity due to excess calories E66.01 Time Spent (min) 30
[2023-09-28 09:17] VITALS: BP 100/62; PULSE 57; BMI 34.5
== END 2023-09-28 10:06 | disposition home or self-care (01) ==
PROVIDERS: PCP Internal Medicine; Visit Provider Nurse Practitioner Family
DX: I48.92 Unspecified atrial flutter (principal); I50.9 Heart failure, unspecified; I10 Essential (primary) hypertension; G47.33 Obstructive sleep apnea (adult) (pediatric); E66.01 Morbid (severe) obesity due to excess calories
CPT/HCPCS: 99214

== ENCOUNTER → 2023-09-28 09:09 | Outpatient (BNVA) | payer SELFPAY | PROVIDERS: PCP Internal Medicine; Visit Provider Nurse Practitioner Family | DX: I48.92 Unspecified atrial flutter (principal); I11.0 Hypertensive heart disease with heart failure; I50.9 Heart failure, unspecified; E66.01 Morbid (severe) obesity due to excess calories; Z68.34 Body mass index [BMI] 34.0-34.9, adult; G47.33 Obstructive sleep apnea (adult) (pediatric); Z79.899 Other long term (current) drug therapy | CPT/HCPCS: 99212 ==

== ENCOUNTER 2023-10-07 08:53 | Outpatient (AMB) | payer SELFPAY ==
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
[2023-10-07 08:57] VITALS: BMI 34.5
== END 2023-10-07 09:29 | disposition home or self-care (01) ==
PROVIDERS: PCP Internal Medicine; Visit Provider Surgery Vascular Surgery
DX: I73.9 Peripheral vascular disease, unspecified (principal); I65.23 Occlusion and stenosis of bilateral carotid arteries
CPT/HCPCS: 99204

== ENCOUNTER → 2023-10-07 08:53 | Outpatient (BNVA) | payer MEDICAID, SELFPAY | PROVIDERS: PCP Internal Medicine; Visit Provider Surgery Vascular Surgery | DX: I73.9 Peripheral vascular disease, unspecified (principal); I65.23 Occlusion and stenosis of bilateral carotid arteries; Z89.422 Acquired absence of other left toe(s); Z79.01 Long term (current) use of anticoagulants | CPT/HCPCS: 99202 ==

== ENCOUNTER 2024-01-24 13:11 | Outpatient (REF) | payer OTHER, SELFPAY ==
--- NOTE | ~2024-01-24 | US_ITS ---
EXAMINATION: Noninvasive assessment of the bilateral lower extremities with ARTERIAL DUPLEX and ANKLE BRACHIAL INDICES (ABIs). CLINICAL INFORMATION: Peripheral vascular disease TECHNIQUE: Duplex Doppler techniques with waveform analysis and measurement of velocities in the bilateral common femoral, profunda femoris, superficial femoral, popliteal and tibial arteries were performed. Additionally, ankle pulse volume recordings, ankle pressure measurements and ankle brachial indices were obtained of the lower extremity arterial system bilaterally. The study was performed only at rest. COMPARISON: None FINDINGS: DIRECT DUPLEX DOPPLER FINDINGS: RIGHT LEG: Common femoral artery: 82.3 cm/s, phasicity: Biphasic Profunda femoris artery: 59.1 cm/s, phasicity: Biphasic Superficial femoral artery (proximal): 76.3 cm/s, phasicity: Biphasic Superficial femoral artery (mid): 74.3 cm/s, phasicity: Biphasic. Arterial calcinosis Superficial femoral artery (distal): 68.5 cm/s, phasicity: Biphasic. Arterial calcinosis Popliteal artery: 99.4 cm/s, phasicity: Biphasic. Arterial calcinosis with focal calcified plaque Posterior tibial artery: Occluded in the mid and distal segments, arterial calcinosis Peroneal artery: 65.3 cm/s, phasicity: Biphasic Anterior tibial artery: 55.6 cm/s, phasicity: Biphasic Dorsalis pedis artery: 18.6 cm/s, phasicity:Monophasic LEFT LEG: Common femoral artery: 78.8 cm/s, phasicity: Biphasic. Mild calcified plaque Profunda femoris artery: 55.3 cm/s, phasicity: Biphasic Superficial femoral artery (proximal): 96.7 cm/s, phasicity: Biphasic. Arterial calcinosis Superficial femoral artery (mid): 80.1 cm/s, phasicity: Biphasic. Arterial calcinosis Superficial femoral artery (distal): 54.9 cm/s, phasicity: Triphasic. Arterial calcinosis Popliteal artery: 56.5 cm/s, phasicity: Triphasic Arterial calcinosis Posterior tibial artery: Distal segment is occluded Peroneal artery: Mid and distal segments are occluded Anterior tibial artery: 59.3 cm/s, phasicity: Monophasic Dorsalis pedis artery: Occluded ANKLE-BRACHIAL INDEX: Right: 1.6 Left: Inaudible ANKLE PRESSURES: Right: PT 142, DP 200 Left: PT Inaudible, DP Inaudible ANKLE PVR WAVEFORMS: Right: Abnormal Left: Abnormal US/US arterial duplex BI w/ GLO IMPRESSION: RIGHT LEG: Arterial calcinosis seen throughout the right lower extremity. There is occlusion of the mid and distal posterior tibial artery with patent flow of the tibial artery and dorsalis pedis artery. Supranormal ankle-brachial index due to arterial calcinosis LEFT LEG: Arterial calcinosis seen throughout the left lower extremity. There is occlusion of the distal posterior tibial artery, mid and distal peroneal artery and dorsalis pedis artery with patent flow in the anterior tibial artery. Electronically signed by: Remigio Crzu MD 02/15/2024 12:31 PM [facility]
--- NOTE | ~2024-01-24 | US_ITS ---
EXAMINATION: US EXTRACRANIAL CAROTID DUPLEX, BILATERAL CLINICAL INFORMATION: Near syncope COMPARISON: None available. TECHNIQUE: Real-time ultrasound and Doppler techniques (integrating B-mode 2-D vascular images, Doppler spectral analysis and color-flow Doppler imaging) were utilized to interrogate the extracranial carotid arteries, the vertebral arteries and proximal subclavian arteries bilaterally. The degree of stenosis is determined by criteria similar to NASCET. FINDINGS: Right Side: 1. There is dense heavily calcified atherosclerotic plaque seen in the bifurcation/proximal ICA region causing complete posterior acoustic shadowing. The segment of vessel is unable to be evaluated. 2. The common carotid artery PSV proximally is 98.5 cm/s and distally 37.0 cm/s. 3. The proximal internal carotid artery velocities are 83.9 cm/s systolic and 24.0 cm/s diastolic. 4. The proximal external carotid artery PSV is 78.0 cm/s. 5. The vertebral artery shows antegrade flow. 6. The subclavian artery waveforms are normal. Left Side: 1. There is mild to moderate atherosclerotic plaque seen in the bifurcation/proximal ICA region. 2. The common carotid artery PSV proximally is 93.0 cm/s and distally 65.7 cm/s. 3. The proximal internal carotid artery velocities are 84.5 cm/s systolic and 20.9 cm/s diastolic. 4. The proximal external carotid artery PSV is 110 cm/s. 5. The vertebral artery shows antegrade flow. 6. The subclavian artery waveforms are normal. US/US carotid duplex BI IMPRESSION: 1. RIGHT: Densely calcified plaque in the carotid bulb and proximal internal carotid artery with nondiagnostic evaluation of the segment due to acoustic shadowing. The visualized segments of the internal carotid artery demonstrate normal velocities corresponding to a 0-49% stenosis 2. LEFT: Minimal, non-hemodynamically significant stenosis of the proximal left internal carotid artery corresponding to a 0-49% stenosis by velocity criteria. Electronically signed by: Remigio Cruz MD 02/16/2024 08:[address] [facility]
== END 2024-01-24 13:12 | disposition home or self-care (01) ==
LOC: HO.US 13:11
PROVIDERS: PCP Internal Medicine; Visit Provider Surgery Vascular Surgery
DX: I65.23 Occlusion and stenosis of bilateral carotid arteries (principal)
CPT/HCPCS: 93880; 93925

== ENCOUNTER 2024-02-15 09:58 | Outpatient (AMB) | payer OTHER, SELFPAY ==
--- NOTE | 2024-02-15 10:01 | MHC.OFFVIS ---
Intake Visit Reasons: follow up carotid and arterial US 01/24/24 Compound Filler Required: No Allergies No Known Allergies [NO KNOWN ALLERGIES] Allergy (Unknown, Verified 10/07/23 09:02) unknown HPI HPI follow up carotid and arterial US 01/24/24: Details: Very pleasant 68-year-old gentleman presents for follow-up regarding peripheral vascular disease and carotid disease. He has a past history of diabetes, hypertension, hyperlipidemia and AFib. He originally presented with a syncopal episode. He is a longstanding diabetic and a nonsmoker. He is being maintained on Eliquis for AFib. He now presents for follow-up with noninvasive arterial testing along with carotid testing. [facility]LY [facility] Medical History Foot ulcer, left FLORES (obstructive sleep apnea) History of cardioversion Hiatal hernia On anticoagulant therapy On beta nga at home Fecal incontinence AA (alcohol abuse) Type 2 diabetes mellitus with diabetic autonomic (poly)neuropathy B12 deficiency Benign prostatic hyperplasia without lower urinary tract symptoms GERD (gastroesophageal reflux disease) Hypercholesterolemia Benign essential HTN Body mass index [BMI] 38.0-38.9, adult Morbid (severe) obesity due to excess calories Anxiety Paroxysmal atrial fibrillation DM (diabetes mellitus) type II uncontrolled with eye manifestation Surgical History H/O left inguinal hernia repair History of esophagogastroduodenoscopy (EGD) Hx of colonoscopy History of surgery Deficient knowledge of leg surgery History of hip surgery History of amputation of toe History of cataract surgery History of tonsillectomy Family History Father No problems noted. Mother Asthma Brother No problems noted. Brother No problems noted. Brother No problems noted. Sister No problems noted. Sister No problems noted. Social History Housing: Apartment Alcohol intake: current Alcohol intake frequency: does not drink Alcohol type: beer Patient Tobacco Use Status: Never used Tobacco e-Cigarette/Vaping Use: Never Used Second Hand Smoke Exposure: No Substance Use Type: Marijuana service: No Current occupational status: retired Cognitive needs: No Hearing needs: No Vision needs: Yes (Reading Glasses) Review of Systems Const All systems reviewed & are unremarkable except as noted in HPI and below Denies chills, Denies fatigue, Denies fever(s), Denies weight gain and Denies weight loss ENT Reports Normal hearing present and Denies dizziness Card Denies chest pain, Denies leg edema, Denies lightheadedness, Denies palpitations, Denies dyspnea on exertion, Denies orthopnea and Denies other Resp Denies cough and Denies dyspnea on exertion GI Denies hematochezia and Denies change in stool character Musc Denies abnormal gait, Denies muscle weakness, Denies numbness, Denies radiating pain into limb and Denies tingling Skin/Breast Denies skin ulcer and Denies wounds Neuro Reports Normal hearing present, Denies abnormal gait, Denies dizziness, Denies numbness and Denies tingling Psych Reports no additional complaints Endo Denies fatigue and Denies palpitations Physical Exam Const General: cooperative, healthy appearing and comfortable Orientation/consciousness: oriented to person, oriented to place and oriented to time HEENT Head: Yes normal to inspection Neck Neck: Yes normal visual inspection Carotids: no bruits Chest Chest palpation & inspection: normal inspection of the chest Resp Effort & Inspection: normal respiratory effort and able to speak in complete sentences Auscultation: clear to auscultation bilaterally, no crackles, no rales, no rhonchi and no wheezes Cardio Rate: regular rate Rhythm: regular rhythm Heart sounds: S1 normal heart sound present and S2 normal heart sound present Bruits: no carotid bruits Peripheral pulses: Peripheral pulses 2+ throughout GI Inspection: Yes normal to inspection Skin Wounds: no wounds Hair: normal Neuro General: oriented to person, oriented to place and oriented to time Cranial nerves: Yes CN's II-XII intact bilaterally and Yes Normal hearing present Cognition (Neuro): normal cognition Motor exam (neuro): 5/5 motor strength present throughout Extrem Other: venous exam: No significant superficial varicosities or spider telangiectasias, minimal edema General: No clubbing, No cyanosis and No edema Psych Appearance: grossly normal Mental Status: mental status grossly normal Speech and movement: Normal speech and movement present Results Reviewed Results Reviewed: Noninvasive lower extremity arterial testing dated 01/24/2024 demonstrates GLO on the right of 1.14 and on the left was unable to attain. Written report and images were reviewed. It does appear to have reasonable waveforms. Carotid ultrasound dated 01/24/2024 unfortunately it appears that the images have been lost. I do have a faxed copy of a worksheet which demonstrates bilateral 0-49% but there is questionable severe plaque in the right bifurcation proximal internal carotid artery. Assessment & Plan Assessment & Plan (1) Bilateral carotid artery stenosis: Code(s): I65.23 - Occlusion and stenosis of bilateral carotid arteries Category: Medical Plan: In short patient does have some carotid disease. Unclear reason for near syncopal episode. I have taken the liberty of ordering a CT angiogram to better elucidate the true degree of disease. Will follow up with us after testing. Thank you for allowing us to assist in his care. If there are any questions or concerns please do not hesitate to contact us. (2) PAD (peripheral artery disease): Code(s): I73.9 - Peripheral vascular disease, unspecified Category: Medical Plan: In short patient has stable claudication. I did review the pathophysiology of peripheral vascular disease with the patient. In addition we did discuss routine conservative measures including a healthy diet and the importance of exercise and ambulation. We did discuss risk factor modification. The patient will continue to to follow-up with surveillance follow-up in approximately 1 year. Thank you for allowing us to participate in this patient's care. If there are any questions or concerns please do not hesitate to contact us. Orders: Orders CT angio neck 1 Week I65.23 - Occlusion and stenosis of bilateral carotid arteries Blood Urea Nitrogen Today I65.23 - Occlusion and stenosis of bilateral carotid arteries Creatinine Today I65.23 - Occlusion and stenosis of bilateral carotid arteries US arterial duplex LE BI 1 Year I73.9 - Peripheral vascular disease, unspecified Coding Level of Care Code Est Pt Level 4 (31523) Complex EM visit Add On G2211 Diagnoses Bilateral carotid artery stenosis I65.23 PAD (peripheral artery disease) I73.9
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
== END 2024-02-15 10:37 | disposition home or self-care (01) ==
PROVIDERS: PCP Internal Medicine; Visit Provider Surgery Vascular Surgery
DX: I65.23 Occlusion and stenosis of bilateral carotid arteries (principal); I73.9 Peripheral vascular disease, unspecified
CPT/HCPCS: 99214; G2211

== ENCOUNTER 2024-04-06 10:37 | Outpatient (AMB) | payer OTHER, SELFPAY ==
[2024-04-06 10:58] VITALS: BP 110/72; PULSE 60; O2SAT 98; BMI 32.8
--- NOTE | 2024-04-06 10:58 | A.OFFVIS_ITS ---
Vital Signs 04/06/24 10:58 Height 5 ft 7 in Weight 209 lb 7.026 oz BMI 32.8 BP 110/72 Blood Pressure Location Lt brachial Position Sitting Pulse 60 Pulse Source Pulse Oximeter Pulse Oximetry (%) 98 Oxygen Delivery Method Room Air Intake Visit Reasons: flores Intake Note: pt is here for follow up and states he sleeps on his side, had sleep study few months ago, declined set up. Only short of breath with stairs, but he takes his time. Baby Formula Worker Required: No Allergies No Known Allergies [NO KNOWN ALLERGIES] Allergy (Unknown, Verified 04/06/24 11:34) unknown Medication List - Last Reconciled 04/06/24 by Dell Erwin MD apixaban (Eliquis) 5 mg PO BID 90 days blood sugar diagnostic Test 3 times daily rnulbxo-wlklixiwz-qfyc 1 tab PO DAILY cholecalciferol (vitamin D3) 25 mcg PO DAILY citalopram 10 mg PO DAILY dulaglutide (Trulicity) 0.75 mg (0.5 mL) subcut QWEEK ergocalciferol (vitamin D2) 1,250 mcg PO QWEEK famotidine 20 mg PO DAILY ferrous sulfate 325 mg PO DAILY folic acid 1 mg PO DAILY insulin glargine (Lantus Solostar U-100 Insulin) 10 units subcut BEDTIME levothyroxine (Synthroid) 25 mcg PO DAILY loperamide 2 mg PO Q6H PRN magnesium oxide 400 mg PO DAILY metformin 1,000 mg PO BID metoprolol tartrate 25 mg PO BID pen needle, diabetic As directed pen needle, diabetic (Ultra-Thin II Insulin Pen [place]) 1 per day pioglitazone 15 mg PO DAILY simvastatin 20 mg PO QPM tramadol 50 mg PO DAILY PRN Do you need a note to return to daycare/school/sports/work: No HPI HPI flores: Details: FUENTES IS 68 YEARS OLD GENTLEMAN WHO IS HERE FROM THE CORRECTIONAL FACILITY, TO BE SEEN IN RELATION TO HISTORY OF SLEEP APNEA AND MILD INTERMITTENT COUGH. HE HAS BEEN SEEN BY ME A PRIMARY CARE PHYSICIAN IN THE PAST, THE LAST VISIT TO ME BEING MORE THAN 7 OR 8 YEARS AGO. HE USED TO BE QUITE HEAVY, WITH HISTORY OF SNORING AND DAYTIME SLEEPINESS. HE HAD A POLYSOMNOGRAM STUDY AT [facility] IN 2018, IT WAS POSITIVE FOR MODERATELY SEVERE OBSTRUCTIVE SLEEP APNEA. CPAP THERAPY WAS OFFERED BUT THE PATIENT DID NOT EXCEPT THIS TREATMENT. HE OPTED TO TREATED BY WEIGHT REDUCTION AND SLEEPING IN LATERAL POSITION. SUBSEQUENTLY HE HAS NOT BEEN SEEN BY ME UP UNTIL TODAY. HE IS A NONSMOKER, AND DID NOT HAVE SYMPTOMS RELATED TO CHRONIC OBSTRUCTIVE PULMONARY DISEASE. THE PATIENT DOES PAROXYSMAL ATRIAL FIBRILLATION, HYPERTENSION, DIABETES MELLITUS, GERD SYMPTOMS AND CHRONIC BACK PAIN. SINCE LATE 2023, HE HAS BEEN IN THE CORRECTIONAL FACILITY. HE HAD ANOTHER SLEEP STUDY AT [facility], AND AGAIN THE RECOMMENDATION WAS FOR HIM TO USE CPAP. HOWEVER HE DECLINED TO USE CPAP, AND AGAIN OPTED TO BE TREATED WITH CONSERVATIVE MEASURES. IT SHOULD BE NOTED THAT HE HAS SUCCESSFULLY LOST WEIGHT,, FROM HIS RECORDED BMI 39 IN 2018 HE IS DOWN TO BMI OF 32, THIS IS THE RESULT OF LOSING ALMOST 50 LB OF WEIGHT. HE DOES SLEEP ON HIS SIDE HE IS NOT AWARE OF ANY SNORING AND CLAIMS THAT HE DOES SLEEP AT LEAST 6 HOURS EVERY NIGHT, HE DENIES ANY DAYTIME SLEEPINESS. HE HAS STATED CATEGORICALLY THAT HE WOULD NOT USE THE CPAP DEVICE. [facility] Medical History (Updated 04/06/24 @ 11:48 by Dell Erwin MD) Obesity (BMI 30.0-34.9) Foot ulcer, left FLORES (obstructive sleep apnea) History of cardioversion Hiatal hernia On anticoagulant therapy On beta nga at home Fecal incontinence AA (alcohol abuse) Type 2 diabetes mellitus with diabetic autonomic (poly)neuropathy B12 deficiency Benign prostatic hyperplasia without lower urinary tract symptoms GERD (gastroesophageal reflux disease) Hypercholesterolemia Benign essential HTN Body mass index [BMI] 38.0-38.9, adult Morbid (severe) obesity due to excess calories Anxiety Paroxysmal atrial fibrillation DM (diabetes mellitus) type II uncontrolled with eye manifestation Surgical History H/O left inguinal hernia repair History of esophagogastroduodenoscopy (EGD) Hx of colonoscopy History of surgery Deficient knowledge of leg surgery History of hip surgery History of amputation of toe History of cataract surgery History of tonsillectomy Family History Father No problems noted. Mother Asthma Brother No problems noted. Brother No problems noted. Brother No problems noted. Sister No problems noted. Sister No problems noted. Social History Housing: Apartment Alcohol intake: current Alcohol intake frequency: does not drink Alcohol type: beer Patient Tobacco Use Status: Never used Tobacco e-Cigarette/Vaping Use: Never Used Second Hand Smoke Exposure: No Substance Use Type: Marijuana service: No Current occupational status: retired Cognitive needs: No Hearing needs: No Vision needs: Yes (Reading Glasses) Review of Systems Const All systems reviewed & are unremarkable except as noted in HPI and below Eyes Reports no additional complaints ENT Reports no additional complaints Card Denies chest pain at rest, Reports irregular heart rhythm (PAROXYSMAL ATRIAL FIB), Denies leg edema, Denies lightheadedness and Denies orthopnea Resp Reports as per HPI GI Reports heartburn (TREATED WITH FAMOTIDINE) Reports no additional complaints Musc Reports back pain and Reports arthralgias (MILD ) Skin/Breast Reports system reviewed and no additional complaints, except as documented Neuro Reports no additional complaints Psych Reports depression Endo Reports other (DIABETES MELLITUS AND HYPOTHYROIDISM) Aller/Immun Reports no additional complaints Physical Exam Vital Signs: Last Vital Signs Pulse 60 04/06/24 10:58 BP 110/72 04/06/24 10:58 Pulse Ox 98 04/06/24 10:58 Oxygen Delivery Method Room Air 04/06/24 10:58 BMI result Body Mass Index 32.8 Const General: healthy appearing, comfortable, no acute distress, alert and awake Orientation/consciousness: patient oriented x3 HEENT Head: Yes normal to inspection General nose exam: No nasal polyps present and No nasal discharge present Face and sinus: Yes sinuses nontender Mouth: oropharynx normal Throat: Yes posterior oropharynx normal Eyes General: appearance normal, both eyes and all related structures Neck Neck: Yes normal visual inspection, Yes no lymphadenopathy, Yes trachea midline and Yes no JVD Thyroid: Thyroid normal Chest Chest palpation & inspection: normal inspection of the chest, normal palpation of entire chest wall and no tenderness Resp Effort & Inspection: normal respiratory effort Auscultation: clear to auscultation bilaterally, no crackles, no rhonchi and no wheezes Cardio Palpation: normal PMI Rate: regular rate Rhythm: regular rhythm Heart sounds: no gallops and no murmurs GI Palpation (GI): Soft to palpation, nontender, No hepatosplenomegaly present and no masses Auscultation: normal bowel sounds Back/Spine/Pelvis Thoracic/Lumbar Spine: thoracic and lumbar spine normal to inspection Skin General skin exam: no rashes or lesions noted Neuro General: patient oriented x3 and no focal motor deficits Cranial nerves: Yes CN's II-XII intact bilaterally Extrem General: Yes normal to inspection, Yes no clubbing, cyanosis or edema and Yes no calf tenderness Psych Appearance: grossly normal and well kempt Speech and movement: Normal speech and movement present Results Reviewed Results Reviewed: RESULTS OF HIS SLEEP STUDY AT [facility] IN 2018 ARE REVIEWED. RESULTS OF HIS SLEEP STUDY AT [facility] IN 2023, NOT AVAILABLE, Assessment & Plan Assessment & Plan (1) Obesity (BMI 30.0-34.9): Comment: PATIENT HAS LOST SIGNIFICANT AMOUNT OF WEIGHT, CURRENT BMI 32.8 COMPARED TO 30/9 IN 2018 Code(s): E66.811 - Obesity, class 1 Category: Medical Plan: COMMENDED FOR CONTROLLING HIS WEIGHT, ENCOURAGED TO KEEP ON LOSING MORE WEIGHT AND TRY TO BRING IT BELOW 200 LB, WITH BMI BELOW 30 . (2) FLORES (obstructive sleep apnea): Comment: PATIENT DOES HAVE HISTORY OF OBSTRUCTIVE SLEEP APNEA IN THE PAST. HE NEVER USED THE CPAP AND WOULD NOT CONSIDER USING IT. HE HAS TRY TO FOLLOW THE DIET AND ALSO SLEEP IN LATERAL POSITION. AT PRESENT HE CLAIMS THAT HE SLEEPS GOOD AT LEAST FOR 6 HOURS EVERY NIGHT. HE IS STATING CATEGORICALLY THAT HE DOES NOT WANT TO USE THE CPAP. Code(s): G47.33 - Obstructive sleep apnea (adult) (pediatric) Category: Medical Plan: COMMENDED FOR LOSING WEIGHT, AND I THINK HIS SLEEP APNEA MAY BE IMPROVED SIGNIFICANTLY. ADVISED TO ALWAYS SLEEP IN LATERAL POSITION. ADVISE THAT HE SHOULD CONTINUE TO LOSE WEIGHT BY WATCHING HIS DIET, AND GOAL WOULD BE TO BRING THE WEIGHT BELOW 200 LB AND A BMI OF 30 OR BELOW. Medications: Changed From metoprolol tartrate 100 mg PO BID 180 tabs 0RF To metoprolol tartrate 25 mg PO BID From insulin glargine (Lantus Solostar U-100 Insulin) 50 units (0.5 mL) subcut BEDTIME 15 mL 1RF To insulin glargine (Lantus Solostar U-100 Insulin) 10 units subcut BEDTIME From pioglitazone 30 mg PO DAILY 90 tabs 1RF To pioglitazone 15 mg PO DAILY Coding Level of Care Code New Pt Level 3 (47396) Diagnoses Obesity (BMI 30.0-34.9) E66.811 FLORES (obstructive sleep apnea) G47.33
--- OUTSIDE RECORDS SUMMARY | 2024-04-06 14:18 | XMS_ITS | Patient Health Record ---
Author Organization [facility] Address [address] [place] [id number] Care Team Providers Care Linoleum Mechanic Name Role Phone HARJEET YEUNG Primary Care Provider Erik Henry Unavailable [phone] ALLERGIES No Known Allergies REASON FOR REFERRAL [...] Notes Problem Other dysphagia (R13.19) Active confirmed 36589179 Problem Abnormal upper gastrointestinal barium series (R93.3) Active confirmed 344375364 Problem Esophageal stricture (K22.2) Active confirmed 40282836 Problem Mass of esophagus determined by endoscopy (K22.8) Active confirmed 869715588 Problem Gastroesophageal reflux disease without esophagitis (K21.9) Active confirmed 097347305 Problem Encounter for screening for malignant neoplasm of colon (Z12.11) Active confirmed 953537092 Problem Encounter for screening for malignant neoplasm of rectum (Z12.12) Active confirmed Screening for malignant neoplasm of rectum (709655590) Problem Change in bowel function (R19.4) Active confirmed 68686456 Problem Diarrhea, unspecified type (R19.7) Active confirmed 63847235 Problem Rectal bleeding (K62.5) Active confirmed 49233326 Problem Diverticulosis of colon (K57.30) Active confirmed Diverticulosi s of colon (538258488) Problem Esophageal obstruction (K22.2) Active confirmed Strictur e of esophagus (69551813) Problem Esophageal reflux (K21.9) Active confirmed Esophageal reflux (911756142) Problem Dysphagia (R13.10) Active confirmed Dys phagia (76572137) Problem Other irritable bowel syndrome (K58.8) Active confirmed 19267682 PLAN OF TREATMENT Pending Test Test Name Order Date CELIAC PANEL #10 07/30/2020 Future Test Test Name Order Date UPPER GI ENDOSCOPY BALLOOON DILATION OF ESOPH 07/10/2015 COLONOSCOPY 07/10/2015 UPPER GI ENDOSCOPY BALLOOON DILATION OF ESOPH 07/30/2020 COLONOSCOPY 07/30/2020 Insurance Providers Payer Name Payer Address Payer Phone Subscriber Number Group Number Insured Name Patient Relationship to Insured Coverage Start Date Coverage End Date [facility] [address] [facility] [place] [phone] [id number] FUENTES STEWARD Self - patient is the insured MEDICAL (GENERAL) HISTORY Medical History History ICD Code IDDM HTN Denies [place],CVA,Lung disease,renal disease Esophageal stricture--he was diagnosed with [...]
== END 2024-04-06 11:22 | disposition home or self-care (01) ==
PROVIDERS: PCP Internal Medicine; Visit Provider Internal Medicine
DX: E66.811 Obesity, class 1 (principal); G47.33 Obstructive sleep apnea (adult) (pediatric)
CPT/HCPCS: 99203

== ENCOUNTER → 2024-04-06 10:37 | Outpatient (BNVA) | payer OTHER, SELFPAY | PROVIDERS: PCP Internal Medicine; Visit Provider Internal Medicine | DX: Z01.810 Encounter for preprocedural cardiovascular examination (principal); I48.92 Unspecified atrial flutter; I11.0 Hypertensive heart disease with heart failure; I50.9 Heart failure, unspecified; G47.33 Obstructive sleep apnea (adult) (pediatric); E66.811 Obesity, class 1; E66.01 Morbid (severe) obesity due to excess calories; Z79.01 Long term (current) use of anticoagulants; Z79.899 Other long term (current) drug therapy | CPT/HCPCS: 93005 ==

== ENCOUNTER 2024-04-06 11:31 | Outpatient (AMB) | payer OTHER, SELFPAY ==
[2024-04-06 12:54] VITALS: BP 100/62; PULSE 61; BMI 33.6
--- NOTE | 2024-04-06 12:54 | A.OFFVIS_ITS ---
Vital Signs 04/06/24 12:54 Height 5 ft 7 in Weight 214 lb 4.629 oz BMI 33.6 BP 100/62 Blood Pressure Location Lt brachial Position Sitting Pulse 61 Pulse Source Monitor Intake Visit Reasons: 6 mth f/up Operating Systems Specialist Required: No Speech Language Pathologist: Speech Language Pathologist Present Allergies No Known Allergies [NO KNOWN ALLERGIES] Allergy (Unknown, Verified 04/06/24 12:57) unknown Medication List - Last Reconciled 04/06/24 by FRANCISCA Lopez apixaban (Eliquis) 5 mg PO BID 90 days blood sugar diagnostic Test 3 times daily ogqhdoe-volswrtya-dnfe 1 tab PO DAILY cholecalciferol (vitamin D3) 25 mcg PO DAILY citalopram 10 mg PO DAILY dulaglutide (Trulicity) 0.75 mg (0.5 mL) subcut QWEEK ergocalciferol (vitamin D2) 1,250 mcg PO QWEEK famotidine 20 mg PO DAILY ferrous sulfate 325 mg PO DAILY folic acid 1 mg PO DAILY insulin glargine (Lantus Solostar U-100 Insulin) 10 units subcut BEDTIME levothyroxine (Synthroid) 25 mcg PO DAILY loperamide 2 mg PO Q6H PRN magnesium oxide 400 mg PO DAILY metformin 1,000 mg PO BID metoprolol tartrate 25 mg PO BID pen needle, diabetic As directed pen needle, diabetic (Ultra-Thin II Insulin Pen [place]) 1 per day pioglitazone 15 mg PO DAILY simvastatin 20 mg PO QPM tramadol 50 mg PO DAILY PRN HPI HPI 6 mth f/up: Details: Zack is a 68-year-old male with past medical history hyperlipidemia, carotid stenosis, smoking, paroxysmal atrial flutter and atrial fibrillation. He has failed flecainide in the past, Multaq lead to bradycardia requiring atropine in the past. He has failed cardioversion says in the past. He is now on metoprolol for heart rate control, and Eliquis for anticoagulation. Today he reports that he has been feeling generally well since his last visit using heart serrated here with long-term officers today. He has not been having any heart palpitations. He denies any chest discomfort at rest or with activity. He has no shortness of breath, PND, orthopnea or edema. He does have some mild lightheadedness if he stands up quickly. This is not new. He has not had any presyncope, syncope. He stays hydrated and tries to walk routinely for exercise when able. He takes his medications as prescribed. There is a medical provider at the long-term who sees him periodically. He recently had lab work drawn. [facility] Medical History Obesity (BMI 30.0-34.9) Foot ulcer, left FLORES (obstructive sleep apnea) History of cardioversion Hiatal hernia On anticoagulant therapy On beta nga at home Fecal incontinence AA (alcohol abuse) Type 2 diabetes mellitus with diabetic autonomic (poly)neuropathy B12 deficiency Benign prostatic hyperplasia without lower urinary tract symptoms GERD (gastroesophageal reflux disease) Hypercholesterolemia Benign essential HTN Body mass index [BMI] 38.0-38.9, adult Morbid (severe) obesity due to excess calories Anxiety Paroxysmal atrial fibrillation DM (diabetes mellitus) type II uncontrolled with eye manifestation Surgical History H/O left inguinal hernia repair History of esophagogastroduodenoscopy (EGD) Hx of colonoscopy History of surgery Deficient knowledge of leg surgery History of hip surgery History of amputation of toe History of cataract surgery History of tonsillectomy Family History Father No problems noted. Mother Asthma Brother No problems noted. Brother No problems noted. Brother No problems noted. Sister No problems noted. Sister No problems noted. Social History Housing: Apartment Alcohol intake: current Alcohol intake frequency: does not drink Alcohol type: beer Patient Tobacco Use Status: Never used Tobacco e-Cigarette/Vaping Use: Never Used Second Hand Smoke Exposure: No Substance Use Type: Marijuana service: No Current occupational status: retired Cognitive needs: No Hearing needs: No Vision needs: Yes (Reading Glasses) Review of Systems Const All systems reviewed & are unremarkable except as noted in HPI and below ENT Reports dizziness (mild at times when he stands up quickly) Card Denies chest pain, Denies chest pain at rest, Denies chest pain with activity, Denies rapid heart rate, Denies pedal edema, Denies edema, Denies leg edema, Denies lightheadedness, Denies palpitations, Denies dyspnea, Denies dyspnea on exertion and Denies orthopnea Resp Denies cough, Denies dyspnea and Denies dyspnea on exertion GI Denies hematochezia and Denies change in stool character Musc Denies abnormal gait, Denies limited range of motion, Denies muscle cramps, Denies muscle weakness, Denies numbness, Denies radiating pain into limb, Denies stiffness and Denies tingling Neuro Denies abnormal gait, Reports dizziness (mild at times when he stands up quickly), Denies numbness and Denies tingling Endo Denies palpitations Physical Exam Vital Signs: Last Vital Signs Pulse 61 04/06/24 12:54 BP 100/62 04/06/24 12:54 BMI result Body Mass Index 33.6 Const General: cooperative, healthy appearing, comfortable and no acute distress Orientation/consciousness: patient oriented x3 Neck Neck: Yes normal visual inspection Resp Effort & Inspection: normal respiratory effort Auscultation: clear to auscultation bilaterally, no crackles, no rales, no rhonchi and no wheezes Cardio Jugular venous distension: no JVD Rate: regular rate Rhythm: regular rhythm Heart sounds: S1 normal heart sound present, S2 normal heart sound present, no murmurs and no rubs Neuro General: patient oriented x3 Extrem General: Yes normal to inspection, No no pedal edema and No calf tenderness Psych Appearance: grossly normal Mental Status: mental status grossly normal Speech and movement: Normal speech and movement present Office Procedures EKG Details: Today, read by me, normal sinus rhythm, no acute ST or T-wave abnormalities, rate 61, QTC 430 milliseconds [id number], Complete Assessment & Plan Assessment & Plan (1) Paroxysmal atrial flutter: Code(s): I48.92 - Unspecified atrial flutter Category: Medical Plan: History of paroxysmal atrial fibrillation. Currently being treated with heart rate control using metoprolol. He previously had been on metoprolol as high as 100 mg b.i.d.. Over time his dose has been reduced, likely to low blood pressure readings. He is currently on 25 mg b.i.d.. He is not notice any heart palpitations since his last visit in September. His EKG today is showing sinus rhythm, rate 61. He is on Eliquis for anticoagulation and denies any bleeding issues. Recent labs done at the long-term -results unknown. No med changes made. Cardiology follow-up in 6 months, sooner if needed. (2) CHF (congestive heart failure): Code(s): I50.9 - Heart failure, unspecified Category: Medical Plan: History of having heart failure in the past. No clinical signs of heart failure on examination today. His last echocardiogram was done 01/06/2023 which showed normal study. A pharmacological nuclear stress test was done on 01/25/2023 showing no definitive findings suggesting ischemia or infarct. A sleep study had been previously ordered however not completed as incarcerated. (3) Benign essential HTN: Code(s): I10 - Essential (primary) hypertension Category: Medical Plan: History of hypertension. [facility] evaluation in June 2023 for syncope and treated for orthostatic hypotension. Since then he has not had recurrent syncope. He has had lightheadedness with quick position changes. Blood pressure is low today at 100/62. Discussed med changes and he says he actually feels fine the way he is. Will have him continue on the same metoprolol which is 25 mg b.i.d. to help prevent recurrent PAF. Instructed to increase his fluid intake as able. He previous said he has not been able to it easily in his current living situation. Use caution when sitting to standing, sit down if feeling lightheaded. (4) FLORES (obstructive sleep apnea): Code(s): G47.33 - Obstructive sleep apnea (adult) (pediatric) Category: Medical Plan: He tells me he does have a history of having sleep apnea in the past and wore a mask many years ago. He has not had a test for this in over 10 years. He likely does have sleep apnea but is unsure if he would use a mask again. Home sleep study was ordered last visit. Not completed, as above (5) Morbid (severe) obesity due to excess calories: Code(s): E66.01 - Morbid (severe) obesity due to excess calories Category: Medical Plan: His weight is down 6 lb since his an office visit in September. Plan Time spent on chart review, documentation, interview and assessment Coding Level of Care Code Est Pt Level 4 (59135) Complex EM visit Add On G2211 Diagnoses Paroxysmal atrial flutter I48.92 CHF (congestive heart failure) I50.9 Benign essential HTN I10 FLORES (obstructive sleep apnea) G47.33 Morbid (severe) obesity due to excess calories E66.01 CPT Codes EKG - CPT: 95866-[id number], Complete ([id number]) Time Spent (min) 28
== END 2024-04-06 13:30 | disposition home or self-care (01) ==
PROVIDERS: PCP Internal Medicine; Visit Provider Nurse Practitioner Family
DX: I48.92 Unspecified atrial flutter (principal); I50.9 Heart failure, unspecified; I10 Essential (primary) hypertension; G47.33 Obstructive sleep apnea (adult) (pediatric); E66.01 Morbid (severe) obesity due to excess calories
CPT/HCPCS: 93010; 99214; G2211

== ENCOUNTER 2024-04-20 09:10 | Outpatient (REF) | payer OTHER, SELFPAY ==
--- NOTE | ~2024-04-20 | CT_ITS ---
CLINICAL HISTORY: I65.23 - Occlusion and stenosis of bilateral carotid arteries CT angiography neck with contrast. 3D Postprocessing. Comparison: None Findings: There is a common origin of the brachiocephalic and left common carotid artery, a normal variant. The right common carotid artery is widely patent. There is severe atherosclerotic disease of the proximal right internal carotid artery. Severe focal stenosis, axial image 225 measuring 90-95%. There is 50% stenosis of the origin of the right ECA. Beyond these regions of stenoses, the vessels appear widely patent. The left common carotid artery is widely patent. There is a focus of a proximally 70% stenosis of the origin of the left common carotid artery. The left external carotid artery is widely patent. The vertebral arteries are codominant and patent. Visualized intracranial vasculature demonstrates no aneurysms or large vessel occlusion. No definite significant stenosis intracranially. No thyroid lesion. Subcentimeter lymph nodes are present within the mediastinum. No suspicious lung lesion. Degenerative changes seen within the spine. Impression: Severe focal stenosis of the origin of the right ICA measuring between 90 and 95%. Stenosis involving the origin of the left ICA measures proximally 70%. The remaining vasculature is patent. This document has been electronically signed by: Scar Abarca MD on 04/20/2024 13:11:26
--- OUTSIDE RECORDS SUMMARY | 2024-04-20 09:40 | XMS_ITS | Patient Health Record ---
Author Organization [facility] Address [address] [place] [id number] Care Team Providers Care Surgical Attendant Name Role Phone HARJEET YEUNG Primary Care Provider Erik Henry Unavailable [phone] ALLERGIES No Known Allergies REASON FOR REFERRAL [...] Notes Problem Other dysphagia (R13.19) Active confirmed 79102531 Problem Abnormal upper gastrointestinal barium series (R93.3) Active confirmed 148307993 Problem Esophageal stricture (K22.2) Active confirmed 21515702 Problem Mass of esophagus determined by endoscopy (K22.8) Active confirmed 463501500 Problem Gastroesophageal reflux disease without esophagitis (K21.9) Active confirmed 501065712 Problem Encounter for screening for malignant neoplasm of colon (Z12.11) Active confirmed 113979273 Problem Encounter for screening for malignant neoplasm of rectum (Z12.12) Active confirmed Screening for malignant neoplasm of rectum (285187915) Problem Change in bowel function (R19.4) Active confirmed 10135334 Problem Diarrhea, unspecified type (R19.7) Active confirmed 98813049 Problem Rectal bleeding (K62.5) Active confirmed 16157465 Problem Diverticulosis of colon (K57.30) Active confirmed Diverticulosi s of colon (650413491) Problem Esophageal obstruction (K22.2) Active confirmed Strictur e of esophagus (86960388) Problem Esophageal reflux (K21.9) Active confirmed Esophageal reflux (215276593) Problem Dysphagia (R13.10) Active confirmed Dys phagia (35248282) Problem Other irritable bowel syndrome (K58.8) Active confirmed 11397142 PLAN OF TREATMENT Pending Test Test Name Order Date CELIAC PANEL #10 07/30/2020 Future Test Test Name Order Date UPPER GI ENDOSCOPY BALLOOON DILATION OF ESOPH 07/10/2015 COLONOSCOPY 07/10/2015 UPPER GI ENDOSCOPY BALLOOON DILATION OF ESOPH 07/30/2020 COLONOSCOPY 07/30/2020 Insurance Providers Payer Name Payer Address Payer Phone Subscriber Number Group Number Insured Name Patient Relationship to Insured Coverage Start Date Coverage End Date [facility] [address] [facility] [place] [phone] [id number] FUENTES STEWARD Self - patient is the insured MEDICAL (GENERAL) HISTORY Medical History History ICD Code IDDM HTN Denies [place],CVA,Lung disease,renal disease Esophageal stricture--he was diagnosed with [...]
[2024-04-20] MEDS: iohexoL 350 MG/ML 100 ML INFUS..BTL 70 ML IV (10:22)
[2024-04-20 11:10] LABS: Creatinine POC 1.1 mg/dL (0.5-1.4); GFR POC > 60
== END 2024-04-20 09:11 | disposition home or self-care (01) ==
LOC: HO.CT 09:10
PROVIDERS: PCP Internal Medicine; Visit Provider Surgery Vascular Surgery
DX: I65.23 Occlusion and stenosis of bilateral carotid arteries (principal)
CPT/HCPCS: 70498; 82565; Q9967

== ENCOUNTER → 2024-04-20 09:15 | Outpatient (BNV) | payer OTHER, SELFPAY | PROVIDERS: PCP Internal Medicine; Visit Provider Radiology Vascular & Interventional Radiology | DX: I65.23 Occlusion and stenosis of bilateral carotid arteries (principal) | CPT/HCPCS: 70498 ==

== ENCOUNTER 2024-04-25 09:10 | Outpatient (AMB) | payer OTHER, SELFPAY ==
--- NOTE | 2024-04-25 09:12 | A.OFFVIS_ITS ---
Intake Visit Reasons: follow up CTA Neck Urgent Intake Note: Patient presents for CTA neck. Patient has no complaints. Allergies No Known Allergies [NO KNOWN ALLERGIES] Allergy (Unknown, Verified 04/25/24 09:15) unknown HPI HPI follow up CTA Neck Urgent: Details: 68-year-old gentleman presents for follow-up regarding carotid disease. He has a prior history of diabetes hypertension hyperlipidemia and AFib. Originally presented for syncopal episode. He is being maintained on Eliquis for AFib. Now presents for evaluation regarding his carotid stenosis. Of note he has had a CT angiogram as a confirmatory test. He is asymptomatic from this. Denies any lateralizing signs or symptoms, speech disturbances, or visual field deficits. [facility] Medical History Obesity (BMI 30.0-34.9) Foot ulcer, left FLORES (obstructive sleep apnea) History of cardioversion Hiatal hernia On anticoagulant therapy On beta nga at home Fecal incontinence AA (alcohol abuse) Type 2 diabetes mellitus with diabetic autonomic (poly)neuropathy B12 deficiency Benign prostatic hyperplasia without lower urinary tract symptoms GERD (gastroesophageal reflux disease) Hypercholesterolemia Benign essential HTN Body mass index [BMI] 38.0-38.9, adult Morbid (severe) obesity due to excess calories Anxiety Paroxysmal atrial fibrillation DM (diabetes mellitus) type II uncontrolled with eye manifestation Surgical History H/O left inguinal hernia repair History of esophagogastroduodenoscopy (EGD) Hx of colonoscopy History of surgery Deficient knowledge of leg surgery History of hip surgery History of amputation of toe History of cataract surgery History of tonsillectomy Family History Father No problems noted. Mother Asthma Brother No problems noted. Brother No problems noted. Brother No problems noted. Sister No problems noted. Sister No problems noted. Social History Housing: Apartment Alcohol intake: current Alcohol intake frequency: does not drink Alcohol type: beer Patient Tobacco Use Status: Never used Tobacco e-Cigarette/Vaping Use: Never Used Second Hand Smoke Exposure: No Substance Use Type: Marijuana service: No Current occupational status: retired Cognitive needs: No Hearing needs: No Vision needs: Yes (Reading Glasses) Review of Systems Const All systems reviewed & are unremarkable except as noted in HPI and below Reports no additional complaints ENT Reports Normal hearing present Card Denies chest pain, Denies chest pain at rest, Denies chest pain with activity and Denies pedal edema Resp Denies cough GI Denies abdominal pain Musc Denies abnormal gait, Denies muscle cramps and Denies radiating pain into limb Skin/Breast Denies skin ulcer and Denies wounds Neuro Reports Normal hearing present and Denies abnormal gait Psych Reports no additional complaints Physical Exam Const General: cooperative, healthy appearing and comfortable Orientation/consciousness: oriented to person, oriented to place and oriented to time HEENT Head: Yes normal to inspection Neck Neck: Yes normal visual inspection Carotids: no bruits Chest Chest palpation & inspection: normal inspection of the chest Resp Effort & Inspection: normal respiratory effort and able to speak in complete sentences Auscultation: clear to auscultation bilaterally, no crackles, no rales, no rhonchi and no wheezes Cardio Rate: regular rate Rhythm: regular rhythm Heart sounds: S1 normal heart sound present and S2 normal heart sound present Bruits: no carotid bruits Peripheral pulses: Peripheral pulses 2+ throughout GI Inspection: Yes normal to inspection Skin Wounds: no wounds Hair: normal Neuro General: oriented to person, oriented to place and oriented to time Cranial nerves: Yes CN's II-XII intact bilaterally and Yes Normal hearing present Cognition (Neuro): normal cognition Motor exam (neuro): 5/5 motor strength present throughout Extrem Other: venous exam: No significant superficial varicosities or spider telangiectasias, minimal edema General: No clubbing, No cyanosis and No edema Psych Appearance: grossly normal Mental Status: mental status grossly normal Speech and movement: Normal speech and movement present Results Reviewed Results Reviewed: CT angiogram of the carotids demonstrates severe focal stenosis of the right carotid artery measuring 90-95% in the left of 70%. Assessment & Plan Assessment & Plan (1) Carotid stenosis, right: Code(s): I65.21 - Occlusion and stenosis of right carotid artery Category: Medical Plan: In short patient has high-grade right carotid stenosis. Patient will require right carotid endarterectomy. Risks benefits complications including but not limited to bleeding infection stroke and were discussed in detail with the patient. He understood and would like to move forward. He will require cardiac risk stratification prior to surgery. Thank you for allowing us to assist in his care. Coding Level of Care Code Est Pt Level 4 (95589) Complex EM visit Add On G2211 Diagnoses Carotid stenosis, right I65.21
--- OUTSIDE RECORDS SUMMARY | 2024-04-25 09:46 | XMS_ITS | Patient Health Record ---
Author Organization [facility] [place] [facility] Address [address] [place] [id number] Care Team Providers Care Fireworks Assembler Name Role Phone HARJEET YEUNG Primary Care Provider Erik Henry Unavailable [phone] ALLERGIES No Known Allergies REASON FOR REFERRAL [...] Notes Problem Other dysphagia (R13.19) Active confirmed 17722145 Problem Abnormal upper gastrointestinal barium series (R93.3) Active confirmed 235224834 Problem Esophageal stricture (K22.2) Active confirmed 79005622 Problem Mass of esophagus determined by endoscopy (K22.8) Active confirmed 544750803 Problem Gastroesophageal reflux disease without esophagitis (K21.9) Active confirmed 880006933 Problem Encounter for screening for malignant neoplasm of colon (Z12.11) Active confirmed 325583110 Problem Encounter for screening for malignant neoplasm of rectum (Z12.12) Active confirmed Screening for malignant neoplasm of rectum (509246675) Problem Change in bowel function (R19.4) Active confirmed 80921282 Problem Diarrhea, unspecified type (R19.7) Active confirmed 81641497 Problem Rectal bleeding (K62.5) Active confirmed 65041361 Problem Diverticulosis of colon (K57.30) Active confirmed Diverticulosi s of colon (465841827) Problem Esophageal obstruction (K22.2) Active confirmed Strictur e of esophagus (12445374) Problem Esophageal reflux (K21.9) Active confirmed Esophageal reflux (945159728) Problem Dysphagia (R13.10) Active confirmed Dys phagia (10440383) Problem Other irritable bowel syndrome (K58.8) Active confirmed 22803124 PLAN OF TREATMENT Pending Test Test Name Order Date CELIAC PANEL #10 07/30/2020 Future Test Test Name Order Date UPPER GI ENDOSCOPY BALLOOON DILATION OF ESOPH 07/10/2015 COLONOSCOPY 07/10/2015 UPPER GI ENDOSCOPY BALLOOON DILATION OF ESOPH 07/30/2020 COLONOSCOPY 07/30/2020 Insurance Providers Payer Name Payer Address Payer Phone Subscriber Number Group Number Insured Name Patient Relationship to Insured Coverage Start Date Coverage End Date [facility] [address] [facility] [place] [phone] [id number] FUENTES STEWARD Self - patient is the insured MEDICAL (GENERAL) HISTORY Medical History History ICD Code IDDM HTN Denies [place],CVA,Lung disease,renal disease Esophageal stricture--he was diagnosed with [...]
== END 2024-04-25 09:40 | disposition home or self-care (01) ==
LOC: HO.HVS 09:10
PROVIDERS: PCP Internal Medicine; Visit Provider Surgery Vascular Surgery
DX: I65.21 Occlusion and stenosis of right carotid artery (principal)
CPT/HCPCS: 99214; G2211

== ENCOUNTER 2024-06-12 10:40 | Inpatient (IN) | payer OTHER, MEDICAID, SELFPAY ==
--- OUTSIDE RECORDS SUMMARY | 2024-04-27 15:05 | XMS_ITS | Patient Health Record ---
Author Organization [facility] Address [address] [place] [id number] Care Team Providers Care Wallpaper Consultant Name Role Phone HARJEET YEUNG Primary Care Provider Erik Henry Unavailable [phone] ALLERGIES No Known Allergies REASON FOR REFERRAL [...] Notes Problem Other dysphagia (R13.19) Active confirmed 82418383 Problem Abnormal upper gastrointestinal barium series (R93.3) Active confirmed 686387361 Problem Esophageal stricture (K22.2) Active confirmed 64223813 Problem Mass of esophagus determined by endoscopy (K22.8) Active confirmed 525572047 Problem Gastroesophageal reflux disease without esophagitis (K21.9) Active confirmed 457418277 Problem Encounter for screening for malignant neoplasm of colon (Z12.11) Active confirmed 896457311 Problem Encounter for screening for malignant neoplasm of rectum (Z12.12) Active confirmed Screening for malignant neoplasm of rectum (934729627) Problem Change in bowel function (R19.4) Active confirmed 90519657 Problem Diarrhea, unspecified type (R19.7) Active confirmed 09105259 Problem Rectal bleeding (K62.5) Active confirmed 58388638 Problem Diverticulosis of colon (K57.30) Active confirmed Diverticulosi s of colon (985286177) Problem Esophageal obstruction (K22.2) Active confirmed Strictur e of esophagus (56769504) Problem Esophageal reflux (K21.9) Active confirmed Esophageal reflux (551467505) Problem Dysphagia (R13.10) Active confirmed Dys phagia (02507457) Problem Other irritable bowel syndrome (K58.8) Active confirmed 62212832 PLAN OF TREATMENT Pending Test Test Name [...] Coverage Start Date Coverage End Date [facility] [address] [facility] [place] [phone] [id number] FUENTES STEWARD Self - patient is the insured MEDICAL (GENERAL) HISTORY Medical History History ICD Code IDDM HTN Denies [place],CVA,Lung disease,renal disease Esophageal stricture--he was diagnosed with [...]
[2024-06-05 10:56] VITALS: BP 112/61; PULSE 68; RESP 16; O2SAT 98; BMI 31.0
--- NOTE | 2024-06-05 11:10 | P.CONAN_ITS ---
Documented by User: Alondra Monzon NP 06/09/24 14:41 HPI - Anesthesia Eval Consult details Narrative: 68yo M for Right Carotid Endarterectomy, 06/12/24 Pt in police custody. Will be escorted by officers. Cardiac optimized. Follows [facility] Card[facility] Afib - eliquis Recent left toe osteomyelitis with amp/antibiotics FLORES - no CPAP Encourage cool trim preop. Pt will consider. Anesthesia Pre-Procedure Meds Is the patient on any of the following meds?: GLP1/DPP4 and SGLT2 Inhib PMFSH Active Problems Active Problems: All Active Problems Carotid stenosis, right (Acute) Bilateral carotid artery stenosis (Acute) PAD (peripheral artery disease) (Acute) Tenderness of right calf (Acute) Morbid obesity (Acute) Obesity hypoventilation syndrome (Acute) Hospital discharge follow-up (Acute) CHF (congestive heart failure) (Acute) Shortness of breath (Acute) Pulmonary nodule 1 cm or greater in diameter (Acute) Diabetes mellitus with hyperglycemia (Acute) Perinephric fluid collection (Acute) Lumbar spine pain (Acute) Acute kidney injury (Acute) Altered mental status (Acute) Flank pain (Acute) Osteoarthritis of right hip (Acute) Osteoarthritis of left hip (Acute) Persistent atrial fibrillation (Acute) Essential hypertension (Acute) Paroxysmal atrial flutter (Acute) Annual physical exam (Acute) Abrasion forearm (Acute) Preoperative clearance (Acute) Obesity (BMI 30.0-34.9) (Acute) FLORES (obstructive sleep apnea) (Acute) Paroxysmal atrial fibrillation (Acute) Morbid (severe) obesity due to excess calories (Acute) Foot ulcer, left (Acute) DM (diabetes mellitus) type II uncontrolled with eye manifestation (Acute) Fecal incontinence (Acute) GERD (gastroesophageal reflux disease) (Acute) Anxiety (Acute) Benign essential HTN (Acute) Past Medical History Medical History (Updated 06/05/24 @ 10:43 by Terra Alvarez RN) Arthritis Depression Numbness Obesity (BMI 30.0-34.9) Foot ulcer, left FLORES (obstructive sleep apnea) History of cardioversion Hiatal hernia On anticoagulant therapy On beta nga at home Fecal incontinence AA (alcohol abuse) Type 2 diabetes mellitus with diabetic autonomic (poly)neuropathy B12 deficiency Benign prostatic hyperplasia without lower urinary tract symptoms GERD (gastroesophageal reflux disease) Hypercholesterolemia Benign essential HTN Body mass index [BMI] 38.0-38.9, adult Morbid (severe) obesity due to excess calories Anxiety Paroxysmal atrial fibrillation DM (diabetes mellitus) type II uncontrolled with eye manifestation Family History Family History Father No problems noted. Mother Asthma Brother No problems noted. Brother No problems noted. Brother No problems noted. Sister No problems noted. Sister No problems noted. Surgical History Surgical History (Updated 06/05/24 @ 10:44 by Terra Alvarez RN) History of amputation of great toe H/O left inguinal hernia repair History of esophagogastroduodenoscopy (EGD) Hx of colonoscopy History of surgery Deficient knowledge of leg surgery History of hip surgery History of amputation of toe History of cataract surgery History of tonsillectomy Social History Social History Housing: Apartment Are you a primary health care facilities inspector to a significant other at home: No Do you presently have visiting nurse or other home services: No Alcohol intake: current Alcohol intake frequency: does not drink Alcohol type: beer Patient Tobacco Use Status: Never used Tobacco e-Cigarette/Vaping Use: Never Used Second Hand Smoke Exposure: No Use of substances other than those prescribed or required for medical reasons: No Substance Use Type: Marijuana Have you been hit, kicked, punched, or otherwise hurt by someone within the past year? If so, by whom?: No Are you DNR?: No Advance Directives: No Advance Directives Information Provided: Yes Advance Directives on File: No Recently lost weight without trying: No Eating poorly because of decreased appetite: No Nutrition Risks: No Nutritional Risk Poor oral hygiene: Yes (missing teeth) service: No Current occupational status: retired Cognitive needs: No Hearing needs: No Vision needs: Yes (Reading Glasses) Meds Allergies Allergy/AdvReac Type Severity Reaction Status Date / Time No Known Allergies Allergy Unknown unknown Verified 04/25/24 09:15 [NO KNOWN ALLERGIES] Home Medications ?Medication ?Instructions ?Recorded ?Confirmed ?Last Taken ?Type pen needle, diabetic 31 gauge x #1,200 ea 12/19/19 04/06/24 Unknown History 07/21 ergocalciferol (vitamin D2) 1,250 1,250 mcg PO QWEEK 04/06/24 06/05/24 06/10/24 History mcg (50,000 unit) capsule famotidine 20 mg tablet 20 mg PO BID 04/06/24 06/06/24 06/12/24 History ferrous sulfate 325 mg (65 mg 325 mg PO DAILY 04/06/24 06/05/24 06/10/24 History iron) tablet insulin glargine 100 unit/mL (3 10 unit subcut BEDTIME 04/06/24 06/05/24 06/11/24 History mL) subcutaneous pen (Lantus Solostar U-100 Insulin) loperamide 2 mg capsule 2 mg PO Q6H PRN Diarrhea 04/06/24 06/05/24 Unknown History magnesium oxide 400 mg PO BEDTIME 04/06/24 06/06/24 06/11/24 History metoprolol tartrate 100 mg tablet 25 mg PO BID 04/06/24 06/05/24 06/12/24 History pioglitazone 30 mg tablet 15 mg PO DAILY 04/06/24 06/05/24 06/11/24 History acetaminophen 325 mg tablet 650 mg PO Q6H PRN Pain 06/05/24 06/05/24 06/11/24 History atorvastatin 80 mg tablet 80 mg PO DAILY 06/05/24 06/05/24 06/11/24 History ertugliflozin 15 mg tablet 15 mg PO DAILY 06/05/24 06/12/24 06/08/24 History gabapentin 100 mg capsule 100 mg PO BID 06/05/24 06/05/24 06/11/24 History insulin regular human 100 unit/mL 1 sliding scale dose subcut 06/05/24 06/05/24 Unknown History injection solution USEASDIRECTD aspirin 81 mg tablet,delayed 81 mg PO DAILY 06/06/24 06/06/24 06/11/24 History release Exam Height,Weight and Vital Signs: Height 5 ft 8 in Weight 92.533 kg Last Vital Signs Pulse 68 06/05/24 10:56 Resp 16 06/05/24 10:56 BP 112/61 06/05/24 10:56 Pulse Ox 98 06/05/24 10:56 O2 Del Method Room Air 06/05/24 10:56 Pertinent Lab Results Pertinent Lab Results: Lab Results 06/05/24 Range/Units 11:45 WBC 11.2 H (4.8-10.8) X10*3/uL RBC 4.64 (4.60-5.80) X10*6/uL Hgb 13.6 L (14.0-18.0) g/dl Hct 43.0 (42.0-52.0) % MCV 92.7 (80.0-98.0) fL MCH 29.3 (27.0-33.0) pg MCHC 31.6 (31.0-36.0) g/dl RDW 15.1 (11.0-16.0) % Plt Count 287 (160-400) X10*3/uL MPV 10.4 (9.4-12.4) fL Absolute Nucleated RBC 0.000 (0.0-0.012) X10*3/uL Nucleated RBC % (auto) 0.0 (0.0-0.2) /100WBC PT 16.4 H (10.9-12.4) SEC INR 1.4 H (0.9-1.1) APTT 37.0 H (26.0-36.8) SEC Sodium 140 (135-145) mmol/L Potassium 4.4 (3.3-5.1) mmol/L Chloride 103 (96-108) mmol/L Carbon Dioxide 28 (22-29) mmol/L Anion Gap 13 (12-20) BUN 19 H (9-16) mg/dL Creatinine 0.81 (0.5-1.4) mg/dL Estim Creat Clear Calc 99.0 Estimated GFR > 60 Random Glucose 118 H (60-115) mg/dL Calcium 9.2 (8.4-10.2) mg/dL Blood Type A Positive Antibody Screen NEGATIVE Narrative Narrative: Neck CTA 2024 Impression: Severe focal stenosis of the origin of the right ICA measuring between 90 and 95%. Stenosis involving the origin of the left ICA measures proximally 70%. The remaining vasculature is patent. EKG 2024 Details: normal sinus rhythm, no acute ST or T-wave abnormalities, rate 61, QTC 430 milliseconds ECHO 2022 Conclusions: - Essentially normal study NM cardiolite stress test 2022 Impression: 1. Myocardial perfusion imaging study shows probably normal myocardial perfusion. No definitive findings to suggest ischemia or infarction. 2. Gated LVEF is 72% during stress and 67% during rest. 3. Transient ischemic dilatation not present. EKG component of the test reported separately. Airway Mallampati Class: III TM Dist: >3cm Neck ROM: Full Loose/Missing/Broken Teeth: Yes (Poor dentition. Many broken/missing. Pt denies loose) Heart: RRR Lungs: CTAB Assessment and Plan Assessment Anesthesia Assessment: Anesthesia Plan Discussed and PAT Visit Documented by User: Dyana Arrington MD 06/12/24 07:09 [facility] Past Medical History Medical History (Updated 06/05/24 @ 10:43 by Terra Alvarez RN) Arthritis Depression Numbness Obesity (BMI 30.0-34.9) Foot ulcer, left FLORES (obstructive sleep apnea) History of cardioversion Hiatal hernia On anticoagulant therapy On beta nga at home Fecal incontinence AA (alcohol abuse) Type 2 diabetes mellitus with diabetic autonomic (poly)neuropathy B12 deficiency Benign prostatic hyperplasia without lower urinary tract symptoms GERD (gastroesophageal reflux disease) Hypercholesterolemia Benign essential HTN Body mass index [BMI] 38.0-38.9, adult Morbid (severe) obesity due to excess calories Anxiety Paroxysmal atrial fibrillation DM (diabetes mellitus) type II uncontrolled with eye manifestation Family History Family History Father No problems noted. Mother Asthma Brother No problems noted. Brother No problems noted. Brother No problems noted. Sister No problems noted. Sister No problems noted. Family history of problems with anesthesia: No Surgical History Surgical History (Updated 06/05/24 @ 10:44 by Terra Alvarez RN) History of amputation of great toe H/O left inguinal hernia repair History of esophagogastroduodenoscopy (EGD) Hx of colonoscopy History of surgery Deficient knowledge of leg surgery History of hip surgery History of amputation of toe History of cataract surgery History of tonsillectomy History of Problems with Anesthesia: No Social History Social History Housing: Apartment Are you a primary health care facilities inspector to a significant other at home: No Do you presently have visiting nurse or other home services: No Alcohol intake: current Alcohol intake frequency: does not drink Alcohol type: beer Patient Tobacco Use Status: Never used Tobacco e-Cigarette/Vaping Use: Never Used Second Hand Smoke Exposure: No Use of substances other than those prescribed or required for medical reasons: No Substance Use Type: Marijuana Have you been hit, kicked, punched, or otherwise hurt by someone within the past year? If so, by whom?: No Are you DNR?: No Advance Directives: No Advance Directives Information Provided: Yes Advance Directives on File: No Recently lost weight without trying: No Eating poorly because of decreased appetite: No Nutrition Risks: No Nutritional Risk Poor oral hygiene: Yes (missing teeth) service: No Current occupational status: retired Cognitive needs: No Hearing needs: No Vision needs: Yes (Reading Glasses) Meds Allergies Allergy/AdvReac Type Severity Reaction Status Date / Time No Known Allergies Allergy Unknown unknown Verified 04/25/24 09:15 [NO KNOWN ALLERGIES] Home Medications ?Medication ?Instructions ?Recorded ?Confirmed ?Last Taken ?Type pen needle, diabetic 31 gauge x #1,200 ea 12/19/19 04/06/24 Unknown History 07/21 ergocalciferol (vitamin D2) 1,250 1,250 mcg PO QWEEK 04/06/24 06/05/24 06/10/24 History mcg (50,000 unit) capsule famotidine 20 mg tablet 20 mg PO BID 04/06/24 06/06/24 06/12/24 History ferrous sulfate 325 mg (65 mg 325 mg PO DAILY 04/06/24 06/05/24 06/10/24 History iron) tablet insulin glargine 100 unit/mL (3 10 unit subcut BEDTIME 04/06/24 06/05/24 06/11/24 History mL) subcutaneous pen (Lantus Solostar U-100 Insulin) loperamide 2 mg capsule 2 mg PO Q6H PRN Diarrhea 04/06/24 06/05/24 Unknown History magnesium oxide 400 mg PO BEDTIME 04/06/24 06/06/24 06/11/24 History metoprolol tartrate 100 mg tablet 25 mg PO BID 04/06/24 06/05/24 06/12/24 History pioglitazone 30 mg tablet 15 mg PO DAILY 04/06/24 06/05/24 06/11/24 History acetaminophen 325 mg tablet 650 mg PO Q6H PRN Pain 06/05/24 06/05/24 06/11/24 History atorvastatin 80 mg tablet 80 mg PO DAILY 06/05/24 06/05/24 06/11/24 History ertugliflozin 15 mg tablet 15 mg PO DAILY 06/05/24 06/12/24 06/08/24 History gabapentin 100 mg capsule 100 mg PO BID 06/05/24 06/05/24 06/11/24 History insulin regular human 100 unit/mL 1 sliding scale dose subcut 06/05/24 06/05/24 Unknown History injection solution USEASDIRECTD aspirin 81 mg tablet,delayed 81 mg PO DAILY 06/06/24 06/06/24 06/11/24 History release Assessment and Plan Assessment Anesthesia Assessment: Chart Reviewed Final Anesthetic Review Family History of Problems with Anesthesia: No History of Problems with Anesthesia: No NPO: Yes ASA Class: III Final Preanesthetic Review: No Changes in Pt Med Stat, Meds/Allgs Chart Reviewed and Consent Obtained/Reviewed Patient Risk: Intermediate Procedure Risk: Intermediate Anesthetic Plan Anesthetic Plan: GA Disposition: Standard PACU
[2024-06-05 12:28] LABS: Hemoglobin 13.6 g/dl (14.0-18.0); Mean Corpuscular HGB Conc 31.6 g/dl (31.0-36.0); Mean Corpuscular Hemoglobin 29.3 pg (27.0-33.0); Mean Corpuscular Volume 92.7 fL (80.0-98.0); Mean Platelet Volume 10.4 fL (9.4-12.4); Platelet Count 287 X10*3/uL (160-400); Red Blood Count 4.64 X10*6/uL (4.60-5.80); Red Cell Distribution Width 15.1 % (11.0-16.0); White Blood Count 11.2 X10*3/uL (4.8-10.8)
[2024-06-05 12:35] LABS: INTERNATIONAL NORM RATIO 1.4 (0.9-1.1); Prothrombin Time 16.4 SEC (10.9-12.4)
[2024-06-05 13:02] LABS: Anion Gap 13 (12-20); Blood Urea Nitrogen 19 mg/dL (9-16); Calcium 9.2 mg/dL (8.4-10.2); Carbon Dioxide 28 mmol/L (22-29); Chloride 103 mmol/L (96-108); Estimated Glomerular Filt Rate > 60; Glucose Random 118 mg/dL (60-115); Potassium 4.4 mmol/L (3.3-5.1); Sodium 140 mmol/L (135-145)
[2024-06-12] VITALS (20 sets, daily range): BP systolic 95–130; BP diastolic 50–62; PULSE 55–86; RESP 12–29; TEMP 36.1–36.4; O2SAT 92–96
[2024-06-12 06:56] LABS: Glucose, Whole Blood 117 mg/dL (60-115)
[2024-06-12] MEDS: Lactated Ringers 1,000 ML 100 ML IVCONT (07:12)
--- NOTE | 2024-06-12 07:13 | PC.NURSE ---
pt has not started trucity will start after surgery
--- NOTE | 2024-06-12 07:25 | MHC.SHP ---
Pre-Procedural Eval Section A - 24 Hr Update-Section A only Date of Service: 06/12/24 The patient is an INPATIENT: No Changes since office visit: Yes Patient answered all questions The patient has been examined within 24 hours of the surgical procedure. The History & Physical has been completed within 30 days and I have reviewed it.: Yes Section B - Complete if H&P > 30 days Chief Complaint: Occlusion and stenosis of right carotid artery Allergies: Allergies Allergy/AdvReac Type Severity Reaction Status Date / Time No Known Allergies Allergy Unknown unknown Verified 04/25/24 09:15 [NO KNOWN ALLERGIES] Plan I have reviewed the history and physical and performed a pertinent physical examination on my patient. No changes have occurred unless specified. Time Spent With Patient Time: Total time managing care of this patient today ____ minutes.
[2024-06-12] MEDS: ceFAZolin Sodium/Dextrose,Iso 2 GM/50 ML PIGGYBACK IV ×2 (08:10→13:53)
--- NOTE | 2024-06-12 10:50 | W.PM.OPN ---
Operative Note Operative Note Date of Service: 06/12/24 Narrative: Operative note by [facility] Preoperative diagnosis:1. Right Carotid stenosis Postoperative diagnosis: Same Procedure: Right Carotid endarterectomy with patch angioplasty Surgeon:Lopez Hinojosa M.D. [employer] Attendant: Millicent Bauer Anesthesia: General Specimens: 1 Drains: 1 Estimated blood loss: 1000 mL with 1 unit of packed red blood cells given back. Indications: 68-year-old incarcerated gentleman who prior workup inclusive of the CTA demonstrated 90-95% right carotid stenosis. He now presents for carotid endarterectomy The patient has signed the informed consent after reviewing risks, complications, benefits, and alternatives previously discussed with the patient. The patient was given the opportunity to ask any additional questions or voice any concerns. All questions were answered to the patient's satisfaction. Procedure in detail: Patient was taken to the operating room and placed in a supine position and prepped and draped in sterile manner with ChloraPrep. Longitudinal incision was made along the anterior border of the sternocleidomastoid carried down through the subcutaneous fat and fascia. Hemostasis was obtained with electrocautery. The platysma muscle was then divided. The carotid sheath was identified in open. The vagus nerve, Ancef cervicalis, and hypoglossal nerves were identified and avoided. The common internal and external carotids were then freed from the surrounding tissue. At this point, 5000 units of heparin was administered and allowed to circulate for 5 minutes time to take effect. The internal, common, external carotids were clamped in that order. Once this was accomplished, we proceeded with the procedure. The carotid bulb was opened with an 11 blade and extended with Garcia scissors through the very tight lesion into normal internal carotid artery. This was then extended down into the common carotid artery. We then placed a Peña shunt. Then the plaque was sharply excised proximally and an eversion endarterectomy was performed successfully at the external. During the process the proximal portion of the shunt dislodged and there was immediate loss of blood. This was nearly a L. we were able to regain control reinsert the shunt. We paused the procedure for anesthesia to catch up and the patient was hemodynamically stable before we continued again. The plaque tapered nicely on to the internal and no tacking sutures were necessary. Heparinized saline was injected and no evidence of flapping or other debris was noted. The remaining carotid was examined, which showed no debris or flaps present. At this point a XenoSure patch was brought on to the field. This was anastomosed to the artery using a 6 0 Prolene in a running fashion. Once approximately 4/5 of the patch was sewn in the shunt was then removed. Prior to the last stitch the internal carotid was back bled through this. Heparinized saline was instilled into the carotid. The last stitch was tied. Hemostasis was excellent. The internal carotid was gently occluded while while of the external and internal were open in that order. Finally the internal was then opened and flow was restored to the entire system. Hemostasis was achieved with interrupted 7-0 Prolene sutures. The wound was irrigated thoroughly. We then placed Vistaseal into the area to ensure appropriate hemostasis.. Deep layer was reapproximated using a 2-0 poly Sorb and finally the superficial layer with a 3-0 Polysorb. The skin was closed in a subcuticular manner. The patient awoke and neurologic status was checked and appeared to be intact. Sponge, needle and instrument counts were correct. The patient tolerated the procedure well. Returned to recovery with stable vitals. This note is constructed using voice recognition software. While every effort has been made to ensure accuracy, non destructive evaluation technician errors may have been included. Thank you for allowing me to participate in the care of your patient. Yours sincerely, Lopez Hinojosa MD, FACS, R.P.V.I.
[2024-06-12 10:58] LABS: MANUAL DIFF FLAG NO
[2024-06-12 11:03] LABS: Basophils Percent Auto 0.2 % (0-2); Eosinophils Absolute Auto 0.3 X10*3/uL (0.0-0.4); Eosinophils Percent Auto 1.9 % (0-4); Hematocrit 37.9 % (42.0-52.0); Hemoglobin 12.7 g/dl (14.0-18.0); Imm Gran Abs Auto 0.13 X10*3/uL (0.00-0.03); Imm Gran Pct Auto 0.9 % (0.0-0.4); Lymphocytes Percent Auto 14.2 % (20-40); Mean Corpuscular HGB Conc 33.5 g/dl (31.0-36.0); Mean Corpuscular Hemoglobin 30.4 pg (27.0-33.0); Mean Corpuscular Volume 90.7 fL (80.0-98.0); Mean Platelet Volume 9.3 fL (9.4-12.4); Monocytes Absolute Auto 1.1 X10*3/uL (0.1-1.2); Monocytes Percent Auto 7.8 % (2-11); Neutrophils Absolute Auto 10.6 x10*3/uL (2.0-8.3); Platelet Count 225 X10*3/uL (160-400); Red Blood Count 4.18 X10*6/uL (4.60-5.80); Red Cell Distribution Width 15.1 % (11.0-16.0); White Blood Count 14.1 X10*3/uL (4.8-10.8)
[2024-06-12] MEDS: Acetaminophen 325 MG TABLET 650 MG PO (12:46)
[2024-06-12 12:56] LABS: Glucose, Whole Blood 158 mg/dL (60-115)
--- NOTE | 2024-06-12 13:50 | PHA.MEDREC ---
Pharmacy Consult ? Medication Reconciliation Pharmacy has completed the medication reconciliation.
--- NOTE | 2024-06-12 13:52 | MHC.CM.PN ---
Pt from [facility] (officer present in room) - sleeping after vascular surgery. Pt is independent w/care needs and is expected to return to facility when medically stable. CM to follow on 06/13 to assist w/HCP completion (should pt accept). C.O. to transport pt to facility. CM to follow
--- NOTE | 2024-06-12 14:15 | PM.CCHP ---
History of Present Illness Date of Service: 06/12/24 Chief Complaint: Status post elective right carotid endarterectomy 68-year-old gentleman with underlying peripheral arterial disease, diabetes mellitus, hypertension, paroxysmal AFib, FLORES/OHS now postoperative day 0 after an elective right carotid endarterectomy being monitored in the intensive care unit. Review of Systems Constitutional: Constitutional: Denies daytime sleepiness, Denies excessive sweating, Denies fatigue, Denies fever(s), Denies lethargy, Denies malaise, Denies night sweats, Denies snoring and Denies weight loss Eyes: Eyes: Denies blurry vision and Denies itchy eyes ENT: Denies nasal congestion, Denies post nasal drip, Denies sinus pain, Denies sinus pressure and Denies other ( Thrush) Cardiovascular: Cardiovascular: Denies chest pain, Denies pedal edema, Denies dyspnea, Denies orthopnea and Denies paroxysmal nocturnal dyspnea Respiratory: Respiratory: Denies cough, Denies hemoptysis, Denies excessive phlegm production, Denies dyspnea, Denies snoring and Denies wheezing Gastrointestinal: Gastrointestinal: Denies abdominal pain and Denies heartburn Musculoskeletal: Musculoskeletal: Denies myalgias, Denies arthralgias and Denies joint swelling Integumentary/Breasts: Skin/Breast: Denies rash Neurologic: Denies memory loss and Denies seizure-like activity Psychiatric: Psychiatric: Denies abnormal sleep pattern, Denies anxiety and Denies memory loss Endocrine: Endocrine: Denies excessive sweating, Denies fatigue and Denies heat intolerance Hematologic/Lymphatic: Hematologic/Lymphatic: Denies easy bruising Allergic/Immunologic: Allergic/Immunologic: Denies itchy eyes, Denies seasonal rhinorrhea and Denies wheezing [facility] Past Medical History Medical History (Updated 06/05/24 @ 10:43 by Terra Alvarez RN) Arthritis Depression Numbness Obesity (BMI 30.0-34.9) Foot ulcer, left FLORES (obstructive sleep apnea) History of cardioversion Hiatal hernia On anticoagulant therapy On beta nga at home Fecal incontinence AA (alcohol abuse) Type 2 diabetes mellitus with diabetic autonomic (poly)neuropathy B12 deficiency Benign prostatic hyperplasia without lower urinary tract symptoms GERD (gastroesophageal reflux disease) Hypercholesterolemia Benign essential HTN Body mass index [BMI] 38.0-38.9, adult Morbid (severe) obesity due to excess calories Anxiety Paroxysmal atrial fibrillation DM (diabetes mellitus) type II uncontrolled with eye manifestation Family History Family History Father No problems noted. Mother Asthma Brother No problems noted. Brother No problems noted. Brother No problems noted. Sister No problems noted. Sister No problems noted. Surgical History Surgical History (Updated 06/12/24 @ 14:19 by Bola Avila MD) History of amputation of great toe H/O left inguinal hernia repair History of esophagogastroduodenoscopy (EGD) Hx of colonoscopy History of surgery Deficient knowledge of leg surgery History of hip surgery History of amputation of toe History of cataract surgery History of tonsillectomy Social History Social History Household Members: Other Household Members Other:: Jailhouse Housing: Apartment Are you a primary director of health care marketing to a significant other at home: No Do you presently have visiting nurse or other home services: No Alcohol intake: current Alcohol intake frequency: former alcohol drinker Alcohol type: beer Patient Tobacco Use Status: Never used Tobacco e-Cigarette/Vaping Use: Never Used Second Hand Smoke Exposure: No Use of substances other than those prescribed or required for medical reasons: No Substance Use Type: Marijuana Have you been hit, kicked, punched, or otherwise hurt by someone within the past year? If so, by whom?: No Do you feel safe in your current relationship?: No Current Relationship Is there a partner from a previous relationship who is making you feel unsafe now?: No Are you made to feel afraid or neglected: No Are you DNR?: No Advance Directives: No Advance Directives Information Provided: Yes Advance Directives on File: No Do you have a plan to hurt others: No Plan Recently lost weight without trying: No Eating poorly because of decreased appetite: No Nutrition Risks: No Nutritional Risk Poor oral hygiene: Yes (missing teeth) service: No Current occupational status: retired Cognitive needs: No Hearing needs: No Vision needs: Yes (Reading Glasses) Meds Allergies Allergy/AdvReac Type Severity Reaction Status Date / Time No Known Allergies Allergy Unknown unknown Verified 04/25/24 09:15 [NO KNOWN ALLERGIES] Active Medications: Current Medications Acetaminophen (Acetaminophen 325 Mg Tablet) 650 mg PO Q6H PRN PRN Reason: Pain, Mild 1-3,fever,headache Last Admin: 06/12/24 12:46 Dose: 650 mg Apixaban (Apixaban 5 Mg Tablet) 5 mg PO BID [facility] Aspirin (Aspirin Enteric Coated 81 Mg Tablet.) 81 mg PO DAILY [facility] Atorvastatin Calcium (Atorvastatin Calcium 80 Mg Tablet) 80 mg PO DAILY [facility] Calcium Carbonate (Calcium Carbonate 750 Mg Tab.Chew) 750 mg PO Q4H PRN PRN Reason: Heartburn Empagliflozin (Empagliflozin 10 Mg Tablet) 10 mg PO DAILY [facility] Ergocalciferol (Ergocalciferol (Vitamin D2) 1,250 Mcg Capsule) 1,250 mcg PO Q28D [facility] Escitalopram Oxalate (Escitalopram Oxalate 5 Mg Tablet) 5 mg PO DAILY [facility] Famotidine (Famotidine 20 Mg Tablet) 20 mg PO BID [facility] Ferrous Sulfate (Ferrous Sulfate 324 Mg Tablet.) 324 mg PO DAILY [facility] Folic Acid (Folic Acid 1 Mg Tablet) 1 mg PO DAILY [facility] Gabapentin (Gabapentin 100 Mg Capsule) 100 mg PO BID [facility] Cefazolin Sodium/Dextrose (Ancef) 2 gm in 50 mls @ 100 mls/hr IV POSTOP ONE Stop: 06/12/24 14:39 Last Admin: 06/12/24 13:53 Dose: 100 mls/hr Insulin Glargine (Insulin Glargine,Hum.Rec.Anlog 100 Unit/Ml 10 Ml Vial) 10 unit SUBCUT BEDTIME [facility] Insulin Human Lispro (Insulin Lispro 100 Unit/Ml 3 Ml Vial) 0 unit SUBCUT QIDACHS [facility]; Protocol Levothyroxine Sodium (Levothyroxine Sodium 25 Mcg Tablet) 25 mcg PO DAILY@0600 [facility] Loperamide HCl (Loperamide Hcl 2 Mg Capsule) 2 mg PO Q6H PRN PRN Reason: Diarrhea Magnesium Hydroxide (Milk Of Magnesia 30 Ml Oral.Susp) 30 ml PO DAILY PRN PRN Reason: Constipation Magnesium Oxide (Magnesium Oxide 400 Mg Tablet) 400 mg PO BEDTIME [facility] Melatonin (Melatonin 3 Mg Tablet) 6 mg PO BEDTIME PRN PRN Reason: Insomnia Metformin HCl (Metformin Hcl 1,000 Mg Tablet) 1,000 mg PO BID [facility] Metoprolol Tartrate (Metoprolol Tartrate 25 Mg Tablet) 25 mg PO BID [facility]; Protocol Morphine Sulfate (Morphine Sulfate 2 Mg/Ml Cartridge) 2 mg IVPUSH Q4H PRN; Protocol PRN Reason: Pain, Severe (Pain Scale 7-10) Naloxone HCl (Naloxone Hcl 0.4 Mg/Ml Vial) 0.04 mg IVPUSH Q5M PRN PRN Reason: Excessive sedation or RR < 8 Ondansetron HCl (Ondansetron Hcl 4 Mg/2 Ml Vial) 4 mg IVPUSH ONCE PRN PRN Reason: Nausea and Vomiting Stop: 06/12/24 14:31 Oxycodone HCl (Oxycodone Hcl Immed Release 5 Mg Tablet) 5 mg PO Q4H PRN PRN Reason: Pain, Moderate(Pain Scale 4-6) Pioglitazone HCl (Pioglitazone Hcl 15 Mg Tablet) 15 mg PO DAILY [facility] Sodium Chloride (0.9 % Sodium Chloride Flush 3 Ml Syringe) 3 [facility] Medications ?Medication ?Instructions ?Recorded ?Confirmed ?Last Taken ?Type pen needle, diabetic 31 gauge x #1,200 ea 12/19/19 04/06/24 Unknown History 07/21 ergocalciferol (vitamin D2) 1,250 1,250 mcg PO Q28D 04/06/24 06/12/24 06/10/24 History mcg (50,000 unit) capsule famotidine 20 mg tablet 20 mg PO BID 04/06/24 06/06/24 06/12/24 History ferrous sulfate 325 mg (65 mg 325 mg PO DAILY 04/06/24 06/05/24 06/10/24 History iron) tablet insulin glargine 100 unit/mL (3 10 unit subcut BEDTIME 04/06/24 06/05/24 06/11/24 History mL) subcutaneous pen (Lantus Solostar U-100 Insulin) loperamide 2 mg capsule 2 mg PO Q6H PRN Diarrhea 04/06/24 06/05/24 Unknown History magnesium oxide 400 mg PO BEDTIME 04/06/24 06/06/24 06/11/24 History metoprolol tartrate 100 mg tablet 25 mg PO BID 04/06/24 06/05/24 06/12/24 History pioglitazone 30 mg tablet 15 mg PO DAILY 04/06/24 06/05/24 06/11/24 History acetaminophen 325 mg tablet 650 mg PO Q6H PRN Pain 06/05/24 06/05/24 06/11/24 History atorvastatin 80 mg tablet 80 mg PO DAILY 0306/05/24 06/11/24 History ertugliflozin 15 mg tablet 15 mg PO DAILY 06/05/24 06/12/24 06/08/24 History gabapentin 100 mg capsule 100 mg PO BID 06/05/24 06/05/24 06/11/24 History insulin regular human 100 unit/mL 1 sliding scale dose subcut 06/05/24 06/05/24 Unknown History injection solution USEASDIRECTD aspirin 81 mg tablet,delayed 81 mg PO DAILY 06/06/24 06/06/24 06/11/24 History release Physical Exam Vital Signs: Vital Signs: Last Vital Signs Temp 97.0 F 06/12/24 13:00 Pulse 83 06/12/24 13:00 Resp 16 06/12/24 13:00 BP 108/60 06/12/24 13:00 Pulse Ox 95 06/12/24 13:00 O2 Del Method Room Air 06/12/24 13:00 O2 Flow Rate 2 06/12/24 11:50 BMI result Body Mass Index 31.0 Const: General: no acute distress, alert and awake Eyes: Sclerae: sclerae normal EOM: EOMs intact bilaterally Neck: Other: Right carotid endarterectomy site with no hematoma. Neck: Yes no lymphadenopathy, Yes trachea midline and Yes supple Resp: Effort & Inspection: normal respiratory effort and no respiratory distress Auscultation: clear to auscultation bilaterally Cardio: Rate: regular rate Rhythm: regular rhythm Heart sounds: no gallops, no murmurs and no rubs GI: Palpation (GI): Soft to palpation and Other GI palpation findings present ( Nontender) Auscultation: normal bowel sounds Extrem: General: Yes no pedal edema, No clubbing and No cyanosis Results Labs 06/12/24 10:54 06/05/24 11:45 Labs: Laboratory Results - last 24 hr 06/05/24 06/12/24 06/12/24 11:45 06:47 10:54 MCV 90.7 MCH 30.4 MCHC 33.5 RDW 15.1 Plt Count 225 MPV 9.3 L Immature Gran % (Auto) 0.9 H Neut % (Auto) 75.0 H Lymph % (Auto) 14.2 L [place] % (Auto) 7.8 Eos % (Auto) 1.9 Baso % (Auto) 0.2 Lymph # (Auto) 2.0 [place] # (Auto) 1.1 Eos # (Auto) 0.3 Baso # (Auto) 0.0 Abs Immat Gran (auto) 0.13 H Absolute Neuts (auto) 10.6 H Absolute Nucleated RBC 0.000 Nucleated RBC % (auto) 0.0 POC Glucose 117 H Blood Type A Positive Antibody Screen NEGATIVE Crossmatch See Detail 06/12/24 12:53 MCV MCH MCHC RDW Plt Count MPV Immature Gran % (Auto) Neut % (Auto) Lymph % (Auto) [place] % (Auto) Eos % (Auto) Baso % (Auto) Lymph # (Auto) [place] # (Auto) Eos # (Auto) Baso # (Auto) Abs Immat Gran (auto) Absolute Neuts (auto) Absolute Nucleated RBC Nucleated RBC % (auto) POC Glucose 158 H Blood Type Antibody Screen Crossmatch Assessment and Plan (1) Essential hypertension: Status: Acute (2) Paroxysmal atrial fibrillation: Status: Acute (3) PAD (peripheral artery disease): Status: Acute (4) Carotid stenosis, right: Status: Acute (5) Status post carotid endarterectomy: Status: Acute (6) FLORES (obstructive sleep apnea): Status: Acute (7) Obesity hypoventilation syndrome: Status: Acute (8) DM (diabetes mellitus) type II uncontrolled with eye manifestation: Status: Acute Plan Assessment: 68-year-old gentleman with underlying peripheral arterial disease now postoperative day 0 after an elective right carotid endarterectomy, recovering well. Plan: Neuro: No acute issues. Cardiac: Postoperative day 0 status post elective right carotid endarterectomy. Vascular surgery service care appreciated. Underlying hypertension and AFib. Pulmonary: No acute issues. Renal: No acute issues. Endo: No acute issues. Underlying diabetes mellitus, continue subcutaneous insulin. GI: No acute issues. ID: No acute issues Heme/Onc: No acute issues. Psych: No acute issues. Miscellaneous: No acute issues. Prophylaxis: Per vascular surgery Diet: Diabetic
[2024-06-12] MEDS: oxyCODONE HCl Immed Release 5 MG TABLET PO ×2 (14:41→22:23)
[2024-06-12] MEDS: 0.9 % Sodium Chloride Flush 3 ML SYRINGE IVFLUSH (16:28)
[2024-06-12 16:31] LABS: Glucose, Whole Blood 124 mg/dL (60-115)
--- NOTE | 2024-06-12 17:00 | PC.NURSE ---
Pt. arrived to ICU from PACU at approx. 1215. Pt. A&Ox4, clear speech, JACOB, equal strength B/L. c/o 5/10 pain to Sx site on R neck- medicated with PRN tylenol and oxy per MAY, ice applied intermittently. Surgical dsg CDI with no draining, minimal swelling. Pt. SR on tele, HR 70s-80s, MAPs >65. LS CTA with Dim bases, O2 weened off, satting >95% on RA while awake. Pt. with FLORES, intermittently desats to 80s while asleep, non-sustained- MD aware. Tolerating diabetic diet, last BM 06/11/24. Hirsch remains in place, draining dark yellow urine. Gauze roll around L great toe d/t recent toe amputation per pt. flight radio officer present at the bedside, pt. shackled to bed via R ankle- shackle loose with +CSM to R foot. Pt. repositions self in bed effectively. Pt. updated by MD and this RN. Call corrales within reach, pt. able to make needs known. Plan of care ongoing.
[2024-06-12 20:35] LABS: Glucose, Whole Blood 246 mg/dL (60-115)
[2024-06-12] MEDS: Metoprolol Tartrate 25 MG TABLET PO (20:36)
[2024-06-12] MEDS: metFORMIN HCl 1,000 MG TABLET 1000 MG PO (20:36)
[2024-06-12] MEDS: Gabapentin 100 MG CAPSULE PO (20:36)
[2024-06-12] MEDS: Magnesium Oxide 400 MG TABLET PO (20:36)
[2024-06-12] MEDS: Insulin Lispro 100 UNIT/ML 3 ML VIAL SUBCUT (20:37)
[2024-06-12] MEDS: Insulin Glargine,Hum.rec.anlog 100 UNIT/ML 10 ML VIAL 10 UNIT SUBCUT (20:37)
[2024-06-12] MEDS: Famotidine 20 MG TABLET PO (20:37)
[2024-06-13] VITALS (13 sets, daily range): BP systolic 100–132; BP diastolic 40–71; PULSE 62–90; RESP 11–20; TEMP 36.1–37.4; O2SAT 90–99; BMI 31.0
[2024-06-13] MEDS: Morphine Sulfate 2 MG/ML CARTRIDGE IVPUSH (02:12)
[2024-06-13] MEDS: Levothyroxine Sodium 25 MCG TABLET PO (05:35)
--- NOTE | 2024-06-13 05:52 | PC.NURSE ---
assumed care 1900, pt A&O SR on tele VSS, medicate for pain as needed see emar. escudero d/c this shift dtv 1200. surgical site cdi no staining at this time. some edema present. plan of care continues.
[2024-06-13 06:06] LABS: MANUAL DIFF FLAG NO
[2024-06-13 06:17] LABS: Basophils Percent Auto 0.3 % (0-2); Eosinophils Absolute Auto 0.2 X10*3/uL (0.0-0.4); Eosinophils Percent Auto 2.2 % (0-4); Hematocrit 33.9 % (42.0-52.0); Imm Gran Abs Auto 0.07 X10*3/uL (0.00-0.03); Imm Gran Pct Auto 0.7 % (0.0-0.4); Lymphocytes Absolute Auto 2.1 X10*3/uL (1.2-4.9); Lymphocytes Percent Auto 19.8 % (20-40); Mean Corpuscular HGB Conc 32.4 g/dl (31.0-36.0); Mean Corpuscular Hemoglobin 30.1 pg (27.0-33.0); Mean Corpuscular Volume 92.9 fL (80.0-98.0); Mean Platelet Volume 9.9 fL (9.4-12.4); Monocytes Percent Auto 9.4 % (2-11); Neutrophils Absolute Auto 7.1 x10*3/uL (2.0-8.3); Neutrophils Percent Auto 67.6 % (45-73); Platelet Count 217 X10*3/uL (160-400); Red Blood Count 3.65 X10*6/uL (4.60-5.80); White Blood Count 10.5 X10*3/uL (4.8-10.8)
[2024-06-13 06:26] LABS: Albumin Level 2.9 g/dL (3.5-5.0); Anion Gap 11 (12-20); Blood Urea Nitrogen 13 mg/dL (9-16); Calcium 8.5 mg/dL (8.4-10.2); Carbon Dioxide 29 mmol/L (22-29); Chloride 103 mmol/L (96-108); Creatinine Clr Calc Pharmacy 112.9; Estimated Glomerular Filt Rate > 60; Glucose Random 144 mg/dL (60-115); Magnesium 1.6 mg/dL (1.6-2.6); Phosphorus 3.3 mg/dL (2.7-4.5); Potassium 4.2 mmol/L (3.3-5.1); Sodium 139 mmol/L (135-145)
--- NOTE | 2024-06-13 07:24 | HO.POSTANES ---
Post Anesthesia Evaluation Post Anesthesia Evaluation Date of Service: 06/13/24 Vital Signs: Vital Signs Temp Pulse Resp BP Pulse Ox O2 Del Method 06/13/24 06:00 63 13 115/63 94 Room Air 06/13/24 05:00 62 15 110/40 L 99 Room Air 06/13/24 04:00 98.0 F 63 14 103/40 L 96 Room Air 06/13/24 03:00 64 11 L 109/57 L 99 Room Air 06/13/24 02:00 67 12 104/52 L 90 L Room Air 06/13/24 01:00 72 16 100/41 L 90 L Room Air 06/13/24 00:00 96.9 F 76 16 105/71 95 Room Air 06/12/24 23:00 78 14 110/62 94 Room Air 06/12/24 22:00 77 28 H 108/60 92 Room Air 06/12/24 21:00 80 14 115/57 L 92 Room Air 06/12/24 20:00 79 19 108/50 L Anesthesia: General Endotracheal-GETA Mental Status: Sedated (asleep) Pain Control: Satisfactory Nausea/Vomiting: None Hydration: Adequate Anesthesia-Related Issues: No Anes. Related Issues
[2024-06-13] MEDS: 0.9 % Sodium Chloride Flush 3 ML SYRINGE IVFLUSH (07:26)
[2024-06-13] MEDS: Atorvastatin Calcium 80 MG TABLET PO (07:30)
[2024-06-13] MEDS: Albumin Human 25 % 100 ML IV (07:30)
[2024-06-13] MEDS: Ferrous Sulfate 324 MG TABLET.DR PO (07:30)
[2024-06-13] MEDS: Gabapentin 100 MG CAPSULE PO (07:31)
[2024-06-13] MEDS: metFORMIN HCl 1,000 MG TABLET 1000 MG PO (07:31)
[2024-06-13] MEDS: Empagliflozin 10 MG TABLET PO (07:31)
[2024-06-13] MEDS: Metoprolol Tartrate 25 MG TABLET PO (07:31)
[2024-06-13] MEDS: Escitalopram Oxalate 5 MG TABLET PO (07:31)
[2024-06-13] MEDS: Famotidine 20 MG TABLET PO (07:31)
[2024-06-13] MEDS: Apixaban 5 MG TABLET PO (07:32)
[2024-06-13] MEDS: Aspirin Enteric Coated 81 MG TABLET.DR PO (07:32)
[2024-06-13] MEDS: Folic Acid 1 MG TABLET PO (07:32)
[2024-06-13 07:42] LABS: Glucose, Whole Blood 126 mg/dL (60-115)
[2024-06-13 09:03] LABS: Creatinine Clr Calc Pharmacy 112.9; Estimated Glomerular Filt Rate > 60
--- NOTE | 2024-06-13 10:11 | P.DS_ITS ---
DS: Providers Provider Date of Service: 06/13/24 Date of admission: 06/12/24 10:40 Date of discharge: 06/13/24 Primary care physician: Abe Yeager MD DS: Diagnosis Discharge Diagnosis (1) Essential hypertension: Status: Acute (2) Paroxysmal atrial fibrillation: Status: Acute (3) PAD (peripheral artery disease): Status: Acute (4) Carotid stenosis, right: Status: Acute (5) Status post carotid endarterectomy: Status: Acute (6) FLORES (obstructive sleep apnea): Status: Acute (7) Obesity hypoventilation syndrome: Status: Acute (8) DM (diabetes mellitus) type II uncontrolled with eye manifestation: Status: Acute DS: Summary Hospital Course Hospital Course: Zack is s/p right carotid endarterectomy, performed on 06/12. There was an approximate 1L of blood loss during the surgery and he did require 1u pRBCs. He remained stable through the surgery. His H/H this morning remains stable. He remained in the ICU last night and remained stable. His Hirsch has been removed and his IVF will be removed. He will get OOB this morning. He states he is feeling well this morning and has little pain. He denies any weakness, dizziness, headaches, or lightheadedness. He has no concerns this morning. There is no bleeding or drainage noted on the dressing this morning, it will be taken down this morning. He will be ready for discharge home this afternoon. I discussed with him taking Tylenol and Ibuprofen for pain relief. We discussed the importance to not lift anything more than a gallon of milk (appx 5 pounds) for the next 2-3 weeks. I discussed the importance of relaxing but not being completely sedentary; he can do light physical activity. I discussed to keep the incision site clean and dry and that the steri strips will fall off on their own, likely in a week or so. We will have him follow up in the office for his 2w follow up on 06/22. If there are any concerns with the incision site including warmth, redness, bleeding/drainage, or any other concerns, we discussed to call our office. If he experiences any dizziness, headaches, lightheadedness, or stroke-like symptoms, we discussed to go to the ER. Time Attestation Discharge Coordination Time (in mins): 45 Quality: Safe Use of Opioids Does Pt have an Active Cancer Diagnosis on the Problem List?: No Quality: Stroke Does the patient have a stroke diagnosis?: No Physical Exam Vital Signs: Vital Signs: Last Vital Signs Temp 99.4 F 06/13/24 08:00 Pulse 69 06/13/24 08:00 Resp 18 06/13/24 08:00 BP 107/61 06/13/24 07:00 Pulse Ox 94 06/13/24 06:00 O2 Del Method Room Air 06/13/24 08:00 O2 Flow Rate 2 06/12/24 11:50 BMI result Body Mass Index 31.0 Const: General: comfortable and no acute distress Orientation/consciousness: patient oriented x3 HEENT: Ears: hearing grossly normal bilaterally Neck: Other: Incision site intact, no bleeding or drainage noted on the bandage. Resp: Effort & Inspection: normal respiratory effort and able to speak in complete sentences Auscultation: clear to auscultation bilaterally Cardio: Rate: regular rate Rhythm: regular rhythm Heart sounds: S1 normal heart sound present and S2 normal heart sound present Bruits: no abdominal aortic bruits, no carotid bruits, no femoral bruits and no renal bruits GI: Palpation (GI): No Abdominal aortic bruit present Neuro: General: patient oriented x3 Cranial nerves: Yes CN's II-XII intact bilaterally DS: Data Data Completed and Pending Pending studies at discharge: Pending at discharge 06/12/24 09:22 Surgical [PTH] Routine Labs on day of discharge: Laboratory Results - last 24 hr 06/05/24 06/12/24 06/12/24 11:45 10:54 12:53 WBC 14.1 H RBC 4.18 L Hgb 12.7 L Hct 37.9 L MCV 90.7 MCH 30.4 MCHC 33.5 RDW 15.1 Plt Count 225 MPV 9.3 L Immature Gran % (Auto) 0.9 H Neut % (Auto) 75.0 H Lymph % (Auto) 14.2 L Armstrong % (Auto) 7.8 Eos % (Auto) 1.9 Baso % (Auto) 0.2 Lymph # (Auto) 2.0 Armstrong # (Auto) 1.1 Eos # (Auto) 0.3 Baso # (Auto) 0.0 Abs Immat Gran (auto) 0.13 H Absolute Neuts (auto) 10.6 H Absolute Nucleated RBC 0.000 Nucleated RBC % (auto) 0.0 Sodium Potassium Chloride Carbon Dioxide Anion Gap BUN Creatinine Estim Creat Clear Calc Estimated GFR POC Glucose 158 H Random Glucose Calcium Phosphorus Magnesium Albumin Blood Type A Positive Antibody Screen NEGATIVE Crossmatch See Detail 06/12/24 06/12/24 06/13/24 16:25 20:26 05:54 WBC 10.5 RBC 3.65 L Hgb 11.0 L Hct 33.9 L MCV 92.9 MCH 30.1 MCHC 32.4 RDW 15.0 Plt Count 217 MPV 9.9 Immature Gran % (Auto) 0.7 H Neut % (Auto) 67.6 Lymph % (Auto) 19.8 L Armstrong % (Auto) 9.4 Eos % (Auto) 2.2 Baso % (Auto) 0.3 Lymph # (Auto) 2.1 Armstrong # (Auto) 1.0 Eos # (Auto) 0.2 Baso # (Auto) 0.0 Abs Immat Gran (auto) 0.07 H Absolute Neuts (auto) 7.1 Absolute Nucleated RBC 0.000 Nucleated RBC % (auto) 0.0 Sodium 139 Potassium 4.2 Chloride 103 Carbon Dioxide 29 Anion Gap 11 L BUN 13 Creatinine 0.71 Estim Creat Clear Calc 112.9 Estimated GFR > 60 POC Glucose 124 H 246 H Random Glucose 144 H Calcium 8.5 D Phosphorus 3.3 Magnesium 1.6 Albumin 2.9 L Blood Type Antibody Screen Crossmatch 06/13/24 06/13/24 07:39 07:54 WBC RBC Hgb Hct MCV MCH MCHC RDW Plt Count MPV Immature Gran % (Auto) Neut % (Auto) Lymph % (Auto) Armstrong % (Auto) Eos % (Auto) Baso % (Auto) Lymph # (Auto) Armstrong # (Auto) Eos # (Auto) Baso # (Auto) Abs Immat Gran (auto) Absolute Neuts (auto) Absolute Nucleated RBC Nucleated RBC % (auto) Sodium Potassium Chloride Carbon Dioxide Anion Gap BUN Creatinine 0.71 Estim Creat Clear Calc 112.9 Estimated GFR > 60 POC Glucose 126 H Random Glucose Calcium Phosphorus Magnesium Albumin Blood Type Antibody Screen Crossmatch Discharge Plan Discharge Anticipated Discharge Date/Time: 06/13/24 12:48 Patient Disposition: Home, Self-Care Discharge Diagnosis: s/p right carotid endarterectomy Referrals: Abe Yeager MD [Primary Care Provider] - 1 Week Discharge Medications: Continued (DME) pen needle, diabetic [Ultra-Thin II Ins Pen [place]] 29 gauge x 1/2 needle See Rx Instructions .ROUTE .MEDSUPPLY Qty: 100 1RF Rx Instructions: 1 per day levothyroxine [Synthroid] 25 mcg tablet 25 mcg PO DAILY Qty: 90 3RF metformin 1,000 mg tablet 1,000 mg PO BID Qty: 180 1RF citalopram 10 mg tablet 10 mg PO DAILY Qty: 90 0RF Eliquis 5 mg tablet 5 mg PO BID 90 Days Qty: 180 3RF (DME) blood sugar diagnostic Strip See Rx Instructions .ROUTE TID Qty: 100 6RF Rx Instructions: Test 3 times daily folic acid 1 mg tablet 1 mg PO DAILY Qty: 90 1RF atorvastatin 80 mg Tablet 80 mg PO DAILY insulin regular human 100 unit/mL Solution 1 sliding scale dose SUBCUT USEASDIRECTD gabapentin 100 mg Capsule 100 mg PO BID ertugliflozin 15 mg Tablet 15 mg PO DAILY acetaminophen 325 mg Tablet 650 mg PO Q6H PRN (Reason: Pain) aspirin 81 mg Tablet,Delayed Release (Dr/Ec) 81 mg PO DAILY (DME) pen needle, diabetic 31 gauge x 5/16 needle See Rx Instructions subcut DAILY Qty: 1200 Rx Instructions: As directed Trulicity 0.75 mg/0.5 mL pen injector 0.75 mg subcut QWEEK Qty: 2 2RF Patient Comments: patient takes every Wednesday Rx Instructions: have not started ergocalciferol (vitamin D2) 1,250 mcg (50,000 unit) capsule 1,250 mcg PO Q28D insulin glargine [Lantus Solostar U-100 Insulin] 100 unit/mL (3 mL) insulin pen 10 unit subcut BEDTIME metoprolol tartrate 100 mg tablet 25 mg PO BID pioglitazone 30 mg tablet 15 mg PO DAILY famotidine 20 mg tablet 20 mg PO BID magnesium oxide 400 mg magnesium capsule 400 mg PO BEDTIME loperamide 2 mg capsule 2 mg PO Q6H PRN (Reason: Diarrhea) ferrous sulfate 325 mg (65 mg iron) tablet 325 mg PO DAILY Discharge Orders: Discharge Order (Routine); Ordered 06/13/24 Ordered By: Millicent Callahan Diet: Advance to usual diet Activity on Discharge: As tolerated Stand Alone Forms: Patient Portal Discharge page Print Language: B[place] Activity Restrictions/Additional Instructions: Do not lift more than a gallon of milk (appx 5 pounds). NO driving until your follow up appt, in 2 weeks. Please take the next 2 weeks to relax but do not be sedentary. Light physical activity only. You may take Ibuprofen or Tylenol for pain control. Shave carefully around the incision site. The steri strips will fall off on their own. The sutures are dissolvable. Check your incision daily for any signs of infection including redness, warmth, swelling, or drainage. Follow up appt at Dr Hinojosa's office on 06/22. Care Plan Goals: Keep incision site clean and dry.. Do not lift anything heavier than 5 pounds for 2-3 weeks. No driving until you are cleared on your 2 week follow up. Maintain a healthy, well balanced diet with protein, vegetables, and fruit. Health Concerns: If you experience any headaches, dizziness, lightheadedness, or stroke-like symptoms, please get to the ER. Plan of Treatment: Continue with current medications. Keep the incision site clean and dry. Be careful shaving around the incision area. Assessment: s/p right carotid endarterectomy
[2024-06-13 11:54] LABS: Glucose, Whole Blood 123 mg/dL (60-115)
--- NOTE | 2024-06-13 13:37 | PC.NURSE ---
Assumed care at 0700. Pt due to void by 1200. Pt fully alert & oriented with pleasant affect. Per Dr. Hinojosa, dressing removed, steri-strips retained. Pt voided at approx 1000. Pt dangled legs off bed several times. Psychiatric Aide spoke shanthi Mario RN at [facility] to give report. IVs and cardiac monitoring removed. Discharge education given to pt.
--- NOTE | 2024-06-13 13:54 | MHC.CM.PN ---
Pt to be d/c'd to [facility] w/officer today. Officer to transport
== END 2024-06-13 14:22 | disposition home or self-care (01) | DRG 38 ==
LOC: HO.SSSA 10:47 → HO.ICU 10:51
PROVIDERS: Nurse Practitioner; Surgery Vascular Surgery; Admitting Provider Physician Assistant Surgical; PCP Internal Medicine; Visit Provider Internal Medicine Pulmonary Disease
PROC: 03CK0ZZ Extirpation of Matter from Right Internal Carotid Artery, Open Approach (ICD-10-PCS; CPT 35301; principal; 2024-06-12 07:30)
DX: I65.21 Occlusion and stenosis of right carotid artery (principal); E66.2 Morbid (severe) obesity with alveolar hypoventilation; E03.9 Hypothyroidism, unspecified; I48.0 Paroxysmal atrial fibrillation; Z68.31 Body mass index [BMI] 31.0-31.9, adult; E11.51 Type 2 diabetes mellitus with diabetic peripheral angiopathy without gangrene; Z79.4 Long term (current) use of insulin; Z79.01 Long term (current) use of anticoagulants; Z79.85 Long-term (current) use of injectable non-insulin antidiabetic drugs; Z79.84 Long term (current) use of oral hypoglycemic drugs; Z79.890 Hormone replacement therapy; Z79.899 Other long term (current) drug therapy
CPT/HCPCS: 36415; 80048; 82040; 82565; 82947; 83735; 84100; 85025; 85027; 85610; 85730; 86850; 86900; 86901; 86923; 88304; 88311; A4649; C1768; C9250; J0131; J0330; J0690; J1100; J1644; J2003; J2250; J2270; J2305; J2405; J2598; J2704; J2795; J3010; P9016; P9047

== ENCOUNTER → 2024-06-12 10:40 | Outpatient (BNV) | payer OTHER, SELFPAY | PROVIDERS: Admitting Provider Physician Assistant Surgical; PCP Internal Medicine; Visit Provider Surgery Vascular Surgery | DX: I10 Essential (primary) hypertension (principal); I48.0 Paroxysmal atrial fibrillation; I73.9 Peripheral vascular disease, unspecified; I65.21 Occlusion and stenosis of right carotid artery; Z98.890 Other specified postprocedural states; G47.33 Obstructive sleep apnea (adult) (pediatric); E66.2 Morbid (severe) obesity with alveolar hypoventilation; E11.39 Type 2 diabetes mellitus with other diabetic ophthalmic complication; E11.65 Type 2 diabetes mellitus with hyperglycemia | CPT/HCPCS: 35301; 99024 ==

== ENCOUNTER → 2024-06-12 10:40 | Outpatient (BNV) | payer OTHER, SELFPAY | PROVIDERS: Admitting Provider Physician Assistant Surgical; PCP Internal Medicine; Visit Provider Internal Medicine Pulmonary Disease | DX: I65.21 Occlusion and stenosis of right carotid artery (principal); I48.0 Paroxysmal atrial fibrillation; I73.9 Peripheral vascular disease, unspecified; I10 Essential (primary) hypertension; G47.33 Obstructive sleep apnea (adult) (pediatric); E66.2 Morbid (severe) obesity with alveolar hypoventilation; E11.39 Type 2 diabetes mellitus with other diabetic ophthalmic complication; E11.65 Type 2 diabetes mellitus with hyperglycemia | CPT/HCPCS: 99222 ==

== ENCOUNTER 2024-06-22 09:54 | Outpatient (AMB) | payer OTHER, SELFPAY ==
--- NOTE | 2024-06-22 09:56 | MHC.OFFVIS ---
Vital Signs 06/22/24 09:59 Height 5 ft 8 in Weight 204 lb BMI 31.0 Intake Visit Reasons: 2w follow up s/p R CEA 06/12/2024 Intake Note: 2 week follow up Right CEA 06/12/24 Accompanied by: Self / Same As Patient Allergies No Known Allergies [NO KNOWN ALLERGIES] Allergy (Unknown, Verified 06/22/24 10:01) unknown HPI HPI 2w follow up s/p R CEA 06/12/2024: Details: The patient is a 69-year-old male presenting for a follow-up after a right carotid endarterectomy performed on June 12, 2024. He reports that postprocedure issues. Complains of mild incisional discomfort. Other than that appears to be doing relatively well In addition to the vascular surgery, the patient has a history of Type 2 Diabetes Mellitus, which has directly impacted his vascular health. There is an acknowledged need for better management of his diabetes to prevent further vascular issues. The patient mentions challenges with his diet, which needs addressing, particularly given his living situation and previous suboptimal nutritional choices. He now presents for postprocedure follow-up. Of note his left lower extremity is being treated by [facility]. [facility] Medical History Obesity hypoventilation syndrome Essential hypertension Arthritis Depression Numbness Obesity (BMI 30.0-34.9) Foot ulcer, left FLORES (obstructive sleep apnea) History of cardioversion Hiatal hernia On anticoagulant therapy On beta nga at home Fecal incontinence AA (alcohol abuse) Type 2 diabetes mellitus with diabetic autonomic (poly)neuropathy B12 deficiency Benign prostatic hyperplasia without lower urinary tract symptoms GERD (gastroesophageal reflux disease) Hypercholesterolemia Benign essential HTN Body mass index [BMI] 38.0-38.9, adult Morbid (severe) obesity due to excess calories Anxiety Paroxysmal atrial fibrillation DM (diabetes mellitus) type II uncontrolled with eye manifestation Surgical History History of amputation of great toe H/O left inguinal hernia repair History of esophagogastroduodenoscopy (EGD) Hx of colonoscopy History of surgery Deficient knowledge of leg surgery History of hip surgery History of amputation of toe History of cataract surgery History of tonsillectomy Family History Father No problems noted. Mother Asthma Brother No problems noted. Brother No problems noted. Brother No problems noted. Sister No problems noted. Sister No problems noted. Social History Household Members: Other Household Members Other:: [employer] Housing: Apartment Are you a primary adult care manager to a significant other at home: No Do you presently have visiting nurse or other home services: No Alcohol intake: current Alcohol intake frequency: former alcohol drinker Alcohol type: beer Patient Tobacco Use Status: Never used Tobacco e-Cigarette/Vaping Use: Never Used Second Hand Smoke Exposure: No Substance Use Type: Marijuana service: No Current occupational status: retired Cognitive needs: No Hearing needs: No Vision needs: Yes (Reading Glasses) Review of Systems Const All systems reviewed & are unremarkable except as noted in HPI and below Reports no additional complaints ENT Reports Normal hearing present Card Denies chest pain, Denies chest pain at rest, Denies chest pain with activity and Denies pedal edema Resp Denies cough GI Denies abdominal pain Musc Denies abnormal gait, Denies muscle cramps and Denies radiating pain into limb Skin/Breast Denies skin ulcer and Denies wounds Neuro Reports Normal hearing present and Denies abnormal gait Psych Reports no additional complaints Physical Exam Vital Signs: BMI result Body Mass Index 31.0 Const General: cooperative, healthy appearing and comfortable Orientation/consciousness: oriented to person, oriented to place and oriented to time HEENT Head: Yes normal to inspection Neck Other: Skin incision healing well Neck: Yes normal visual inspection Carotids: no bruits Chest Chest palpation & inspection: normal inspection of the chest Resp Effort & Inspection: normal respiratory effort and able to speak in complete sentences Auscultation: clear to auscultation bilaterally, no crackles, no rales, no rhonchi and no wheezes Cardio Rate: regular rate Rhythm: regular rhythm Heart sounds: S1 normal heart sound present and S2 normal heart sound present Bruits: no carotid bruits Peripheral pulses: Peripheral pulses 2+ throughout GI Inspection: Yes normal to inspection Skin Wounds: no wounds Hair: normal Neuro General: oriented to person, oriented to place and oriented to time Cranial nerves: Yes CN's II-XII intact bilaterally and Yes Normal hearing present Cognition (Neuro): normal cognition Motor exam (neuro): 5/5 motor strength present throughout Extrem Other: venous exam: No significant superficial varicosities or spider telangiectasias, minimal edema General: No clubbing, No cyanosis and No edema Psych Appearance: grossly normal Mental Status: mental status grossly normal Speech and movement: Normal speech and movement present Assessment & Plan Assessment & Plan (1) Bilateral carotid artery stenosis: Comment: 06/12/2024 - right carotid endarterectomy Code(s): I65.23 - Occlusion and stenosis of bilateral carotid arteries Category: Medical Plan: The follow-up for the right carotid endarterectomy will include a scheduled ultrasound in three months to monitor the surgical site for any residual or new obstructions. The patient will enter a surveillance protocol to regularly track the health of the carotid artery through periodic imaging. Integration of care among current providers, especially at [facility], will ensure comprehensive management of the patient?s vascular health. Management of the patient's Type 2 Diabetes Mellitus is crucial, emphasizing dietary changes with fresher, non-processed food options. Ensuring better glucose control is essential to prevent further vascular complications. Regular follow-ups and coordinating vascular care will be vital components of the management plan. Orders: Orders US carotid duplex BI 3 Months I65.23 - Occlusion and stenosis of bilateral carotid arteries Coding Level of Care Code Global (76053) Diagnoses Bilateral carotid artery stenosis I65.23
[2024-06-22 09:59] VITALS: BMI 31.0
== END 2024-06-22 10:33 | disposition home or self-care (01) ==
LOC: HO.HVS 09:54
PROVIDERS: PCP Internal Medicine; Visit Provider Surgery Vascular Surgery
DX: I65.23 Occlusion and stenosis of bilateral carotid arteries (principal)
CPT/HCPCS: 99024

== ENCOUNTER → 2024-06-22 09:54 | Outpatient (BNVA) | payer OTHER, SELFPAY | PROVIDERS: PCP Internal Medicine; Visit Provider Surgery Vascular Surgery ==

== ENCOUNTER → 2024-07-13 10:27 | Outpatient (BNVA) | payer OTHER, SELFPAY | PROVIDERS: PCP Internal Medicine; Visit Provider Physician Assistant Medical ==